=== PATIENT | male | born 1935 | race Caucasian/White ===

== ENCOUNTER 2016-11-30 18:18 | Emergency (ER) | payer OTHER ==
[~2016-11-30] VITALS: Ht 177.8 cm; Wt 53.7 kg
[~2016-11-30 18:18] MED LIST: ASPI81TA82 PO; BUPR150T3 PO; CARV6.252 PO; CITA20TA4 PO; COQ-100C2 PO; GLIM4TAB PO; LANTINJ SC; LEVA250T14 PO; LEVO50TA4 PO; LIOT25TA PO; LISI-363 PO; OMEGCAP19 PO; PROS5TAB2 PO; TAMS0.4C4 PO; VITA-13 PO
[2016-11-30 18:28] VITALS: BP 129/68; PULSE 60; RESP 18; TEMP 98.3; O2SAT 99
[2016-11-30] MEDS ORDERED: CARV25TA PO (19:03)
[2016-11-30] MEDS ORDERED: TAMS0.4C4 PO (19:03)
[2016-11-30] MEDS ORDERED: FISH120014 PO (19:03)
[2016-11-30] MEDS ORDERED: LOVA20TA PO (19:03)
[2016-11-30] MEDS ORDERED: LEVO75TA3 PO (19:03)
[2016-11-30] MEDS ORDERED: LISI10TA3 PO (19:03)
[2016-11-30] MEDS ORDERED: CHOL50006 PO (19:03)
[2016-11-30] MEDS ORDERED: COQ-100C2 PO (19:03)
[2016-11-30] MEDS ORDERED: ASPI81TA81 PO (19:05)
--- NOTE | 2016-11-30 19:06 | PD ---
HPI Chief Complaint: Skin Problem Time Seen by Provider: 19:06 Travel History International Travel<30 days: No Contact w/Intl Traveler<30days: No Traveled to known affect area: No History of Present Illness HPI 80-year-old male with history of DM presents to the ED for evaluation of pain in the left foot. Patient states he has neuropathy and normally does not have any sensation in the foot. He states that 2 days ago he began to have pain. However this resolved. He states that today when he removed his sock the fourth digit of the left foot nail came out and he noticed that the toe was red. He denies fevers, chills, weakness, limitations to range of motion or loss of strength of the extremity. He states that he sees a continuous towel roller (Dr. Joaquin) for diabetic foot check, last seen approximately 6 months ago. PFSH Past Medical History Cardiac Catheterization: Yes Cardiovascular Problems: Yes High Cholesterol: Yes Chest Pain: Yes Coronary Artery Disease: Yes Diabetes: Yes Patient Takes Glucophage: No Genitourinary: Yes (enlarged prostate) Hypertension: Yes Neurologic: Yes (neuropathy) Myocardial Infarction: Yes (x1) Thyroid Disease: Yes Tetanus Vaccination: > 5 Years Influenza Vaccination: Yes Past Surgical History AICD: Yes (biotronik) Cardiac Surgery: Yes (defib/pacemaker) Oral Surgery: Yes (polups removed from tongue) Pacemaker: Yes (biotronik) Tonsillectomy: Yes Other Surgery: Yes Social History Alcohol Use: No Tobacco Use: No Substance Use: No Allergies-Medications (Allergen,Severity, Reaction): Coded Allergies: Amoxicillin (Unverified Allergy, Unknown, 11/30/16) Sulfa (Unverified Allergy, Unknown, 11/30/16) Reported Meds & Prescriptions Reported Meds & Active Scripts Active Clindamycin (Clindamycin HCl) 150 Mg Cap 300 Mg PO Q6H 10 Days Reported Aubrey Solostar Pen Inj (Insulin Glargine) 300 Unit/Ml Pen 20 Units SQ HS Humalog Cartridge Inj (Insulin Lispro (Human) Inj) 300 Unit/3 Ml Soln 8-10 Units SQ TIDAC PRN Aspir-81 (Aspirin) 81 Mg Tabdr 1 Tab PO DAILY Vitamin D (Cholecalciferol) 5,000 Unit Tab 1 Tab PO DAILY Fish Oil ([place]-3 Fatty Acids) 1,200 Mg Cap 1 Cap PO DAILY Tamsulosin (Tamsulosin HCl) 0.4 Mg Cap 0.4 Mg PO HS Lovastatin 20 Mg Tab 20 Mg PO DAILY Coq-10 (Coenzyme Q10 (Ubidecarenone)) 100 Mg Cap 1 Cap PO DAILY Carvedilol 25 Mg Tab 25 Mg PO BID Levothyroxine (Levothyroxine Sodium) 75 Mcg Tab 75 Mcg PO DAILY Lisinopril 10 Mg Tab 10 Mg PO DAILY Review of Systems Except as stated in HPI: all other systems reviewed are Neg Physical Exam Narrative GENERAL: Well-nourished, well-developed nontoxic appearing white male in no acute distress. SKIN: Focused skin assessment warm/dry. HEAD: Normocephalic. EYES: No scleral icterus. No injection or drainage. NECK: Supple, trachea midline. No JVD or lymphadenopathy. CARDIOVASCULAR: Regular rate and rhythm without murmurs, gallops, or rubs. RESPIRATORY: Breath sounds equal bilaterally. No accessory muscle use. GASTROINTESTINAL: Abdomen soft, non-tender, nondistended. MUSCULOSKELETAL: No cyanosis. The patient is ambulatory with a cane. FOCUSED LEFT LOWER EXTREMITY EXAM: 2+ radial pulse. The nail of the fourth toe is completely avulsed. The entire digit is erythematous, warm, tender. There is 2+ edema to the mid foot. Patient is able to flex the ankle and toes. Cap refill approximately 2 seconds. BACK: Nontender without obvious deformity. No CVA tenderness. Data Data Last Documented VS Vital Signs Date Time Temp Pulse Resp B/P Pulse Ox O2 Delivery O2 Flow Rate FiO2 11/30/16 19:50 60 16 157/75 97 Room Air 11/30/16 18:28 98.3 Orders Foot, Complete (Cur6isq) (11/30/16 19:10) Basic Metabolic Panel (Bmp) (11/30/16 19:26) Complete Blood Count With Diff (11/30/16 19:26) Iv Access Insert/Monitor (11/30/16 19:26) Westergren Sedimentation Rate (11/30/16 19:26) C-Reactive Protein (Crp) (11/30/16 19:26) Clindamycin Inj (Cleocin Inj) (11/30/16 19:30) Ketorolac Inj (Toradol Inj) (11/30/16 19:30) Labs Laboratory Tests Test 11/30/16 19:45 White Blood Count 13.2 TH/MM3 Red Blood Count 4.08 MIL/MM3 Hemoglobin 12.4 GM/DL Hematocrit 35.3 % Mean Corpuscular Volume 86.5 FL Mean Corpuscular Hemoglobin 30.3 PG Mean Corpuscular Hemoglobin 35.1 % Concent Red Cell Distribution Width 13.0 % Platelet Count 222 TH/MM3 Mean Platelet Volume 7.7 FL Neutrophils (%) (Auto) 66.9 % Lymphocytes (%) (Auto) 21.8 % Monocytes (%) (Auto) 7.3 % Eosinophils (%) (Auto) 3.2 % Basophils (%) (Auto) 0.8 % Neutrophils # (Auto) 8.8 TH/MM3 Lymphocytes # (Auto) 2.9 TH/MM3 Monocytes # (Auto) 1.0 TH/MM3 Eosinophils # (Auto) 0.4 TH/MM3 Basophils # (Auto) 0.1 TH/MM3 CBC Comment DIFF FINAL Differential Comment Erythrocyte Sedimentation Rate 1 mm/hr Sodium Level 143 MEQ/L Potassium Level 4.7 MEQ/L Chloride Level 106 MEQ/L Carbon Dioxide Level 27.4 MEQ/L Anion Gap 10 MEQ/L Blood Urea Nitrogen 35 MG/DL Creatinine 2.30 MG/DL Estimat Glomerular Filtration 27 ML/MIN Rate Random Glucose 78 MG/DL Calcium Level 9.1 MG/DL MDM Medical Decision Making Medical Screen Exam Complete: Yes Emergency Medical Condition: Yes Differential Diagnosis Nail avulsion versus cellulitis versus osteomyelitis versus other Narrative Course 80-year-old male with history of DM presents to the ED for evaluation of pain in the left foot. Patient states he has neuropathy and normally does not have any sensation in the foot. He states that 2 days ago he began to have pain. However this resolved. He states that today when he removed his sock the nail of fourth digit of the left foot came off and he noticed that the toe was red. He denies fevers, chills, weakness, limitations to range of motion or loss of strength of the extremity. He states that he sees a continuous towel roller (Dr. Joaquin) for diabetic foot check, last seen approximately 6 months ago. Vitals reviewed. Physical exam reveals toenail avulsion. The 4th digit of the left foot is edematous, erythematous, warm. There is 2+ edema to the midfoot. Foot is insensate. X rays reveal [id number] osteoarthritis, no acute bony abnormality per radiology read. IV established. Patient was administered 100 mg clindamycin IV. CBC with leukocytosis of 13.2. ESR 1. CRP pending. BMP with elevated BUN and creatinine. Review of the patient's record reveals this is near baseline. Patient denies renal problems. The patient is confident that he'll be able to follow closely with his continuous towel roller. He was provided a prescription for 300 mg clindamycin 4 times a day 10 days. He is instructed to take the medication as prescribed, call for follow-up with Dr. Joaquin on Friday. I marked the area of erythema and instructed the patient to return should symptoms worsen. He indicated understanding of the instructions and is agreeable to the care plan. He stable and discharged home. Diagnosis Primary Impression: Cellulitis of fourth toe, left Additional Impression: Nail avulsion of toe Qualified Code: S91.209A - Nail avulsion of toe, initial encounter Referrals: Referral Coordinator Patient Instructions: Cellulitis (ED), General Instructions, Nail Avulsion (ED) Additional Instructions: Rest, hydrate. Do not change the dressing for 24 hours. You may shower normally. Do not submerge the wound. After bathing pat of wound dry. Allow the wound to air dry for 10-15 minutes. Apply a thin layer of antibiotic ointment and a clean, dry dressing. Take the antibiotics as they are prescribed, even if your symptoms resolve. Utilize [id number] pain medications, as described on the label, as needed. Follow up with Dr. Joaquin as discussed. Return to the ED if redness spreads beyond the marked area. Return to the ED for any urgent or emergent medical condition. Med/Other Pt SpecificInfo: Prescription(s) given Scripts Clindamycin 150 Mg [id number] Mg PO Q6H 10 Days Ref 0 Prov:Thuan Montana MD 11/30/16 Disposition: 01 DISCHARGE HOME Condition: Stable Falguni Hawkins Nov 30, 2016 19:06
[2016-11-30] MEDS ORDERED: HUMA100I2 SQ (19:08)
[2016-11-30] MEDS ORDERED: INSU1.2I SQ (19:11)
[2016-11-30] MEDS ORDERED: CLINDAMYCIN INJ 900 MG in SODIUM CHLORIDE 0.9% INJ 100 ML IV ONE (19:30)
[2016-11-30] MEDS: KETOROLAC TROMETHAMINE 30 MG/ML (IVP) VIAL IV PUSH ONE ×2 (19:30→19:53)
[2016-11-30 19:50] VITALS: BP 157/75; PULSE 60; RESP 16; O2SAT 97
[2016-11-30 19:56] LABS: AUTOMATED NEUTROPHIL # 8.8 TH/MM3 (1.8-7.7); BASOPHIL # 0.1 TH/MM3 (0-0.2); BASOPHIL % 0.8 % (0.0-2.0); EOSINOPHIL # 0.4 TH/MM3 (0-0.4); EOSINOPHIL % 3.2 % (0.0-4.0); HEMATOCRIT 35.3 % (39.0-51.0); HEMO FLAGS DIFF FINAL; LYMPH % 21.8 % (9.0-44.0); LYMPHOCYTE # 2.9 TH/MM3 (1.0-4.8); MEAN CELL VOLUME 86.5 FL (80.0-100.0); MEAN CORPUSCULAR HEMOGLOBIN 30.3 PG (27.0-34.0); MEAN CORPUSCULAR HGB CONC 35.1 % (32.0-36.0); MONO % 7.3 % (0.0-8.0); NEUT % 66.9 % (16.0-70.0); PLATELET COUNT 222 TH/MM3 (150-450); RED BLOOD COUNT 4.08 MIL/MM3 (4.50-5.90); WHITE BLOOD COUNT 13.2 TH/MM3 (4.0-11.0)
[2016-11-30 20:08] LABS: POTASSIUM 4.7 MEQ/L (3.5-5.1)
[2016-11-30 20:11] LABS: BICARBONATE 27.4 MEQ/L (21.0-32.0)
--- NOTE | 2016-11-30 20:14 | RADHPO ---
EXAM DATE/TIME: 11/30/2016 19:28 [facility] COMPARISON: No previous studies available for comparison. INDICATIONS : Left foot fourth digit pain. Fourth digit toe nail came off when patient removed his sock this nate pro. No known injury. MEDICAL HISTORY : None. SURGICAL HISTORY : None. ENCOUNTER: Initial ACUITY: 1 day PAIN SCORE: 4/10 LOCATION: Left foot. FINDINGS: Mild to moderate osteoarthritis. Vascular calcification is present. Bone spur posterior calcaneus. No acute fracture or dislocation. CONCLUSION: 1. Mild to moderate osteoarthritis. Bone spur posterior calcaneus. No acute bony abnormalities. Ry Sanchez MD on November 30, 2016 at 20:10 Board Certified Radiologist. This report was verified electronically.
[2016-11-30] MEDS ORDERED: CLIN1CAP5 PO ×2 (21:20→21:38)
[2016-11-30 21:39] VITALS: BP 170/77
== END 2016-11-30 21:41 | disposition home or self-care (01) ==
LOC: PHEFT 18:18
DX: L03.032 Cellulitis of left toe (principal); S91.205A Unspecified open wound of left lesser toe(s) with damage to nail, initial encounter; G62.9 Polyneuropathy, unspecified; I10 Essential (primary) hypertension; E11.9 Type 2 diabetes mellitus without complications; E07.9 Disorder of thyroid, unspecified; E78.00 Pure hypercholesterolemia, unspecified; X58.XXXA Exposure to other specified factors, initial encounter; Z79.4 Long term (current) use of insulin; Z87.438 Personal history of other diseases of male genital organs; Z86.79 Personal history of other diseases of the circulatory system; Z86.69 Personal history of other diseases of the nervous system and sense organs
CPT/HCPCS: 73630; 80048; 85025; 85652; 86140; 96365; 96375; 99283; J1885

== ENCOUNTER 2018-05-19 15:16 | Inpatient (IN) ==
[2018-05-19] MEDS ORDERED: Sod Chloride 0.9% Inj 1,000 ML IV.SIG SCH ×2 (15:30→16:30)
[2018-05-19 15:56] LABS: Baso # (Auto) 0.6 th/mm3 (0.0-0.2); Baso % (Auto) 2.5 % (0.0-2.0); Hematocrit 36.4 % (39.0-51.0); Hemoglobin 12.4 gm/dL (13.0-17.0); Lymph # (Auto) 1.9 th/mm3 (1.0-4.8); Lymph % (Auto) 8.5 % (9.0-44.0); Mean Corpuscular HGB Conc 34.1 % (32.0-36.0); Mean Corpuscular Hemoglobin 29.6 pg (27.0-34.0); Mean Corpuscular Volume 86.9 fL (80.0-100.0); Mean Platelet Volume 8.7 fL (7.0-11.0); Mono # (Auto) 1.5 th/mm3 (0.0-0.9); Mono % (Auto) 6.5 % (0.0-8.0); Neut # (Auto) 18.7 th/mm3 (1.8-7.7); Neut % (Auto) 82.5 % (16.0-70.0); Platelet Count 166 th/mm3 (150-450); Red Blood Count 4.19 mil/mm3 (4.50-5.90); Red Cell Distribution Width 13.5 % (11.6-17.2); White Blood Count 22.7 th/mm3 (4.0-11.0)
--- NOTE | 2018-05-19 15:59 | ED ---
HPI General Chief Complaint: Fall Stated Complaint: Fall Time Seen by Provider: 05/19/18 15:20 History of Present Illness HPI Narrative: 82-year-old male with a past medical history of heart disease, hypertension, diabetes presents to the emergency room by EMS after he was found on on the floor alert unable to move. Patient states he fell Friday evening on the floor and was unable to get up. Patient denies loss of consciousness. He states he was laying down on his right side mostly. He complains of extreme thirst,left-sided neck pain and right sided body pain. He denies drinking or eating food since the fall. Today his son was worried about him called the police and they found him on the floor. Patient denies chest pain, shortness of breath, abdominal pain, nausea, vomiting or diarrhea. Patient denies hip pain or back pain at this time. Related Data Home Medications Medication Instructions Recorded Confirmed carvedilol [Coreg] 25 mg PO BID 05/19/18 05/19/18 cholecalciferol (vitamin D3) 5,000 units PO DAILY 05/19/18 05/19/18 [Vitamin D3] insulin glargine U-300 conc 20 unit SUBCUT HS 05/19/18 05/19/18 [Toujeo Max U-300 SoloStar] insulin regular human [Novolin R 10 unit SUBCUT TIDAC 05/19/18 05/19/18 Regular U-100 Insuln] levothyroxine 75 mcg PO DAILY 05/19/18 05/19/18 lisinopril 10 mg PO DAILY 05/19/18 05/19/18 lovastatin 40 mg PO QPM 05/19/18 05/19/18 montelukast [Singulair] 10 mg PO QPM 05/19/18 05/19/18 omega 0-bxv-vbe-fish oil [Fish Oil] 1,200 mg PO DAILY 05/19/18 05/19/18 tamsulosin 0.4 mg PO DAILY 05/19/18 05/19/18 Allergies Allergy/AdvReac Type Severity Reaction Status Date / Time amoxicillin Allergy Unknown Hives Verified 05/19/18 15:19 Sulfa (Sulfonamide Allergy Unknown Nausea/Vomi Verified 05/19/18 15:19 Antibiotics) ting Review of Systems Constitutional Reports weakness Eyes Denies change in vision ENT Denies headache(s) and Denies nasal congestion Cardiovascular Denies chest pain Respiratory Denies dyspnea Gastrointestinal Denies abdominal pain Genitourinary Denies difficulty urinating Musculoskeletal Reports myalgias and Reports arthralgias Integumentary/Breasts Denies rash Neurologic Denies focal weakness, Denies numbness and Denies tingling Psychiatric Denies depression Endocrine Denies polyuria Hematologic/Lymphatic Denies easy bruising [facility] Medical History Medical History Diabetes (Acute) Hypertension (Acute) Pacemaker (Acute) Surgical History Surgical History AICD (automatic cardioverter/defibrillator) present (Acute) History of renal stent (Acute) Social History Social History Substance History: No History of Abuse Smoking Status: Never smoker How Often Do You Have a Drink Containing Alcohol: Never Recent Out of Country Travel within the Last 8 Weeks: No Immunization History Tetanus Immunization: Unsure Hx Influenza Vaccine This Season: Yes Exam Narrative Exam Narrative: GENERAL: Patient is alert and oriented -3 SKIN: Focused skin assessment warm/dry. HEAD: Atraumatic. Normocephalic. EYES: Pupils equal and round. No scleral icterus. No injection or drainage. ENT: No nasal bleeding or discharge. Mucous membranes pink and moist. NECK: Trachea midline. No JVD. Left-sided neck tenderness at the lower paraspinal muscles. CARDIOVASCULAR: Regular rate and rhythm. No murmur appreciated. RESPIRATORY: No accessory muscle use. Clear to auscultation. Breath sounds equal bilaterally. GASTROINTESTINAL: Abdomen soft, non-tender, nondistended. Hepatic and splenic margins not palpable. MUSCULOSKELETAL: No obvious deformities. No clubbing. No cyanosis. No edema. NEUROLOGICAL: Awake and alert. No obvious cranial nerve deficits. Motor grossly within normal limits. Normal speech. PSYCHIATRIC: Appropriate mood and affect; insight and judgment normal. Course Reevaluation(s) Reevaluation #1: Patient condition improved during the ER course. I personally reexamined and counseled the patient about his diagnosis and results. Time: 17:23 Initial Documented Vital Signs Pulse Rate 79 05/19/18 15:30 Respiratory Rate 18 05/19/18 15:30 Blood Pressure 178/78 H 05/19/18 15:30 Pulse Oximetry 95 05/19/18 15:30 Last Documented Vital Signs Temperature 98.7 F 05/19/18 17:23 Pulse Rate 78 05/19/18 17:23 Respiratory Rate 18 05/19/18 17:23 Blood Pressure 184/84 H 05/19/18 17:23 Pulse Oximetry 95 05/19/18 17:23 Medical Decision Making MDM Narrative Medical Screen Exam Complete: Yes Emergency Medical Condition: Yes Lab Data Result diagrams: 05/19/18 15:45 05/19/18 15:45 Lab Results 05/19/18 05/19/18 05/19/18 Range/Units 15:22 15:45 15:45 CBC w Diff Slide review pending WBC 22.7 H (4.0-11.0) th/mm3 RBC 4.19 L (4.50-5.90) mil/mm3 Hgb 12.4 L (13.0-17.0) gm/dL Hct 36.4 L (39.0-51.0) % MCV 86.9 (80.0-100.0) fL MCH 29.6 (27.0-34.0) pg MCHC 34.1 (32.0-36.0) % RDW 13.5 (11.6-17.2) % Plt Count 166 (150-450) th/mm3 MPV 8.7 (7.0-11.0) fL Neut % (Auto) 82.5 H (16.0-70.0) % Lymph % (Auto) 8.5 L (9.0-44.0) % [place] % (Auto) 6.5 (0.0-8.0) % Eos % (Auto) 0.0 (0.0-4.0) % Baso % (Auto) 2.5 H (0.0-2.0) % Neut # (Auto) 18.7 H (1.8-7.7) th/mm3 Lymph # (Auto) 1.9 (1.0-4.8) th/mm3 [place] # (Auto) 1.5 H (0.0-0.9) th/mm3 Eos # (Auto) 0.0 (0.0-0.4) th/mm3 Baso # (Auto) 0.6 H (0.0-0.2) th/mm3 WBC Differential . Diff Scan Auto diff confirmed Differential Comment . Sodium 136 (136-145) meq/L Potassium 5.3 H (3.5-5.1) meq/L Chloride 103 (98-107) meq/L Carbon Dioxide 21.1 (21.0-32.0) meq/L Anion Gap 12 (5-15) meq/L BUN 58 H (7-18) mg/dL Creatinine 3.20 H (0.60-1.30) mg/dL Estimated GFR 19 L (>89) mL/min POC Glucose 376 H (68-110) mg/dl Random Glucose 377 H (74-106) mg/dL Lactic Acid (0.4-2.0) mmol/L Calcium 9.0 (8.5-10.1) mg/dL Total Bilirubin 1.0 (0.2-1.0) mg/dL AST 54 H (15-37) U/L ALT 29 (12-78) U/L Alkaline Phosphatase 88 (45-117) U/L Total Creatine Kinase (39-308) U/L CK-MB (CK-2) (0.5-3.6) ng/mL CK-MB (CK-2) % (0.0-4.0) % Troponin I 0.41 H (0.02-0.05) ng/mL B-Natriuretic Peptide (0-100) pg/mL Total Protein 7.2 (6.4-8.2) g/dL Albumin 2.9 L (3.4-5.0) g/dL Urine Color (Yellw/Straw) Urine Clarity (Clear) Urine pH (5.0-8.5) Ur Specific [place] (1.002-1.035) Urine Protein (Neg-Trace) mg/dL Urine Glucose (UA) (Negative) mg/dL Urine Ketones (Negative) mg/dL Urine Occult Blood (Negative) Urine Nitrate (Negative) Urine Bilirubin (Negative) Urine Urobilinogen (Less than 2) mg/dL Ur Leukocyte Esterase (Negative) Urine WBC (0-5) /hpf Urine WBC Clumps (None) Urine Bacteria (None) /hpf Micro UA Comment Ur Microscopic Review Urine Culture Comments 05/19/18 05/19/18 05/19/18 Range/Units 15:45 16:15 16:55 CBC w Diff WBC (4.0-11.0) th/mm3 RBC (4.50-5.90) mil/mm3 Hgb (13.0-17.0) gm/dL Hct (39.0-51.0) % MCV (80.0-100.0) fL MCH (27.0-34.0) pg MCHC (32.0-36.0) % RDW (11.6-17.2) % Plt Count (150-450) th/mm3 MPV (7.0-11.0) fL Neut % (Auto) (16.0-70.0) % Lymph % (Auto) (9.0-44.0) % [place] % (Auto) (0.0-8.0) % Eos % (Auto) (0.0-4.0) % Baso % (Auto) (0.0-2.0) % Neut # (Auto) (1.8-7.7) th/mm3 Lymph # (Auto) (1.0-4.8) th/mm3 [place] # (Auto) (0.0-0.9) th/mm3 Eos # (Auto) (0.0-0.4) th/mm3 Baso # (Auto) (0.0-0.2) th/mm3 WBC Differential Diff Scan Differential Comment Sodium (136-145) meq/L Potassium (3.5-5.1) meq/L Chloride (98-107) meq/L Carbon Dioxide (21.0-32.0) meq/L Anion Gap (5-15) meq/L BUN (7-18) mg/dL Creatinine (0.60-1.30) mg/dL Estimated GFR (>89) mL/min POC Glucose (68-110) mg/dl Random Glucose (74-106) mg/dL Lactic Acid 2.3 H (0.4-2.0) mmol/L Calcium (8.5-10.1) mg/dL Total Bilirubin (0.2-1.0) mg/dL AST (15-37) U/L ALT (12-78) U/L Alkaline Phosphatase (45-117) U/L Total Creatine Kinase 1164 H (39-308) U/L CK-MB (CK-2) 8.4 H (0.5-3.6) ng/mL CK-MB (CK-2) % 0.7 (0.0-4.0) % Troponin I Cancelled (0.02-0.05) ng/mL B-Natriuretic Peptide 1650 H (0-100) pg/mL Total Protein (6.4-8.2) g/dL Albumin (3.4-5.0) g/dL Urine Color (Yellw/Straw) Urine Clarity (Clear) Urine pH (5.0-8.5) Ur Specific [place] (1.002-1.035) Urine Protein (Neg-Trace) mg/dL Urine Glucose (UA) (Negative) mg/dL Urine Ketones (Negative) mg/dL Urine Occult Blood (Negative) Urine Nitrate (Negative) Urine Bilirubin (Negative) Urine Urobilinogen (Less than 2) mg/dL Ur Leukocyte Esterase (Negative) Urine WBC (0-5) /hpf Urine WBC Clumps (None) Urine Bacteria (None) /hpf Micro UA Comment Ur Microscopic Review Urine Culture Comments 05/19/18 05/19/18 Range/Units 17:05 17:31 CBC w Diff WBC (4.0-11.0) th/mm3 RBC (4.50-5.90) mil/mm3 Hgb (13.0-17.0) gm/dL Hct (39.0-51.0) % MCV (80.0-100.0) fL MCH (27.0-34.0) pg MCHC (32.0-36.0) % RDW (11.6-17.2) % Plt Count (150-450) th/mm3 MPV (7.0-11.0) fL Neut % (Auto) (16.0-70.0) % Lymph % (Auto) (9.0-44.0) % [place] % (Auto) (0.0-8.0) % Eos % (Auto) (0.0-4.0) % Baso % (Auto) (0.0-2.0) % Neut # (Auto) (1.8-7.7) th/mm3 Lymph # (Auto) (1.0-4.8) th/mm3 [place] # (Auto) (0.0-0.9) th/mm3 Eos # (Auto) (0.0-0.4) th/mm3 Baso # (Auto) (0.0-0.2) th/mm3 WBC Differential Diff Scan Differential Comment Sodium (136-145) meq/L Potassium (3.5-5.1) meq/L Chloride (98-107) meq/L Carbon Dioxide (21.0-32.0) meq/L Anion Gap (5-15) meq/L BUN (7-18) mg/dL Creatinine (0.60-1.30) mg/dL Estimated GFR (>89) mL/min POC Glucose 395 H (68-110) mg/dl Random Glucose (74-106) mg/dL Lactic Acid (0.4-2.0) mmol/L Calcium (8.5-10.1) mg/dL Total Bilirubin (0.2-1.0) mg/dL AST (15-37) U/L ALT (12-78) U/L Alkaline Phosphatase (45-117) U/L Total Creatine Kinase (39-308) U/L CK-MB (CK-2) (0.5-3.6) ng/mL CK-MB (CK-2) % (0.0-4.0) % Troponin I (0.02-0.05) ng/mL B-Natriuretic Peptide (0-100) pg/mL Total Protein (6.4-8.2) g/dL Albumin (3.4-5.0) g/dL Urine Color Yellow (Yellw/Straw) Urine Clarity Clear (Clear) Urine pH 5.5 (5.0-8.5) Ur Specific [place] 1.025 (1.002-1.035) Urine Protein 300 or greater H (Neg-Trace) mg/dL Urine Glucose (UA) 250 H (Negative) mg/dL Urine Ketones Trace H (Negative) mg/dL Urine Occult Blood Large H (Negative) Urine Nitrate Negative (Negative) Urine Bilirubin Negative (Negative) Urine Urobilinogen 0.2 (Less than 2) mg/dL Ur Leukocyte Esterase Small H (Negative) Urine WBC 21-50 H (0-5) /hpf Urine WBC Clumps Occasional H (None) Urine Bacteria Many H (None) /hpf Micro UA Comment Culture indicated Ur Microscopic Review Microscopic reviewed Urine Culture Comments Culture indicated Imaging Data Radiologist's impression: Chest X-Ray 05/19/18 15:48 CONCLUSION: Clear lungs. Head CT 05/19/18 15:49 CONCLUSION: 1. No acute hemorrhage or mass effect. 2. Moderate atrophic changes again noted. . Cervical Spine CT 05/19/18 15:50 CONCLUSION: 1. Moderate to severe degenerative changes are identified without evidence for acute fracture or listhesis. Discharge Plan Discharge Disposition Patient Disposition: 30 Still Patient Discharge Condition Condition: Fair Discharge Details Discharge Comment: Admission has been discussed and accepted by Dr. Parks Diagnosis: Rhabdomyolysis, Acute UTI, CESIA (acute kidney injury), Acute dehydration, Acute hyperglycemia Physicians Team ED Provider: Ramon Perla Primary Care Provider: Primary Care Laura Byrne Attending Provider: Juan Alberto Parks Status ED Status: Admitted Patient
[2018-05-19 16:04] LABS: Chloride 103 meq/L (98-107); Potassium 5.3 meq/L (3.5-5.1); Sodium 136 meq/L (136-145)
[2018-05-19 16:08] LABS: Albumin 2.9 g/dL (3.4-5.0); Anion Gap 12 meq/L (5-15); Blood Urea Nitrogen 58 mg/dL (7-18); Carbon Dioxide 21.1 meq/L (21.0-32.0); Glucose,Random 377 mg/dL (74-106)
[2018-05-19 16:11] LABS: Alanine Aminotransferase 29 U/L (12-78); Aspartate Aminotransferase 54 U/L (15-37); Glomerular Filtration Rate 19 mL/min (>89)
[2018-05-19 16:13] LABS: Total Protein 7.2 g/dL (6.4-8.2)
[2018-05-19 16:14] LABS: Alkaline Phosphatase 88 U/L (45-117)
[2018-05-19 16:16] LABS: Troponin I 0.41 ng/mL (0.02-0.05)
[2018-05-19] MEDS ORDERED: Sodium Chlor 0.9% Inj 100 ML IV.SIG ONE (16:18)
[2018-05-19] MEDS ORDERED: Vancomycin Inj 1 GM/200 ML PIGGYBACK IV.SIG ONE (16:18)
--- NOTE | 2018-05-19 16:23 | XR ---
EXAM DATE: 05/19/2018 3:48 PM EDT AGE/SEX: 82 years / Male INDICATIONS: Shortness of breath status post fall. CLINICAL DATA: This is the patient's initial encounter. Patient reports that signs and symptoms have been present for 2 days and indicates a pain score of 0/10. MEDICAL/SURGICAL HISTORY: None. Pacemaker. COMPARISON: No prior exams available for comparison. FINDINGS: Remote nonunited right midclavicular fracture deformity. Cardiomegaly. Remote right rib fractures. Tammie ngs are clear. Pacer/ICD device from a left subclavian transvenous approach noted. CONCLUSION: Clear lungs. Electronically signed by: Gaudencio Deluna MD 05/19/2018 4:21 PM EDT
[2018-05-19] MEDS ORDERED: Vancomycin Inj 1,000 MG in Sodium Chlor 0.9% Inj 250 ML IV.SIG ONE (16:30)
--- NOTE | 2018-05-19 16:55 | CT ---
EXAM DATE: 05/19/2018 3:54 PM EDT AGE/SEX: 82 years / Male INDICATIONS: Found on floor alert and unable to move. CLINICAL DATA: This is the patient's initial encounter. Patient reports that signs and symptoms have been present for 1 day and indicates a pain score of 0/10. MEDICAL/SURGICAL HISTORY: Hypertension. Diabetes. Cardiovascular disease. Pacemaker. RADIATION DOSE: 63.91 CTDI (mGy) COMPARISON: PO[facility], CT BRAIN W/O CONTRAST, 11/29/2015. . TECHNIQUE: CT of the head without contrast. Using automated exposure control and adjustment of the mA and/or kV according to patient size, radiation dose was kept as low as reasonably achievable to ob tain optimal diagnostic quality images. DICOM format image data is available electronically for revi ew and comparison. FINDINGS: Cerebrum: The ventricles are normal for age with diffuse moderate atrophic change with sulcal and ve ntricular prominence. No evidence of midline shift, mass lesion, hemorrhage or acute infarction. No extraaxial fluid collections are seen. Posterior Fossa: The cerebellum and brainstem are intact. The 4th ventricle is midline. The cerebe llopontine angle is unremarkable. Extracranial: The visualized portion of the orbits is intact. Skull: The calvaria is intact. No evidence of skull fracture. CONCLUSION: 1. No acute hemorrhage or mass effect. 2. Moderate atrophic changes again noted. . Electronically signed by: Pan Durham MD 05/19/2018 4:54 PM EDT
[2018-05-19 17:01] LABS: CKMB Percent 0.7 % (0.0-4.0); Creatine Kinase MB 8.4 ng/mL (0.5-3.6)
--- NOTE | 2018-05-19 17:06 | CT ---
EXAM DATE: 05/19/2018 3:54 PM EDT AGE/SEX: 82 years / Male INDICATIONS: Found on floor alert and unable to move. CLINICAL DATA: This is the patient's initial encounter. Patient reports that signs and symptoms have been present for 1 day and indicates a pain score of 0/10. MEDICAL/SURGICAL HISTORY: Diabetes. Hypertension. Cardiovascular disease. Pacemaker. RADIATION DOSE: 26.74 CTDI (mGy) COMPARISON: . TECHNIQUE: Contiguous axial images were obtained using helical multirow detector technique. The vol umetric data was post-processed with multiplanar reconstruction in oblique axial, sagittal, and coron al planes. Using automated exposure control and adjustment of the mA and/or kV according to patient s ize, radiation dose was kept as low as reasonably achievable to obtain optimal diagnostic quality faviola ges. DICOM format image data is available electronically for review and comparison. FINDINGS: Alignment normal. Severe disc space narrowing at C3-4 through C7-T1 noted with mild endplate sclerosi s and multilevel osteophytosis. The odontoid process is intact. There is no prevertebral soft tissue swelling. There are no compression deformities. Multilevel uncovertebral hypertrophy is identified at C3-4 through C5-6. There is a remote appearing fracture deformity of the right clavicle identified. There is no evidence for acute fracture. There is incomplete union of the posterior arch of C1. CONCLUSION: 1. Moderate to severe degenerative changes are identified without evidence for acute fracture or lis thesis. Electronically signed by: Gaudencio Deluna MD 05/19/2018 5:04 PM EDT
[2018-05-19 17:11] LABS: Bilirubin,Urine Negative (Negative); Clarity,Urine Clear (Clear); Color,Urine Yellow (Yellw/Straw); Glucose,Urine (UA) 250 mg/dL (Negative); Leukocyte Esterase,Urine Small (Negative); Nitrite,Urine Negative (Negative); PH,Urine 5.5 (5.0-8.5); Specific Gravity,Urine 1.025 (1.002-1.035); Urobilinogen,Urine 0.2 mg/dL (Less than 2)
[2018-05-19 17:18] LABS: Bacteria,Urine Many /hpf; WBC,Urine 21-50 /hpf (0-5)
[2018-05-19] MEDS ORDERED: Vancomycin Consult Pharmacy OTHER PRN (17:41)
[2018-05-19] MEDS: Sod Chloride 0.9% Inj 1,000 ML IV.CONT SCH (17:52)
[2018-05-19] MEDS ORDERED: Dextrose 50% in Water 50 ML Vial IV.PUSH PRN (18:10)
--- NOTE | 2018-05-19 18:12 | P.HPIM ---
History of Present Illness Primary Care Physician: No Primary Care Physician History of Present Illness: Mr. Mccullough is an 82 year old male. He lives alone. He had a fall 3 days ago and has been on the floor of his home since. Today he was found by his son. He is brought into the emergency department. We find that he has a urinary tract infection and severe dehydration with decompensation. Clinical findings include hyperkalemia, acute renal failure, and rhabdomyolysis. Evidence of severe dehydration. Fluid hydration is initiated in the ER and will be continued overnight. Patient does have an elevated troponin and BNP but both of these are likely related to an accentuated by dehydration so they will repeat repeated in the morning for accuracy. Currently the patient gives some history but cannot recollect well and is not at his baseline mental state. He complains of some neck pain but no peripheral joint pains. No fevers. There is leukocytosis. Sepsis is suspected, though official diagnosis of sepsis is not possible due to normal heart rate, normal respiratory rate, and no fever. He does have leukocytosis. Infection source is the urine. Reported baseline medical conditions are hypertension, coronary artery disease, cardiac arrhythmia , and diabetes mellitus type 2. - Diagnosis (1) Hyperkalemia (2) Acute renal failure (3) Elevated troponin (4) Elevated brain natriuretic peptide (BNP) level (5) Rhabdomyolysis (6) Acute UTI (7) CESIA (acute kidney injury) (8) Acute dehydration Inpatient Certification: I certify that the inpatient services were ordered in accordance with Medicare regulations governing the order. This includes certification that hospital inpatient services are reasonable and necessary and in the case of services not specified as inpatient-only under 42 CFR 419.22(n), that they are appropriately provided as inpatient services in accordance to with the 2-midnight benchmark under 43 CFR 412.3(e) Estimated Total Length of Stay (Days): 4 Plans for Post Hospital Care: SNF Review of Systems Constitutional: No fevers, no chills no night sweats, no fatigue, weakness Eyes: No eye pain, no blurry vision, no loss of vision ENT: No sore throat, no ear pain, no rhinorrhea Cardiovascular: No chest pain, no tachycardia, no palpitations, no shortness of breath, no syncope Respiratory: No wheezing, no cough, no shortness of breath Gastrointestinal: No abdominal pain, no black tarry stools, no bright red blood per rectum, no vomiting, no diarrhea Musculoskeletal: No joint pain, no muscle cramps, no stiffness Integumentary: No rash, no ulcers, no drainage Neurologic: No sensory loss, no loss of motor function, no dizziness Psychiatric: No behavioral changes, no hallucinations, no suicidal ideations PMFSH - History History Provided By: Patient - Medical History Medical History: Medical History (Last Updated 05/19/18 @ 17:23 by Alannah Ureña, RN) Diabetes Hypertension Pacemaker - Surgical History Surgical History: Surgical History (Last Updated 05/19/18 @ 17:23 by Alannah Ureña, RN) AICD (automatic cardioverter/defibrillator) present History of renal stent - Tobacco History Smoking Status: Never smoker - Alcohol History How Often Do You Have a Drink Containing Alcohol: Never - Substance Use History Substance History: No History of Abuse - Travel History Recent Travel Out of the Country Within the Last 8 Weeks: No - Immunization History Tetanus Immunization: Unsure Hx Influenza Vaccine This Season: Yes Medications and Allergies Active Medications: Active Medications Sodium Chloride (Ns Inj) 1,000 mls @ 0 mls/hr IV.SIG BOLUS ROJELIO Last Infusion: 05/19/18 17:49 Dose: Infused Sodium Chloride (Ns Inj) 1,000 mls @ 125 mls/hr IV.CONT .Q8H ROJELIO Last Admin: 05/19/18 17:52 Dose: 125 mls/hr Cefepime HCl 1,000 mg/ Sodium (Chloride) 100 mls @ 200 mls/hr IV.SIG Q12H ROJELIO Ondansetron HCl (Zofran Inj) 4 mg IV.PUSH Q6H PRN PRN Reason: NAUSEA OR VOMITING Pharmacy Profile Note (Vancomycin Consult Pharmacy) 1 each OTHER UNSCH PRN PRN Reason: Pharmacy to dose Allergies Allergy/AdvReac Type Severity Reaction Status Date / Time amoxicillin Allergy Unknown Hives Verified 05/19/18 15:19 Sulfa (Sulfonamide Allergy Unknown Nausea/Vomi Verified 05/19/18 15:19 Antibiotics) ting Home Medications Medication Instructions Recorded Confirmed Type carvedilol [Coreg] 25 mg PO BID 05/19/18 05/19/18 History cholecalciferol (vitamin D3) 5,000 units PO DAILY 05/19/18 05/19/18 History [Vitamin D3] insulin glargine U-300 conc 20 unit SUBCUT HS 05/19/18 05/19/18 History [Toujeo Max U-300 SoloStar] insulin regular human [Novolin R 10 unit SUBCUT TIDAC 05/19/18 05/19/18 History Regular U-100 Insuln] levothyroxine 75 mcg PO DAILY 05/19/18 05/19/18 History lisinopril 10 mg PO DAILY 05/19/18 05/19/18 History lovastatin 40 mg PO QPM 05/19/18 05/19/18 History montelukast [Singulair] 10 mg PO QPM 05/19/18 05/19/18 History omega 2-pbw-url-fish oil [Fish Oil] 1,200 mg PO DAILY 05/19/18 05/19/18 History tamsulosin 0.4 mg PO DAILY 05/19/18 05/19/18 History Exam Vital signs: Vital Signs 05/19/18 15:30 05/19/18 17:23 Temperature 98.7 F Pulse Rate 79 78 Respiratory Rate 18 18 Blood Pressure 178/78 H 184/84 H Pulse Oximetry 95 95 Intake & Output 05/18/18 05/19/18 05/19/18 18:59 06:59 18:59 Intake Total 1000 / 1000 Output Total 300 / 300 Balance 700 / 700 Weight 87.09 kg Intake: IV 1000 / 1000 NS Inj 1,000 ML @ Wide Open IV. 1000 / 1000 SIG BOLUS ROJELIO Rx#:[id number] Output: Urine Amount (Catheter) 300 / 300 Straight 300 / 300 Narrative: GENERAL: NAD, A&Ox3, overall dry appearance HEAD: Normocephalic. Mucous membranes dry. NECK: Supple, trachea midline. No lymphadenopathy. EYES: No scleral icterus. No injection or drainage. CARDIOVASCULAR: Regular rate and rhythm without murmurs, gallops, or rubs. RESPIRATORY: Breath sounds equal bilaterally. No accessory muscle use. GASTROINTESTINAL: Abdomen soft, non-tender, nondistended. MUSCULOSKELETAL: No cyanosis, or edema. SKIN: Warm and dry. Dry. NEURO: No focal neurological deficits. Results - Labs CBC & Chem 7: 05/19/18 15:45 05/19/18 15:45 Labs: Short CBC 05/19/18 Range/Units 15:45 WBC 22.7 H (4.0-11.0) th/mm3 Hgb 12.4 L (13.0-17.0) gm/dL Hct 36.4 L (39.0-51.0) % Plt Count 166 (150-450) th/mm3 BMP 05/19/18 15:45 Sodium 136 Potassium 5.3 H Chloride 103 Carbon Dioxide 21.1 BUN 58 H Creatinine 3.20 H Calcium 9.0 Cardiac Enzymes 05/19/18 05/19/18 Range/Units 15:45 15:45 Total Creatine Kinase 1164 H (39-308) U/L CK-MB (CK-2) 8.4 H (0.5-3.6) ng/mL Troponin I 0.41 H Cancelled (0.02-0.05) ng/mL Liver Function 05/19/18 Range/Units 15:45 Total Bilirubin 1.0 (0.2-1.0) mg/dL AST 54 H (15-37) U/L ALT 29 (12-78) U/L Alkaline Phosphatase 88 (45-117) U/L Albumin 2.9 L (3.4-5.0) g/dL Urine 05/19/18 Range/Units 17:05 Urine Color Yellow (Yellw/Straw) Urine Clarity Clear (Clear) Urine pH 5.5 (5.0-8.5) Ur Specific [place] 1.025 (1.002-1.035) Urine Protein 300 or greater H (Neg-Trace) mg/dL Urine Glucose (UA) 250 H (Negative) mg/dL - Imaging Impressions Chest X-Ray 05/19/18 15:48 CONCLUSION: Clear lungs. Head CT 05/19/18 15:49 CONCLUSION: 1. No acute hemorrhage or mass effect. 2. Moderate atrophic changes again noted. . Cervical Spine CT 05/19/18 15:50 CONCLUSION: 1. Moderate to severe degenerative changes are identified without evidence for acute fracture or listhesis. Caprini VTE Risk Assessment Caprini VTE Risk Assessment: Moderate/High Risk (score >= 2) Caprini Risk Assessment Model: Point Value = 1 Point Value = 2 Point Value = 3 Point Value = 5 Age 41-60 Minor surgery BMI > 25 kg/m2 Swollen legs Varicose veins or History of unexplained or recurrent spontaneous Oral contraceptives or hormone replacement Sepsis (< 1 month) Serious lung disease, including pneumonia (< 1 month) Abnormal pulmonary function Acute myocardial infarction Congestive heart failure (< 1 month) History of inflammatory bowel disease Medical patient at bed rest Age 61-74 Arthroscopic surgery Major open surgery (> 45 min) Laparoscopic surgery (> 45 min) Malignancy Confined to bed (> 72 hours) Immobilizing plaster cast Central venous access Age >= 75 History of VTE Family history of VTE Factor V Leiden Prothrombin [id number] Lupus anticoagulant Anticardiolipin antibodies Elevated serum homocysteine Heparin-induced thrombocytopenia Other congenital or acquired thrombophilia Stroke (< 1 month) Elective arthroplasty Hip, pelvis, or leg fracture Acute spinal cord injury (< 1 month) Prophylaxis Regimen: Total Risk Factor Score Risk Level Prophylaxis Regimen 0-1 Low Early ambulation 2 Moderate Order ONE of the following: *Sequential Compression Device (SCD) *Heparin 5000 units SQ BID 3-4 Higher Order ONE of the following medications: *Heparin 5000 units SQ TID *Enoxaparin/Lovenox 40 mg SQ daily (WT < 150 kg, CrCl > 30 mL/min) *Enoxaparin/Lovenox 30 mg SQ daily (WT < 150 kg, CrCl > 10-29 mL/min) *Enoxaparin/Lovenox 30 mg SQ BID (WT < 150 kg, CrCl > 30 mL/min) AND/OR *Sequential Compression Device (SCD) 5 or more Highest Order ONE of the following medications: *Heparin 5000 units SQ TID (Preferred with Epidurals) *Enoxaparin/Lovenox 40 mg SQ daily (WT < 150 kg, CrCl > 30 mL/min) *Enoxaparin/Lovenox 30 mg SQ daily (WT < 150 kg, CrCl > 10-29 mL/min) *Enoxaparin/Lovenox 30 mg SQ BID (WT < 150 kg, CrCl > 30 mL/min) AND *Sequential Compression Device (SCD) Assessment and Plan - Assessment (1) Hyperkalemia Code(s): E87.5 - Hyperkalemia Status: Acute (2) Acute renal failure Code(s): N17.9 - Acute kidney failure, unspecified Status: Acute (3) Elevated troponin Code(s): R74.8 - Abnormal levels of other serum enzymes Status: Acute (4) Elevated brain natriuretic peptide (BNP) level Code(s): R79.89 - Other specified abnormal findings of blood chemistry Status : Acute (5) Rhabdomyolysis Code(s): M62.82 - Rhabdomyolysis Status: Acute (6) Acute UTI Code(s): N39.0 - Urinary tract infection, site not specified Status: Acute (7) CESIA (acute kidney injury) Code(s): N17.9 - Acute kidney failure, unspecified Status: Acute (8) Acute dehydration Code(s): E86.0 - Dehydration Status: Acute - Plan 82-year-old male admitted secondary to severe dehydration and physical metabolic decompensation after being trapped on the floor for 3 days. Acute renal failure Severe dehydration Rhabdomyolysis IV hydration Monitor electrolytes Follow renal function Monitor vital signs closely No prior history of kidney disease so this may all be related to dehydration Consider nephrology consult if this is not improving Elevated troponin Elevated BNP Likely related to dehydration Repeat labs in a.m. Hyperkalemia Likely related to dehydration IV hydration Monitor potassium levels Monitor on telemetry Hypertension Continue baseline treatment Follow blood pressures Adjust treatments as needed As needed Catapres Urinary tract infection Cefepime Vancomycin Follow urine cultures Diabetes mellitus type 2 Follow blood sugars Insulin sliding scale Diabetic diet Weakness Physical therapy evaluation once patient stabilized Prolonged time down on the floor, risk for blood clots Obtain bilateral lower extremity ultrasound DVT prophylaxis SCDs
[2018-05-19] MEDS: Insulin NovoLOG Aspart Correctional Sugar Inj SQ SCH (20:35)
--- NOTE | 2018-05-19 21:22 | P.PN ---
Subjective Interval history: NOT SEEN Physical Exam Vital signs: Vital Signs 05/19/18 15:30 05/19/18 17:23 05/19/18 17:38 Temperature 98.7 F Pulse Rate 79 78 Respiratory Rate 18 18 Blood Pressure 178/78 H 184/84 H 162/73 H Pulse Oximetry 95 95 05/19/18 18:10 05/19/18 18:33 05/19/18 19:04 Temperature 98.7 F Pulse Rate 102 H 78 74 Respiratory Rate 29 H 20 Blood Pressure 155/74 H 162/67 H Pulse Oximetry 94 L Intake & Output 05/19/18 05/19/18 05/20/18 06:59 18:59 06:59 Intake Total 1250 / 1250 200 / 200 Output Total 300 / 300 Balance 950 / 950 200 / 200 Weight 89.6 kg Intake: IV 1250 / 1250 200 / 200 Maxipime Inj 1,000 MG In NS Inj 100 / 100 100 ML @ 200 mls/hr IV.SIG ONCE ONE Rx#:[id number] NS Inj 1,000 ML @ Wide Open IV. 1000 / 1000 SIG BOLUS ROJELIO Rx#:[id number] Vancomycin Inj 1,000 MG In NS 250 / 250 Inj 250 ML @ 200 mls/hr IV.SIG ONCE ONE Rx#:[id number] Vancomycin Inj 500 MG In NS Inj 100 / 100 100 ML @ 200 mls/hr IV.SIG ONCE ONE Rx#:[id number] Output: Urine Amount (Catheter) 300 / 300 Straight 300 / 300 Other: Weight On Admission 89.6 kg Narrative: GENERAL: NAD, A&Ox3, overall dry appearance HEAD: Normocephalic. Mucous membranes dry. NECK: Supple, trachea midline. No lymphadenopathy. EYES: No scleral icterus. No injection or drainage. CARDIOVASCULAR: Regular rate and rhythm without murmurs, gallops, or rubs. RESPIRATORY: Breath sounds equal bilaterally. No accessory muscle use. GASTROINTESTINAL: Abdomen soft, non-tender, nondistended. MUSCULOSKELETAL: No cyanosis, or edema. SKIN: Warm and dry. Dry. NEURO: No focal neurological deficits. - Urinary Catheter Management Straight Cath placed during this visit: no Results - Labs CBC & Chem 7: 05/19/18 15:45 05/19/18 15:45 Laboratory Results - last 24 hr 05/19/18 05/19/18 05/19/18 15:22 15:45 15:45 CBC w Diff Slide review pending WBC 22.7 H RBC 4.19 L Hgb 12.4 L Hct 36.4 L MCV 86.9 MCH 29.6 MCHC 34.1 RDW 13.5 Plt Count 166 MPV 8.7 Neut % (Auto) 82.5 H Lymph % (Auto) 8.5 L [place] % (Auto) 6.5 Eos % (Auto) 0.0 Baso % (Auto) 2.5 H Neut # (Auto) 18.7 H Lymph # (Auto) 1.9 [place] # (Auto) 1.5 H Eos # (Auto) 0.0 Baso # (Auto) 0.6 H WBC Differential . Diff Scan Auto diff confirmed Differential Comment . Sodium 136 Potassium 5.3 H Chloride 103 Carbon Dioxide 21.1 Anion Gap 12 BUN 58 H Creatinine 3.20 H Estimated GFR 19 L POC Glucose 376 H Random Glucose 377 H Lactic Acid Calcium 9.0 Total Bilirubin 1.0 AST 54 H ALT 29 Alkaline Phosphatase 88 Total Creatine Kinase CK-MB (CK-2) CK-MB (CK-2) % Troponin I 0.41 H B-Natriuretic Peptide Total Protein 7.2 Albumin 2.9 L Urine Color Urine Clarity Urine pH Ur Specific [place] Urine Protein Urine Glucose (UA) Urine Ketones Urine Occult Blood Urine Nitrate Urine Bilirubin Urine Urobilinogen Ur Leukocyte Esterase Urine WBC Urine WBC Clumps Urine Bacteria Micro UA Comment Ur Microscopic Review Urine Culture Comments 05/19/18 05/19/18 05/19/18 15:45 16:15 16:55 CBC w Diff WBC RBC Hgb Hct MCV MCH MCHC RDW Plt Count MPV Neut % (Auto) Lymph % (Auto) [place] % (Auto) Eos % (Auto) Baso % (Auto) Neut # (Auto) Lymph # (Auto) [place] # (Auto) Eos # (Auto) Baso # (Auto) WBC Differential Diff Scan Differential Comment Sodium Potassium Chloride Carbon Dioxide Anion Gap BUN Creatinine Estimated GFR POC Glucose Random Glucose Lactic Acid 2.3 H Calcium Total Bilirubin AST ALT Alkaline Phosphatase Total Creatine Kinase 1164 H CK-MB (CK-2) 8.4 H CK-MB (CK-2) % 0.7 Troponin I Cancelled B-Natriuretic Peptide 1650 H Total Protein Albumin Urine Color Urine Clarity Urine pH Ur Specific [place] Urine Protein Urine Glucose (UA) Urine Ketones Urine Occult Blood Urine Nitrate Urine Bilirubin Urine Urobilinogen Ur Leukocyte Esterase Urine WBC Urine WBC Clumps Urine Bacteria Micro UA Comment Ur Microscopic Review Urine Culture Comments 05/19/18 05/19/18 05/19/18 17:05 17:31 19:05 CBC w Diff WBC RBC Hgb Hct MCV MCH MCHC RDW Plt Count MPV Neut % (Auto) Lymph % (Auto) [place] % (Auto) Eos % (Auto) Baso % (Auto) Neut # (Auto) Lymph # (Auto) [place] # (Auto) Eos # (Auto) Baso # (Auto) WBC Differential Diff Scan Differential Comment Sodium Potassium Chloride Carbon Dioxide Anion Gap BUN Creatinine Estimated GFR POC Glucose 395 H Random Glucose Lactic Acid 2.2 H Calcium Total Bilirubin AST ALT Alkaline Phosphatase Total Creatine Kinase CK-MB (CK-2) CK-MB (CK-2) % Troponin I B-Natriuretic Peptide Total Protein Albumin Urine Color Yellow Urine Clarity Clear Urine pH 5.5 Ur Specific [place] 1.025 Urine Protein 300 or greater H Urine Glucose (UA) 250 H Urine Ketones Trace H Urine Occult Blood Large H Urine Nitrate Negative Urine Bilirubin Negative Urine Urobilinogen 0.2 Ur Leukocyte Esterase Small H Urine WBC 21-50 H Urine WBC Clumps Occasional H Urine Bacteria Many H Micro UA Comment Culture indicated Ur Microscopic Review Microscopic reviewed Urine Culture Comments Culture indicated 05/19/18 20:23 CBC w Diff WBC RBC Hgb Hct MCV MCH MCHC RDW Plt Count MPV Neut % (Auto) Lymph % (Auto) [place] % (Auto) Eos % (Auto) Baso % (Auto) Neut # (Auto) Lymph # (Auto) [place] # (Auto) Eos # (Auto) Baso # (Auto) WBC Differential Diff Scan Differential Comment Sodium Potassium Chloride Carbon Dioxide Anion Gap BUN Creatinine Estimated GFR POC Glucose 356 H Random Glucose Lactic Acid Calcium Total Bilirubin AST ALT Alkaline Phosphatase Total Creatine Kinase CK-MB (CK-2) CK-MB (CK-2) % Troponin I B-Natriuretic Peptide Total Protein Albumin Urine Color Urine Clarity Urine pH Ur Specific [place] Urine Protein Urine Glucose (UA) Urine Ketones Urine Occult Blood Urine Nitrate Urine Bilirubin Urine Urobilinogen Ur Leukocyte Esterase Urine WBC Urine WBC Clumps Urine Bacteria Micro UA Comment Ur Microscopic Review Urine Culture Comments - Imaging Impressions Chest X-Ray 05/19/18 15:48 CONCLUSION: Clear lungs. Head CT 05/19/18 15:49 CONCLUSION: 1. No acute hemorrhage or mass effect. 2. Moderate atrophic changes again noted. . Cervical Spine CT 05/19/18 15:50 CONCLUSION: 1. Moderate to severe degenerative changes are identified without evidence for acute fracture or listhesis. - Procedures none Assessment and Plan - Assessment (1) Hyperkalemia Code(s): E87.5 - Hyperkalemia Status: Acute (2) Acute renal failure Code(s): N17.9 - Acute kidney failure, unspecified Status: Acute (3) Elevated troponin Code(s): R74.8 - Abnormal levels of other serum enzymes Status: Acute (4) Elevated brain natriuretic peptide (BNP) level Code(s): R79.89 - Other specified abnormal findings of blood chemistry Status : Acute (5) Rhabdomyolysis Code(s): M62.82 - Rhabdomyolysis Status: Acute (6) Acute UTI Code(s): N39.0 - Urinary tract infection, site not specified Status: Acute (7) CESIA (acute kidney injury) Code(s): N17.9 - Acute kidney failure, unspecified Status: Acute (8) Acute dehydration Code(s): E86.0 - Dehydration Status: Acute - Plan 82-year-old male admitted secondary to severe dehydration and physical metabolic decompensation after being trapped on the floor for 3 days. Acute renal failure Severe dehydration Rhabdomyolysis IV hydration Monitor electrolytes Follow renal function Monitor vital signs closely No prior history of kidney disease so this may all be related to dehydration Consider nephrology consult if this is not improving Elevated troponin Elevated BNP Likely related to dehydration Repeat labs in a.m. Hyperkalemia Likely related to dehydration IV hydration Monitor potassium levels Monitor on telemetry Hypertension Continue baseline treatment Follow blood pressures Adjust treatments as needed As needed Catapres Urinary tract infection Cefepime Vancomycin Follow urine cultures Diabetes mellitus type 2 Follow blood sugars Insulin sliding scale Diabetic diet Weakness Physical therapy evaluation once patient stabilized Prolonged time down on the floor, risk for blood clots Obtain bilateral lower extremity ultrasound DVT prophylaxis SCDs
[2018-05-19] MEDS ORDERED: INSULIN GLARGINE SQ SCH (22:15)
[2018-05-19] MEDS: Carvedilol 12.5 MG Tablet PO SCH (22:39)
[2018-05-20] MEDS: Sod Chloride 0.9% Inj 1,000 ML IV.CONT SCH ×3 (01:29→15:34)
[2018-05-20 05:15] LABS: Baso # (Auto) 0.3 th/mm3 (0.0-0.2); Baso % (Auto) 1.8 % (0.0-2.0); Hematocrit 35.3 % (39.0-51.0); Lymph # (Auto) 1.8 th/mm3 (1.0-4.8); Lymph % (Auto) 9.5 % (9.0-44.0); Mean Corpuscular HGB Conc 33.9 % (32.0-36.0); Mean Corpuscular Hemoglobin 30.3 pg (27.0-34.0); Mean Corpuscular Volume 89.3 fL (80.0-100.0); Mean Platelet Volume 9.1 fL (7.0-11.0); Mono # (Auto) 0.8 th/mm3 (0.0-0.9); Neut % (Auto) 84.7 % (16.0-70.0); Platelet Count 131 th/mm3 (150-450); Red Blood Count 3.95 mil/mm3 (4.50-5.90); Red Cell Distribution Width 13.2 % (11.6-17.2); White Blood Count 18.9 th/mm3 (4.0-11.0)
[2018-05-20 05:24] LABS: Chloride 105 meq/L (98-107); Potassium 5.3 meq/L (3.5-5.1); Sodium 135 meq/L (136-145)
[2018-05-20 05:28] LABS: Calcium 8.4 mg/dL (8.5-10.1)
[2018-05-20 05:29] LABS: Albumin 2.4 g/dL (3.4-5.0); Anion Gap 10 meq/L (5-15); Blood Urea Nitrogen 62 mg/dL (7-18); Carbon Dioxide 19.9 meq/L (21.0-32.0); Glucose,Random 306 mg/dL (74-106)
[2018-05-20 05:31] LABS: Alanine Aminotransferase 29 U/L (12-78)
[2018-05-20 05:32] LABS: Aspartate Aminotransferase 41 U/L (15-37); Glomerular Filtration Rate 21 mL/min (>89)
[2018-05-20 05:33] LABS: Total Protein 6.6 g/dL (6.4-8.2)
[2018-05-20 05:34] LABS: Alkaline Phosphatase 80 U/L (45-117); Creatine Kinase 539 U/L (39-308)
[2018-05-20 05:36] LABS: Troponin I 0.55 ng/mL (0.02-0.05)
[2018-05-20 05:40] LABS: Platelet Morphology Normal (Normal); RBC Morphology Normal (Normal)
[2018-05-20] MEDS: Levothyroxine 75 MCG Tablet PO SCH (05:42)
[2018-05-20 05:47] LABS: CKMB Percent 0.8 % (0.0-4.0); Creatine Kinase MB 4.5 ng/mL (0.5-3.6)
[2018-05-20] MEDS: Insulin NovoLOG Aspart Correctional Sugar Inj SQ SCH ×4 (08:30→20:54)
--- NOTE | 2018-05-20 09:25 | US ---
EXAM DATE: 05/20/2018 12:00 AM EDT AGE/SEX: 82 years / Male INDICATIONS: Bilateral leg swelling. CLINICAL DATA: This is the patient's initial encounter. Patient reports that signs and symptoms have been present for 1 day and indicates a pain score of 0/10. MEDICAL/SURGICAL HISTORY: Hypertension. Diabetes. Pacemaker. Renal stent. COMPARISON: No prior exams available for comparison. TECHNIQUE: Venous ultrasound of both lower extremities was performed from the inguinal ligament to t he proximal calf. Real-time, color Doppler and spectral tracing, compression and augmentation techni ques were used. FINDINGS: Right Leg: Normal compression of the deep venous system from the inguinal region to the proximal mildred f. No echogenic clot is seen. Normal response of the venous system to augmentation and respiration. Left Leg: Normal compression of the deep venous system from the inguinal region to the proximal calf . No echogenic clot is seen. Normal response of the venous system to augmentation and respiration. Other: None. CONCLUSION: 1. Negative for deep venous thrombosis Electronically signed by: Clint Rankin MD 05/20/2018 9:23 AM EDT
[2018-05-20 10:20] LABS: Vancomycin,Random 14.2 Comment
[2018-05-20] MEDS: Carvedilol 12.5 MG Tablet PO SCH ×2 (11:15→20:36)
--- NOTE | 2018-05-20 14:42 | P.PN ---
Subjective Interval history: Follow-up rhabdomyolysis. States he is tired. No UTI symptoms. Denies chest pain and shortness of breath. History of cardiomyopathy status post AICD denies history of CAD. Physical Exam Vital signs: Vital Signs 05/19/18 15:30 05/19/18 17:23 05/19/18 17:38 Temperature 98.7 F Pulse Rate 79 78 Respiratory Rate 18 18 Blood Pressure 178/78 H 184/84 H 162/73 H Pulse Oximetry 95 95 05/19/18 18:10 05/19/18 18:33 05/19/18 19:04 Temperature 98.7 F Pulse Rate 102 H 78 74 Respiratory Rate 29 H 20 Blood Pressure 155/74 H 162/67 H Pulse Oximetry 94 L 05/19/18 19:15 05/19/18 20:00 05/20/18 00:00 Temperature 98.4 F Pulse Rate 73 72 70 Respiratory Rate 25 H 51 H Blood Pressure 162/67 H 155/79 H Pulse Oximetry 96 92 L 05/20/18 02:00 05/20/18 03:15 05/20/18 04:00 Temperature Pulse Rate 70 71 72 Respiratory Rate 28 H 48 H Blood Pressure 142/80 H 159/79 H Pulse Oximetry 94 L 92 L 05/20/18 08:00 05/20/18 12:00 Temperature 99.2 F 98.7 F Pulse Rate 65 65 Respiratory Rate 32 H 24 Blood Pressure 157/68 H 155/77 H Pulse Oximetry 95 94 L Intake & Output 05/19/18 05/20/18 05/20/18 18:59 06:59 18:59 Intake Total 1250 / 1250 2664.6 / 2664.6 Output Total 300 / 300 650 / 650 Balance 950 / 950 2013. / 2013. Weight 89.6 kg 88.8 kg Intake: IV 1250 / 1250 2324.6 / 2324.6 NS Inj 1,000 ML @ 70 mls/hr IV. 2023.6 / 2023.6 CONT .[id number] ROJELIO Rx#: [id number] Maxipime Inj 1,000 MG In NS Inj 200 / 200 100 ML @ 200 mls/hr IV.SIG Q12H ROJELIO Rx#:[id number] NS Inj 1,000 ML @ Wide Open IV. 1000 / 1000 SIG BOLUS ROJELIO Rx#:[id number] Vancomycin Inj 1,000 MG In NS 250 / 250 Inj 250 ML @ 200 mls/hr IV.SIG ONCE ONE Rx#:[id number] Vancomycin Inj 500 MG In NS Inj 100 / 100 100 ML @ 200 mls/hr IV.SIG ONCE ONE Rx#:[id number] Oral 340 / 340 Output: Urine 650 / 650 Urine Amount (Catheter) 300 / 300 Straight 300 / 300 Other: Date of Last Bowel Movement 05/19/18 Weight On Admission 89.6 kg Narrative: GENERAL: NAD, A&Ox3 CARDIOVASCULAR: Regular rate and rhythm without murmurs, gallops, or rubs. RESPIRATORY: Breath sounds equal bilaterally. No accessory muscle use. GASTROINTESTINAL: Abdomen soft, non-tender, nondistended. MUSCULOSKELETAL: No cyanosis, or edema. SKIN: Warm and dry. Dry. NEURO: No focal neurological deficits. - Urinary Catheter Management Straight Cath placed during this visit: no Results - Labs CBC & Chem 7: 05/20/18 04:45 05/20/18 04:45 Laboratory Results - last 24 hr 05/19/18 05/19/18 05/19/18 15:22 15:45 15:45 CBC w Diff Slide review pending WBC 22.7 H RBC 4.19 L Hgb 12.4 L Hct 36.4 L MCV 86.9 MCH 29.6 MCHC 34.1 RDW 13.5 Plt Count 166 MPV 8.7 Neut % (Auto) 82.5 H Lymph % (Auto) 8.5 L [place] % (Auto) 6.5 Eos % (Auto) 0.0 Baso % (Auto) 2.5 H Neut # (Auto) 18.7 H Lymph # (Auto) 1.9 [place] # (Auto) 1.5 H Eos # (Auto) 0.0 Baso # (Auto) 0.6 H WBC Differential . Diff Scan Auto diff confirmed Differential Comment . Platelet Estimate Platelet Morphology RBC Morphology Sodium 136 Potassium 5.3 H Chloride 103 Carbon Dioxide 21.1 Anion Gap 12 BUN 58 H Creatinine 3.20 H Estimated GFR 19 L POC Glucose 376 H Random Glucose 377 H Lactic Acid Calcium 9.0 Total Bilirubin 1.0 AST 54 H ALT 29 Alkaline Phosphatase 88 Total Creatine Kinase CK-MB (CK-2) CK-MB (CK-2) % Troponin I 0.41 H B-Natriuretic Peptide Total Protein 7.2 Albumin 2.9 L Urine Color Urine Clarity Urine pH Ur Specific [place] Urine Protein Urine Glucose (UA) Urine Ketones Urine Occult Blood Urine Nitrate Urine Bilirubin Urine Urobilinogen Ur Leukocyte Esterase Urine WBC Urine WBC Clumps Urine Bacteria Micro UA Comment Ur Microscopic Review Urine Culture Comments Random Vancomycin 05/19/18 05/19/18 05/19/18 15:45 16:15 16:55 CBC w Diff WBC RBC Hgb Hct MCV MCH MCHC RDW Plt Count MPV Neut % (Auto) Lymph % (Auto) [place] % (Auto) Eos % (Auto) Baso % (Auto) Neut # (Auto) Lymph # (Auto) [place] # (Auto) Eos # (Auto) Baso # (Auto) WBC Differential Diff Scan Differential Comment Platelet Estimate Platelet Morphology RBC Morphology Sodium Potassium Chloride Carbon Dioxide Anion Gap BUN Creatinine Estimated GFR POC Glucose Random Glucose Lactic Acid 2.3 H Calcium Total Bilirubin AST ALT Alkaline Phosphatase Total Creatine Kinase 1164 H CK-MB (CK-2) 8.4 H CK-MB (CK-2) % 0.7 Troponin I Cancelled B-Natriuretic Peptide 1650 H Total Protein Albumin Urine Color Urine Clarity Urine pH Ur Specific [place] Urine Protein Urine Glucose (UA) Urine Ketones Urine Occult Blood Urine Nitrate Urine Bilirubin Urine Urobilinogen Ur Leukocyte Esterase Urine WBC Urine WBC Clumps Urine Bacteria Micro UA Comment Ur Microscopic Review Urine Culture Comments Random Vancomycin 05/19/18 05/19/18 05/19/18 17:05 17:31 19:05 CBC w Diff WBC RBC Hgb Hct MCV MCH MCHC RDW Plt Count MPV Neut % (Auto) Lymph % (Auto) [place] % (Auto) Eos % (Auto) Baso % (Auto) Neut # (Auto) Lymph # (Auto) [place] # (Auto) Eos # (Auto) Baso # (Auto) WBC Differential Diff Scan Differential Comment Platelet Estimate Platelet Morphology RBC Morphology Sodium Potassium Chloride Carbon Dioxide Anion Gap BUN Creatinine Estimated GFR POC Glucose 395 H Random Glucose Lactic Acid 2.2 H Calcium Total Bilirubin AST ALT Alkaline Phosphatase Total Creatine Kinase CK-MB (CK-2) CK-MB (CK-2) % Troponin I B-Natriuretic Peptide Total Protein Albumin Urine Color Yellow Urine Clarity Clear Urine pH 5.5 Ur Specific [place] 1.025 Urine Protein 300 or greater H Urine Glucose (UA) 250 H Urine Ketones Trace H Urine Occult Blood Large H Urine Nitrate Negative Urine Bilirubin Negative Urine Urobilinogen 0.2 Ur Leukocyte Esterase Small H Urine WBC 21-50 H Urine WBC Clumps Occasional H Urine Bacteria Many H Micro UA Comment Culture indicated Ur Microscopic Review Microscopic reviewed Urine Culture Comments Culture indicated Random Vancomycin 05/19/18 05/20/18 05/20/18 20:23 04:45 04:45 CBC w Diff Slide review pending WBC 18.9 H RBC 3.95 L Hgb 12.0 L Hct 35.3 L MCV 89.3 MCH 30.3 MCHC 33.9 RDW 13.2 Plt Count 131 L MPV 9.1 Neut % (Auto) 84.7 H Lymph % (Auto) 9.5 [place] % (Auto) 4.0 Eos % (Auto) 0.0 Baso % (Auto) 1.8 Neut # (Auto) 16.0 H Lymph # (Auto) 1.8 [place] # (Auto) 0.8 Eos # (Auto) 0.0 Baso # (Auto) 0.3 H WBC Differential . Diff Scan Auto diff confirmed Differential Comment . Platelet Estimate Low L Platelet Morphology Normal RBC Morphology Normal Sodium 135 L Potassium 5.3 H Chloride 105 Carbon Dioxide 19.9 L Anion Gap 10 BUN 62 H Creatinine 2.90 H Estimated GFR 21 L POC Glucose 356 H Random Glucose 306 H Lactic Acid Calcium 8.4 L Total Bilirubin 0.8 AST 41 H ALT 29 Alkaline Phosphatase 80 Total Creatine Kinase 539 H CK-MB (CK-2) 4.5 H CK-MB (CK-2) % 0.8 Troponin I 0.55 H B-Natriuretic Peptide Total Protein 6.6 D Albumin 2.4 L Urine Color Urine Clarity Urine pH Ur Specific [place] Urine Protein Urine Glucose (UA) Urine Ketones Urine Occult Blood Urine Nitrate Urine Bilirubin Urine Urobilinogen Ur Leukocyte Esterase Urine WBC Urine WBC Clumps Urine Bacteria Micro UA Comment Ur Microscopic Review Urine Culture Comments Random Vancomycin 14.2 05/20/18 05/20/18 05/20/18 04:45 05:57 08:02 CBC w Diff WBC RBC Hgb Hct MCV MCH MCHC RDW Plt Count MPV Neut % (Auto) Lymph % (Auto) [place] % (Auto) Eos % (Auto) Baso % (Auto) Neut # (Auto) Lymph # (Auto) [place] # (Auto) Eos # (Auto) Baso # (Auto) WBC Differential Diff Scan Differential Comment Platelet Estimate Platelet Morphology RBC Morphology Sodium Potassium Chloride Carbon Dioxide Anion Gap BUN Creatinine Estimated GFR POC Glucose 325 H 268 H Random Glucose Lactic Acid Calcium Total Bilirubin AST ALT Alkaline Phosphatase Total Creatine Kinase CK-MB (CK-2) CK-MB (CK-2) % Troponin I B-Natriuretic Peptide 1466 H Total Protein Albumin Urine Color Urine Clarity Urine pH Ur Specific [place] Urine Protein Urine Glucose (UA) Urine Ketones Urine Occult Blood Urine Nitrate Urine Bilirubin Urine Urobilinogen Ur Leukocyte Esterase Urine WBC Urine WBC Clumps Urine Bacteria Micro UA Comment Ur Microscopic Review Urine Culture Comments Random Vancomycin 05/20/18 11:11 CBC w Diff WBC RBC Hgb Hct MCV MCH MCHC RDW Plt Count MPV Neut % (Auto) Lymph % (Auto) [place] % (Auto) Eos % (Auto) Baso % (Auto) Neut # (Auto) Lymph # (Auto) [place] # (Auto) Eos # (Auto) Baso # (Auto) WBC Differential Diff Scan Differential Comment Platelet Estimate Platelet Morphology RBC Morphology Sodium Potassium Chloride Carbon Dioxide Anion Gap BUN Creatinine Estimated GFR POC Glucose 270 H Random Glucose Lactic Acid Calcium Total Bilirubin AST ALT Alkaline Phosphatase Total Creatine Kinase CK-MB (CK-2) CK-MB (CK-2) % Troponin I B-Natriuretic Peptide Total Protein Albumin Urine Color Urine Clarity Urine pH Ur Specific [place] Urine Protein Urine Glucose (UA) Urine Ketones Urine Occult Blood Urine Nitrate Urine Bilirubin Urine Urobilinogen Ur Leukocyte Esterase Urine WBC Urine WBC Clumps Urine Bacteria Micro UA Comment Ur Microscopic Review Urine Culture Comments Random Vancomycin Microbiology 05/19/18 16:45 Blood - Peripheral Aerobic Blood Culture - Preliminary No growth in 1 day 05/19/18 16:45 Blood - Peripheral Anaerobic Blood Culture - Preliminary Enterococcus faecalis 05/19/18 17:05 Catheterized Urine Urine Culture - Preliminary gram negative rods 05/19/18 16:55 Blood - Peripheral Aerobic Blood Culture - Preliminary No growth in 1 day 05/19/18 16:55 Blood - Peripheral Anaerobic Blood Culture - Preliminary No growth in 1 day - Imaging Impressions Chest X-Ray 05/19/18 15:48 CONCLUSION: Clear lungs. Head CT 05/19/18 15:49 CONCLUSION: 1. No acute hemorrhage or mass effect. 2. Moderate atrophic changes again noted. . Cervical Spine CT 05/19/18 15:50 CONCLUSION: 1. Moderate to severe degenerative changes are identified without evidence for acute fracture or listhesis. Venous Doppler Study 05/20/18 00:00 CONCLUSION: 1. Negative for deep venous thrombosis - Procedures none Assessment and Plan - Assessment (1) Hyperkalemia Code(s): E87.5 - Hyperkalemia Status: Acute (2) Acute renal failure Code(s): N17.9 - Acute kidney failure, unspecified Status: Acute (3) Elevated troponin Code(s): R74.8 - Abnormal levels of other serum enzymes Status: Acute (4) Elevated brain natriuretic peptide (BNP) level Code(s): R79.89 - Other specified abnormal findings of blood chemistry Status : Acute (5) Rhabdomyolysis Code(s): M62.82 - Rhabdomyolysis Status: Acute (6) Acute UTI Code(s): N39.0 - Urinary tract infection, site not specified Status: Acute (7) CESIA (acute kidney injury) Code(s): N17.9 - Acute kidney failure, unspecified Status: Acute (8) Acute dehydration Code(s): E86.0 - Dehydration Status: Acute - Plan 82-year-old male admitted secondary to severe dehydration and physical metabolic decompensation after being trapped on the floor for 3 days. Acute renal failure history of chronic kidney disease stage IV Severe dehydration Rhabdomyolysis Continue cautious IV hydration Monitor electrolytes Follow renal function Monitor vital signs closely Consider nephrology consult if this is not improving Elevated troponin Elevated BNP Likely related to dehydration and rhabdomyolysis. Patient denies chest pain EKG with ventricular pacing Consider stress test Hyperkalemia Likely related to dehydration IV hydration Monitor potassium levels Monitor on telemetry Hypertension Continue baseline treatment Follow blood pressures Adjust treatments as needed As needed Catapres Urinary tract infection with gram-negative deshawn Enterococcus faecalis bacteremia Severe sepsis Cefepime Vancomycin Follow blood urine cultures Diabetes mellitus type 2, uncontrolled Follow blood sugars Insulin sliding scale restart home medications Diabetic diet Weakness Physical therapy evaluation DVT prophylaxis SCDs and subcu heparin Discharge Planning: Keep patient in ICU
[2018-05-20] MEDS ORDERED: Vancomycin Inj 1 GM/200 ML PIGGYBACK IV.SIG SCH (16:00)
[2018-05-20] MEDS: Montelukast 10 MG Tablet PO SCH ×2 (16:27→19:25)
--- NOTE | 2018-05-20 17:30 | P.PNWCN ---
Wound Care Nurse Consult Description: Wound consult ordered by for wound management. Communicated with: Kaylynn DRIVER, Recommendation: 1. Encourage patient to reposition self every 2 hours for comfort and offloading. 2. Apply thin even layer of Calazime cream to intra gluteal cleft and buttocks. 3. Ensure good moisture control. Additional information: Patient was seen today by newswriter for wound management. Patient alert and oriented resting in bed in no acute distress.Patient was able to independently reposition self to right side for assessment.1 cotton underpad and 2 UltraSorb removed from under patient.Patient incontinent of bladder pericare performed condom cath noted on bed.Guard Manager was able to visualize gluteal folds and surrounding tissue.Patient noted to have intact hypertrophic soft scar tissue to bilateral gluteus all tissue blanchable to touch Calazime applied in thin even layer for moisture protection.
--- NOTE | 2018-05-20 21:12 | ECG ---
Date Performed: 05/19/2018 Time Performed: 22:06:55 PTAGE: 82 years EKG: ELECTRONIC VENTRICULAR PACEMAKER ABNORMAL RHYTHM ECG PREVIOUS TRACING : 04/05/2014 11.19 Since the previous tracing, no significant change noted DOCTOR: Mason Saez Interpretating Date/Time 05/20/2018 21:10:20
[2018-05-20] MEDS: Heparin - SQ 10,000 UNITS/ML Vial SQ SCH (21:49)
[2018-05-21 05:16] LABS: Chloride 109 meq/L (98-107); Potassium 4.6 meq/L (3.5-5.1); Sodium 137 meq/L (136-145)
[2018-05-21 05:20] LABS: Albumin 2.2 g/dL (3.4-5.0); Anion Gap 10 meq/L (5-15); Baso # (Auto) 0.1 th/mm3 (0.0-0.2); Baso % (Auto) 0.4 % (0.0-2.0); Blood Urea Nitrogen 68 mg/dL (7-18); Calcium 8.1 mg/dL (8.5-10.1); Carbon Dioxide 18.2 meq/L (21.0-32.0); Eos # (Auto) 0.1 th/mm3 (0.0-0.4); Eos % (Auto) 0.8 % (0.0-4.0); Glucose,Random 220 mg/dL (74-106); Hematocrit 31.5 % (39.0-51.0); Lymph % (Auto) 12.8 % (9.0-44.0); Magnesium 2.1 mg/dL (1.5-2.5); Mean Corpuscular Hemoglobin 30.6 pg (27.0-34.0); Mean Corpuscular Volume 87.5 fL (80.0-100.0); Mean Platelet Volume 9.8 fL (7.0-11.0); Mono # (Auto) 0.7 th/mm3 (0.0-0.9); Mono % (Auto) 4.6 % (0.0-8.0); Neut % (Auto) 81.4 % (16.0-70.0); Platelet Count 149 th/mm3 (150-450); Red Blood Count 3.61 mil/mm3 (4.50-5.90); Red Cell Distribution Width 13.5 % (11.6-17.2); White Blood Count 15.9 th/mm3 (4.0-11.0)
[2018-05-21 05:23] LABS: Alanine Aminotransferase 38 U/L (12-78); Aspartate Aminotransferase 37 U/L (15-37)
[2018-05-21 05:24] LABS: Glomerular Filtration Rate 21 mL/min (>89)
[2018-05-21 05:25] LABS: Total Protein 6.4 g/dL (6.4-8.2)
[2018-05-21 05:26] LABS: Alkaline Phosphatase 95 U/L (45-117)
[2018-05-21 05:29] LABS: Troponin I 0.38 ng/mL (0.02-0.05)
[2018-05-21] MEDS: Levothyroxine 75 MCG Tablet PO SCH (06:08)
[2018-05-21] MEDS: Heparin - SQ 10,000 UNITS/ML Vial SQ SCH ×3 (06:08→23:58)
[2018-05-21] MEDS: Sod Chloride 0.9% Inj 1,000 ML IV.CONT SCH ×2 (06:11→20:31)
[2018-05-21] MEDS ORDERED: Insulin Detemir Inj 1,000 UNIT/10 ML Vial SQ ONE (06:24)
[2018-05-21] MEDS: Insulin NovoLOG Aspart Correctional Sugar Inj SQ SCH ×4 (08:56→20:34)
[2018-05-21] MEDS: Carvedilol 12.5 MG Tablet PO SCH ×2 (09:44→20:32)
--- NOTE | 2018-05-21 11:39 | P.PN ---
Subjective Interval history: Follow-up UTI and bacteremia. States he is feeling better today. 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 No recent chest pain and shortness of breath. No history of CAD. Physical Exam Vital signs: Vital Signs 05/20/18 12:00 05/20/18 16:00 05/20/18 19:00 Temperature 98.7 F 98.1 F Pulse Rate 65 64 113 H Respiratory Rate 24 21 Blood Pressure 155/77 H 169/84 H Pulse Oximetry 94 L 94 L 05/20/18 20:00 05/20/18 23:59 05/21/18 03:00 Temperature 97.5 F L 98.9 F Pulse Rate 62 61 63 Respiratory Rate 18 19 Blood Pressure 165/81 H 163/73 H Pulse Oximetry 94 L 94 L 05/21/18 04:00 Temperature 98.3 F Pulse Rate 62 Respiratory Rate 30 H Blood Pressure 173/90 H Pulse Oximetry 90 L Intake & Output 05/20/18 05/21/18 05/21/18 18:59 06:59 18:59 Intake Total 1415.4 / 1415.4 1580 / 1580 Output Total 950 / 950 Balance 465.4 / 465.4 1580 / 1580 Weight 91 kg Intake: IV 1075.4 / 1075.4 1100 / 1100 NS Inj 1,000 ML @ 70 mls/hr IV. 975.4 / 975.4 1000 / 1000 CONT .[id number] ROJELIO Rx#: [id number] Maxipime Inj 1,000 MG In NS Inj 100 / 100 100 / 100 100 ML @ 200 mls/hr IV.SIG Q12H ROJELIO Rx#:[id number] Oral 340 / 340 480 / 480 Output: Urine 650 / 650 Urine Amount (Catheter) 300 / 300 Straight 300 / 300 Other: # Urine Diapers 5 Date of Last Bowel Movement 05/19/18 05/21/18 # Bowel Movements 2 Narrative: GENERAL: NAD, A&Ox3 CARDIOVASCULAR: Regular rate and rhythm without murmurs, gallops, or rubs. RESPIRATORY: Breath sounds equal bilaterally. No accessory muscle use. GASTROINTESTINAL: Abdomen soft, non-tender, nondistended. MUSCULOSKELETAL: No cyanosis, or edema. SKIN: Warm and dry. Dry. NEURO: No focal neurological deficits. - Urinary Catheter Management Straight Cath placed during this visit: no Results - Labs CBC & Chem 7: 05/21/18 04:30 05/21/18 04:30 Laboratory Results - last 24 hr 05/19/18 05/20/18 05/20/18 17:05 16:13 20:40 CBC w Diff WBC RBC Hgb Hct MCV MCH MCHC RDW Plt Count MPV Neut % (Auto) Lymph % (Auto) [place] % (Auto) Eos % (Auto) Baso % (Auto) Neut # (Auto) Lymph # (Auto) [place] # (Auto) Eos # (Auto) Baso # (Auto) WBC Differential Diff Scan Differential Comment Sodium Potassium Chloride Carbon Dioxide Anion Gap BUN Creatinine Estimated GFR POC Glucose 298 H 398 H Random Glucose Calcium Magnesium Total Bilirubin AST ALT Alkaline Phosphatase Troponin I Total Protein Albumin Urine Color Yellow Urine Clarity Clear Urine pH 5.5 Ur Specific [place] 1.025 Urine Protein 300 or greater H Urine Glucose (UA) 250 H Urine Ketones Trace H Urine Occult Blood Large H Urine Nitrate Negative Urine Bilirubin Negative Urine Urobilinogen 0.2 Ur Leukocyte Esterase Small H Urine WBC 21-50 H Urine WBC Clumps Occasional H Urine Bacteria Many H Micro UA Comment Culture indicated Ur Microscopic Review Microscopic reviewed Urine Culture Comments Culture indicated 05/21/18 05/21/18 05/21/18 04:30 04:30 06:47 CBC w Diff Slide review pending WBC 15.9 H RBC 3.61 L Hgb 11.0 L Hct 31.5 L MCV 87.5 MCH 30.6 MCHC 35.0 RDW 13.5 Plt Count 149 L MPV 9.8 Neut % (Auto) 81.4 H Lymph % (Auto) 12.8 [place] % (Auto) 4.6 Eos % (Auto) 0.8 Baso % (Auto) 0.4 Neut # (Auto) 13.0 H Lymph # (Auto) 2.0 [place] # (Auto) 0.7 Eos # (Auto) 0.1 Baso # (Auto) 0.1 WBC Differential . Diff Scan Auto diff confirmed Differential Comment . Sodium 137 Potassium 4.6 Chloride 109 H Carbon Dioxide 18.2 L Anion Gap 10 BUN 68 H Creatinine 2.90 H Estimated GFR 21 L POC Glucose 205 H Random Glucose 220 H Calcium 8.1 L Magnesium 2.1 Total Bilirubin 0.6 AST 37 ALT 38 Alkaline Phosphatase 95 Troponin I 0.38 H Total Protein 6.4 Albumin 2.2 L Urine Color Urine Clarity Urine pH Ur Specific [place] Urine Protein Urine Glucose (UA) Urine Ketones Urine Occult Blood Urine Nitrate Urine Bilirubin Urine Urobilinogen Ur Leukocyte Esterase Urine WBC Urine WBC Clumps Urine Bacteria Micro UA Comment Ur Microscopic Review Urine Culture Comments Microbiology 05/19/18 16:55 Blood - Peripheral Aerobic Blood Culture - Preliminary Group D Enterococcus 05/19/18 16:55 Blood - Peripheral Anaerobic Blood Culture - Preliminary No growth in 2 days 05/19/18 16:45 Blood - Peripheral Aerobic Blood Culture - Preliminary gram positive cocci 05/19/18 16:45 Blood - Peripheral Anaerobic Blood Culture - Preliminary Enterococcus faecalis 05/19/18 17:05 Catheterized Urine Urine Culture - Final Escherichia coli - Imaging ITS Impressions Chest X-Ray 05/19/18 15:48 CONCLUSION: Clear lungs. Head CT 05/19/18 15:49 CONCLUSION: 1. No acute hemorrhage or mass effect. 2. Moderate atrophic changes again noted. . Cervical Spine CT 05/19/18 15:50 CONCLUSION: 1. Moderate to severe degenerative changes are identified without evidence for acute fracture or listhesis. Venous Doppler Study 05/20/18 00:00 CONCLUSION: 1. Negative for deep venous thrombosis - Procedures none Assessment and Plan - Assessment (1) Hyperkalemia Code(s): E87.5 - Hyperkalemia Status: Acute (2) Acute renal failure Code(s): N17.9 - Acute kidney failure, unspecified Status: Acute (3) Elevated troponin Code(s): R74.8 - Abnormal levels of other serum enzymes Status: Acute (4) Elevated brain natriuretic peptide (BNP) level Code(s): R79.89 - Other specified abnormal findings of blood chemistry Status : Acute (5) Rhabdomyolysis Code(s): M62.82 - Rhabdomyolysis Status: Acute (6) Acute UTI Code(s): N39.0 - Urinary tract infection, site not specified Status: Acute (7) CESIA (acute kidney injury) Code(s): N17.9 - Acute kidney failure, unspecified Status: Acute (8) Acute dehydration Code(s): E86.0 - Dehydration Status: Acute - Plan 82-year-old male admitted secondary to severe dehydration and physical metabolic decompensation after being trapped on the floor for 3 days. Acute renal failure history of chronic kidney disease stage IV Severe dehydration Rhabdomyolysis Clinically improving continue cautious IV hydration creatinine down to 2.3 Monitor electrolytes Follow renal function Monitor vital signs closely Consider nephrology consult if this is not improving Elevated troponin Elevated BNP Likely related to acute kidney injury, dehydration and rhabdomyolysis. Patient denies chest pain EKG with ventricular pacing Consider stress test Obtain recent cardiac workup from patient's big data engineer Hyperkalemia Likely related to dehydration IV hydration Monitor potassium levels Monitor on telemetry Hypertension Continue baseline treatment Follow blood pressures Adjust treatments as needed As needed Micky Add Norvasc for better control E. coli UTI Bacteremia with group D enterococcus and gram-positive cocci in aerobic bottle and Enterococcus faecalis in anaerobic bottle. Possible Pseudo-bacteremia Severe sepsis Cefepime Vancomycin Follow blood urine cultures Will consult infectious disease and repeat blood cultures today Diabetes mellitus type 2, uncontrolled Follow blood sugars Insulin sliding scale start Levemir 10 units given this morning. Also start 20 units at bedtime Diabetic diet Weakness Physical therapy evaluation, needs rehab Discharge Planning: transfer to med surg
[2018-05-21] MEDS: amLODIPine 5 MG Tablet PO SCH (12:44)
[2018-05-21] MEDS: Montelukast 10 MG Tablet PO SCH (17:52)
--- NOTE | 2018-05-21 20:28 | P.CONID ---
History of Present Illness Service: ID Consult date: 05/21/18 Requesting Physician: Elvin Willson Reason for Consult: E coli UTI and enterococcal bacteremia. Primary Care Provider: No Primary Care Physician Family Provider: No Primary Care Physician History of Present Illness: Pt is a very poor historian, history obtained form the chart and his RN @ b/s 82 yo male with h/o hypertension, coronary artery disease, cardiac arrhythmia, and diabetes mellitus type 2, CHF and sp AICD placement 6 yrs ago. Pt was found down @ home He lives alone. He remained on the floor of his home for 3 days. He was found by his son and was brought into the emergency department. He was diagnosed urinary tract infection and severe dehydration, hyperkalemia, acute renal failure, and rhabdomyolysis. On presentation afebrile, but with WBC of 22 K. UA was abronrmal, cw infection HIs blood clx are growing E.coli in the urine and Enterococcus in 3/4 bottles He was fluid resuscitated Started on broad spectrum abx (vanco+ zosyn) Pt improved, and now with stable afebrile vss Review of Systems All other systems reviewed negative except as stated in HPI, other (poor historian) PMFSH - History History Provided By: Patient - Medical History Medical History: Medical History (Last Reviewed 05/21/18 @ 20:25 by Nayana May MD) Diabetes Hypertension Pacemaker - Surgical History Surgical History: Surgical History (Last Reviewed 05/21/18 @ 20:25 by Nayana May MD) AICD (automatic cardioverter/defibrillator) present History of renal stent - Family History Family History: Family History (Last Updated 05/21/18 @ 20:26 by Nayana May MD) Other Family history non-contributory - Social History I have reviewed the patient's Social History: Yes - Tobacco History Smoking Status: Never smoker - Alcohol History How Often Do You Have a Drink Containing Alcohol: Never - Substance Use History Substance History: No History of Abuse - Travel History Recent Travel in the [place] Within the Last 8 Weeks: No Recent Travel Out of the Country Within the Last 8 Weeks: No - Immunization History Tetanus Immunization: Unsure Hx Influenza Vaccine This Season: Yes Medications and Allergies Active Medications: Active Medications Amlodipine Besylate (Norvasc) 5 mg PO DAILY ROJELIO Last Admin: 10/04/18 12:44 Dose: 5 mg Aspirin (Ecotrin) 325 mg PO DAILY [facility] Last Admin: 05/21/18 12:44 Dose: 325 mg Carvedilol (Coreg) 25 mg PO BID [facility] Last Admin: 05/21/18 09:44 Dose: 25 mg Clonidine HCl (Catapres) 0.1 mg PO Q6H PRN PRN Reason: SYS BP GREATER THAN 160 [facility] Last Admin: 05/21/18 04:54 Dose: 0.1 mg Dextrose (D50w Vial) 50 ml IV.PUSH UNSCH PRN PRN Reason: PER HYPOGLYCEMIA PROTOCOL Glucagon (Glucagon Inj) 1 mg OTHER PRN PRN PRN Reason: for Hypoglycemia Protocol Heparin Sodium (Porcine) (Heparin Inj) 5,000 units SQ Q8HR [facility] Last Admin: 05/21/18 15:41 Dose: 5,000 units Sodium Chloride (Ns Inj) 1,000 mls @ 70 mls/hr IV.CONT .[id number] [facility] Last Infusion: 05/21/18 17:54 Dose: 70 mls/hr Vancomycin HCl 1,500 mg/ (Sodium Chloride) 515 mls @ 250 mls/hr IV.SIG Q48H ROJELIO Cefepime HCl 1,000 mg/ Sodium (Chloride) 100 mls @ 200 mls/hr IV.SIG Q24H ROJELIO Insulin Aspart (Novolog Insulin Correctional Sugar Inj) 0 unit SQ ACHS [facility]; Protocol Last Admin: 05/21/18 17:51 Dose: 3 unit Insulin Detemir (Levemir Inj) 20 unit SQ HS [facility] Insulin Human Regular (Novolin R Inj) 10 units SQ TIDAC [facility] Last Admin: 05/21/18 17:51 Dose: 10 units Levothyroxine Sodium (Synthroid) 75 mcg PO DAILY@0600 [facility] Last Admin: 05/21/18 06:08 Dose: 75 mcg Miscellaneous Information ([facility] Ordered Lab Info) 1 each OTHER ONCE ONE Stop: 05/23/18 20:46 Montelukast Sodium (Singulair) 10 mg PO QPM [facility] Last Admin: 05/21/18 17:52 Dose: 10 mg Ondansetron HCl (Zofran Inj) 4 mg IV.PUSH Q6H PRN PRN Reason: NAUSEA OR VOMITING Pom(Toujeo Max U-300 (/Units/Ml)) 0 each SQ HS [facility] Last Admin: 05/19/18 22:37 Dose: Not Given Pharmacy Profile Note (Vancomycin Consult Pharmacy) 1 each OTHER UNSCH PRN PRN Reason: Pharmacy to dose Tamsulosin HCl (Flomax) 0.4 mg PO DAILY [facility] Last Admin: 05/21/18 09:44 Dose: 0.4 mg Allergies Allergy/AdvReac Type Severity Reaction Status Date / Time amoxicillin Allergy Unknown Hives Verified 05/19/18 15:19 Sulfa (Sulfonamide Allergy Unknown Nausea/Vomi Verified 05/19/18 15:19 Antibiotics) ting Home Medications Medication Instructions Recorded Confirmed Type carvedilol [Coreg] 25 mg PO BID 05/19/18 05/19/18 History cholecalciferol (vitamin D3) 5,000 units PO DAILY 05/19/18 05/19/18 History [Vitamin D3] insulin glargine U-300 conc 20 unit SUBCUT HS 05/19/18 05/19/18 History [Toujeo Max U-300 SoloStar] insulin regular human [Novolin R 10 unit SUBCUT TIDAC 05/19/18 05/19/18 History Regular U-100 Insuln] levothyroxine 75 mcg PO DAILY 05/19/18 05/19/18 History lisinopril 10 mg PO DAILY 05/19/18 05/19/18 History lovastatin 40 mg PO QPM 05/19/18 05/19/18 History montelukast [Singulair] 10 mg PO QPM 05/19/18 05/19/18 History omega 2-ezc-tlj-fish oil [Fish Oil] 1,200 mg PO DAILY 05/19/18 05/19/18 History tamsulosin 0.4 mg PO DAILY 05/19/18 05/19/18 History Exam Vital signs: Vital Signs 05/20/18 23:59 05/21/18 03:00 05/21/18 04:00 Temperature 98.9 F 98.3 F Pulse Rate 61 63 62 Respiratory Rate 19 30 H Blood Pressure 163/73 H 173/90 H Pulse Oximetry 94 L 90 L 05/21/18 06:07 05/21/18 08:00 05/21/18 08:24 Temperature 98.1 F Pulse Rate 64 72 Respiratory Rate 31 H 28 H Blood Pressure 160/74 H 168/78 H Pulse Oximetry 92 L 92 L 05/21/18 11:48 05/21/18 11:59 05/21/18 12:24 Temperature 97.9 F Pulse Rate 64 62 Respiratory Rate 20 19 Blood Pressure 148/71 H 151/71 H Pulse Oximetry 95 94 L 05/21/18 16:00 05/21/18 16:24 05/21/18 20:00 Temperature 97.9 F 98.3 F Pulse Rate 60 63 Respiratory Rate 18 22 Blood Pressure 146/65 H 158/73 H Pulse Oximetry 95 95 Intake & Output 05/21/18 05/21/18 05/22/18 06:59 18:59 06:59 Intake Total 1580 / 1580 1546 / 1546 Output Total 775 / 775 Balance 1580 / 1580 771 / 771 Weight 91 kg Intake: IV 1100 / 1100 826 / 826 NS Inj 1,000 ML @ 70 mls/hr IV. 1000 / 1000 826 / 826 CONT .[id number] ROJELIO Rx#: [id number] Maxipime Inj 1,000 MG In NS Inj 100 / 100 100 ML @ 200 mls/hr IV.SIG Q12H ROJELIO Rx#:[id number] Oral 480 / 480 720 / 720 Output: Urine 775 / 775 Other: # Urine Diapers 5 Date of Last Bowel Movement 05/21/18 05/21/18 # Bowel Movements 2 - Constitutional no acute distress, obese - Routine HEENT Exam Head: Present: normocephalic, atraumatic Eye: Present: EOMI, PERRL ENT: Present: mucous membranes moist. Absent: dentition normal (poor dentition) - Routine Neck Exam Present: supple, full ROM. Absent: JVD - Routine Chest/Breast/Axilla Exam Chest wall: Present: pacemaker (AICD on L chest in place, well healed scar, no redness, no sweelling) - Routine Respiratory Exam Present: CTA bilaterally. Absent: accessory muscle use, rales, respiratory distress, rhonchi - Routine Cardiovascular Exam Present: RRR, S1, S2. Absent: murmur, gallop, rubs - Routine Abdominal Exam Present: soft, normoactive bowel sounds. Absent: tenderness, distended - Routine Extremities Exam Present: full ROM. Absent: cyanosis, clubbing, edema - Routine Skin Exam Present: warm. Absent: intact, rash - Routine Neurological Exam Present: alert, oriented X3, CN II-XII intact, moving all extremities, hearing grossly intact, normal speech - Routine Psychiatric Exam Present: normal affect, cooperative Results - Labs CBC & Chem 7: 05/21/18 04:30 05/21/18 04:30 Labs: Laboratory Results - last 24 hr 05/20/18 05/21/18 05/21/18 20:40 04:30 04:30 CBC w Diff Slide review pending WBC 15.9 H RBC 3.61 L Hgb 11.0 L Hct 31.5 L MCV 87.5 MCH 30.6 MCHC 35.0 RDW 13.5 Plt Count 149 L MPV 9.8 Neut % (Auto) 81.4 H Lymph % (Auto) 12.8 [place] % (Auto) 4.6 Eos % (Auto) 0.8 Baso % (Auto) 0.4 Neut # (Auto) 13.0 H Lymph # (Auto) 2.0 [place] # (Auto) 0.7 Eos # (Auto) 0.1 Baso # (Auto) 0.1 WBC Differential . Diff Scan Auto diff confirmed Differential Comment . Sodium 137 Potassium 4.6 Chloride 109 H Carbon Dioxide 18.2 L Anion Gap 10 BUN 68 H Creatinine 2.90 H Estimated GFR 21 L POC Glucose 398 H Random Glucose 220 H Calcium 8.1 L Magnesium 2.1 Total Bilirubin 0.6 AST 37 ALT 38 Alkaline Phosphatase 95 Troponin I 0.38 H Total Protein 6.4 Albumin 2.2 L 05/21/18 05/21/18 05/21/18 06:47 11:30 16:15 CBC w Diff WBC RBC Hgb Hct MCV MCH MCHC RDW Plt Count MPV Neut % (Auto) Lymph % (Auto) V[place] % (Auto) Eos % (Auto) Baso % (Auto) Neut # (Auto) Lymph # (Auto) [place] # (Auto) Eos # (Auto) Baso # (Auto) WBC Differential Diff Scan Differential Comment Sodium Potassium Chloride Carbon Dioxide Anion Gap BUN Creatinine Estimated GFR POC Glucose 205 H 232 H 235 H Random Glucose Calcium Magnesium Total Bilirubin AST ALT Alkaline Phosphatase Troponin I Total Protein Albumin - Imaging Chest X-Ray 05/19/18 15:48 CONCLUSION: Clear lungs. Head CT 05/19/18 15:49 CONCLUSION: 1. No acute hemorrhage or mass effect. 2. Moderate atrophic changes again noted. . Cervical Spine CT 05/19/18 15:50 CONCLUSION: 1. Moderate to severe degenerative changes are identified without evidence for acute fracture or listhesis. Venous Doppler Study 05/20/18 00:00 CONCLUSION: 1. Negative for deep venous thrombosis Assessment and Plan - Plan Found down Acute rhabdomylisis E.coli UTI ARF Enterococcal high grade bacteremia in AICD settings - r/o pacemaker lead endocarditisi Multiple med problems (HTN, CHF CAD, DM) cont currently zosyn , vanco] repeat BC 2 D echo will likely need KATT matt RN
--- NOTE | 2018-05-21 20:29 | P.PNADD ---
Addendum to Inpatient Note Additional information: pt seen , chart reviewed full note to follow stevie matson RN @ b/[facility]
[2018-05-21] MEDS: Insulin Detemir Inj 1,000 UNIT/10 ML Vial SQ SCH (20:32)
[2018-05-21] MEDS: Vancomycin Inj 1,500 MG in Sodium Chlor 0.9% Inj 500 ML IV.SIG SCH (20:34)
[2018-05-22 06:33] LABS: Potassium 3.9 meq/L (3.5-5.1)
[2018-05-22 06:35] LABS: Calcium 8.3 mg/dL (8.5-10.1)
[2018-05-22 06:36] LABS: Carbon Dioxide 17.1 meq/L (21.0-32.0)
[2018-05-22] MEDS: Levothyroxine 75 MCG Tablet PO SCH (06:44)
[2018-05-22] MEDS: Heparin - SQ 10,000 UNITS/ML Vial SQ SCH ×3 (06:44→21:38)
[2018-05-22 07:02] LABS: Magnesium 2.1 mg/dL (1.5-2.5)
[2018-05-22] MEDS: Insulin NovoLOG Aspart Correctional Sugar Inj SQ SCH ×4 (07:44→21:42)
[2018-05-22] MEDS: amLODIPine 5 MG Tablet PO SCH (09:40)
[2018-05-22] MEDS: Carvedilol 12.5 MG Tablet PO SCH ×2 (09:40→21:38)
--- NOTE | 2018-05-22 10:33 | ECHRPT ---
Indication: Sepsis and Possible Endocarditis CONCLUSIONS Mildly dilated left ventricle. Wall thickness is measured at the upper limits of normal. The left ventricular systolic function is severely reduced with estimated ejection fraction of 25%. Global hypokinesis possibly more pronounced in the mid to basal inferior region. Moderate mitral annular calcification is present. No definite evidence for endocarditis. BP: / HR: Rhythm: MEASUREMENTS (Male / Female) Normal Values Technical Quality:Fair 2D ECHO LV Diastolic Diameter PLAX 4.6 cm 4.2 - 5.9 / 3.9 - 5.3 cm LV Systolic Diameter PLAX 3.7 cm IVS Diastolic Thickness 1.1 cm 0.6 - 1.0 / 0.6 - 0.9 cm LVPW Diastolic Thickness 1.1 cm 0.6 - 1.0 / 0.6 - 0.9 cm LV Relative Wall Thickness 0.5 Aortic Root Diameter 3.0 cm LA Systolic Diameter LX 2.9 cm 3.0 - 4.0 / 2.7 - 3.8 cm FINDINGS LEFT VENTRICLE Mildly dilated left ventricle. Wall thickness is measured at the upper limits of normal. The left ventricular systolic function is severely reduced with estimated ejection fraction of 25%. Global hypokinesis possibly more pronounced in the mid to basal inferior region. RIGHT VENTRICLE A pacemaker wire is noted. Normal right ventricular size and systolic function. LEFT ATRIUM The left atrial size is normal. RIGHT ATRIUM The right atrial size is normal. ATRIAL SEPTUM Normal atrial septal thickness without atrial level shunting by limited color doppler interrogation. AORTA The aortic root and proximal ascending aorta are normal in size on limited imaging. MITRAL VALVE Moderate mitral annular calcification is present. AORTIC VALVE Trileaflet aortic valve. Minimal leaflet sclerosis. TRICUSPID VALVE Structurally normal tricuspid valve. No tricuspid valve stenosis or regurgitation. PULMONARY VALVE The pulmonary valve is not well visualized. PERICARDIUM No pericardial effusion. Albino Benoit MD (Electronically Signed) Final Date:22 May 2018 10:32
[2018-05-22] MEDS: Sod Chloride 0.9% Inj 1,000 ML IV.CONT SCH (10:55)
--- NOTE | 2018-05-22 11:18 | P.PN ---
Subjective Interval history: Follow-up bacteremia and diabetes mellitus. Patient had difficulty breathing last night improved today still on room air. Also was hypoglycemic states noncompliant with insulin at home. Physical Exam Vital signs: Vital Signs 05/21/18 11:48 05/21/18 11:59 05/21/18 12:24 Temperature 97.9 F Pulse Rate 64 62 Respiratory Rate 20 19 Blood Pressure 148/71 H 151/71 H Pulse Oximetry 95 94 L 05/21/18 16:00 05/21/18 16:24 05/21/18 20:00 Temperature 97.9 F 98.3 F Pulse Rate 60 63 Respiratory Rate 18 22 Blood Pressure 146/65 H 158/73 H Pulse Oximetry 95 95 05/22/18 00:00 05/22/18 04:00 05/22/18 08:00 Temperature 97.9 F 96.1 F L 97.9 F Pulse Rate 60 60 112 H Respiratory Rate 18 20 17 Blood Pressure 167/70 H 157/69 H 127/84 Pulse Oximetry 94 L 95 95 05/22/18 10:10 Temperature Pulse Rate Respiratory Rate 18 Blood Pressure Pulse Oximetry Intake & Output 05/21/18 05/22/18 05/22/18 18:59 06:59 18:59 Intake Total 1546 / 1546 909 / 909 1000 / 1000 Output Total 775 / 775 Balance 771 / 771 909 / 909 1000 / 1000 Weight 94 kg Intake: IV 826 / 826 789 / 789 1000 / 1000 NS Inj 1,000 ML @ 70 mls/hr IV. 826 / 826 174 / 174 1000 / 1000 CONT .[id number] ROJELIO Rx#: [id number] Maxipime Inj 1,000 MG In NS Inj 100 / 100 100 ML @ 200 mls/hr IV.SIG Q24H ROJELIO Rx#:[id number] Vancomycin Inj 1,500 MG In NS 515 / 515 Inj 500 ML @ 250 mls/hr IV.SIG Q48H ROJELIO Rx#:[id number] Oral 720 / 720 120 / 120 Output: Urine 775 / 775 Other: # Voids 2 Date of Last Bowel Movement 05/21/18 Narrative: GENERAL: NAD, A&Ox3 CARDIOVASCULAR: Regular rate and rhythm without murmurs, gallops, or rubs. RESPIRATORY: Breath sounds equal bilaterally. No accessory muscle use. Mild expiratory wheezes GASTROINTESTINAL: Abdomen soft, non-tender, nondistended. MUSCULOSKELETAL: No cyanosis, or edema. SKIN: Warm and dry. Dry. NEURO: No focal neurological deficits. - Urinary Catheter Management Straight Cath placed during this visit: no Results - Labs CBC & Chem 7: 05/21/18 04:30 05/22/18 05:45 Laboratory Results - last 24 hr 05/21/18 05/21/18 05/21/18 11:30 16:15 20:27 Sodium Potassium Chloride Carbon Dioxide Anion Gap BUN Creatinine Estimated GFR POC Glucose 232 H 235 H 185 H Random Glucose Calcium Magnesium 05/22/18 05/22/18 05/22/18 05:45 07:30 07:41 Sodium 141 Potassium 3.9 Chloride 114 H Carbon Dioxide 17.1 L Anion Gap 10 BUN 70 H Creatinine 2.70 H Estimated GFR 23 L POC Glucose 59 L 65 L Random Glucose 54 L D Calcium 8.3 L Magnesium 2.1 05/22/18 05/22/18 07:50 08:01 Sodium Potassium Chloride Carbon Dioxide Anion Gap BUN Creatinine Estimated GFR POC Glucose 69 75 Random Glucose Calcium Magnesium Microbiology 05/21/18 06:35 Blood - Peripheral Aerobic Blood Culture - Preliminary No growth in 1 day 05/21/18 06:35 Blood - Peripheral Anaerobic Blood Culture - Preliminary No growth in 1 day 05/21/18 06:25 Blood - Peripheral Aerobic Blood Culture - Preliminary No growth in 1 day 05/21/18 06:25 Blood - Peripheral Anaerobic Blood Culture - Preliminary No growth in 1 day 05/19/18 16:55 Blood - Peripheral Aerobic Blood Culture - Final Enterococcus faecalis 05/19/18 16:55 Blood - Peripheral Anaerobic Blood Culture - Preliminary No growth in 3 days 05/19/18 16:45 Blood - Peripheral Aerobic Blood Culture - Final Enterococcus faecalis 05/19/18 16:45 Blood - Peripheral Anaerobic Blood Culture - Final Enterococcus faecalis 05/19/18 17:05 Catheterized Urine Urine Culture - Final Escherichia coli - Imaging ITS Impressions Chest X-Ray 05/19/18 15:48 CONCLUSION: Clear lungs. Head CT 05/19/18 15:49 CONCLUSION: 1. No acute hemorrhage or mass effect. 2. Moderate atrophic changes again noted. . Cervical Spine CT 05/19/18 15:50 CONCLUSION: 1. Moderate to severe degenerative changes are identified without evidence for acute fracture or listhesis. Venous Doppler Study 05/20/18 00:00 CONCLUSION: 1. Negative for deep venous thrombosis - Procedures none Assessment and Plan - Assessment (1) Hyperkalemia Code(s): E87.5 - Hyperkalemia Status: Acute (2) Acute renal failure Code(s): N17.9 - Acute kidney failure, unspecified Status: Acute (3) Elevated troponin Code(s): R74.8 - Abnormal levels of other serum enzymes Status: Acute (4) Elevated brain natriuretic peptide (BNP) level Code(s): R79.89 - Other specified abnormal findings of blood chemistry Status : Acute (5) Rhabdomyolysis Code(s): M62.82 - Rhabdomyolysis Status: Acute (6) Acute UTI Code(s): N39.0 - Urinary tract infection, site not specified Status: Acute (7) CESIA (acute kidney injury) Code(s): N17.9 - Acute kidney failure, unspecified Status: Acute (8) Acute dehydration Code(s): E86.0 - Dehydration Status: Acute - Plan 82-year-old male admitted secondary to severe dehydration and physical metabolic decompensation after being trapped on the floor for 3 days. E. coli UTI High-grade enterococcal bacteremia rule out endocarditis Severe sepsis Echocardiogram negative for endocarditis. Will order KATT consult patient's cement side laster Discussed with infectious disease, switch cefepime to Rocephin and continue vancomycin Follow blood urine cultures Acute renal failure history of chronic kidney disease stage IV Severe dehydration Rhabdomyolysis Clinically improving continue cautious IV hydration creatinine down to 2.7 baseline 2.3. Because of expiratory wheezes will discontinue IV fluids for now. Incentive spirometry and albuterol as needed Monitor electrolytes Follow renal function Monitor vital signs closely Consider nephrology consult if this is not improving Elevated troponin Elevated BNP Likely related to acute kidney injury, dehydration and rhabdomyolysis. Patient denies chest pain EKG with ventricular pacing Consider stress test Obtain recent cardiac workup from patient's cement side laster EF 25% status post AICD unable to start ANNIE or arm secondary to acute kidney injury continue beta- randa Hyperkalemia Likely related to dehydration IV hydration Monitor potassium levels Monitor on telemetry Hypertension Continue baseline treatment Follow blood pressures Adjust treatments as needed As needed Catapres Add Norvasc for better control Diabetes mellitus type 2, labile Follow blood sugars Insulin sliding scale continue Levemir 20 units at bedtime and discontinue preprandial insulin. Hypoglycemia protocol Diabetic diet Weakness Physical therapy evaluation, needs rehab Discharge Planning: Needs IV antibiotic pending clearance of bacteremia
--- NOTE | 2018-05-22 11:46 | P.PNID ---
Subjective Remarks: feels OK afebrile repeat clx P Grew ent fecalis sparrow S with gent synergy S Antibiotics: cefepime vanco Allergies/Adverse Reactions: Allergies amoxicillin Allergy (Unknown, Verified 05/19/18 15:19) Hives Sulfa (Sulfonamide Antibiotics) Allergy (Unknown, Verified 05/19/18 15:19) Nausea/Vomiting Objective Vital Signs 05/21/18 11:48 05/21/18 11:59 05/21/18 12:24 Temperature 97.9 F Pulse Rate 64 62 Respiratory Rate 20 19 Blood Pressure 148/71 H 151/71 H Pulse Oximetry 95 94 L 05/21/18 16:00 05/21/18 16:24 05/21/18 20:00 Temperature 97.9 F 98.3 F Pulse Rate 60 63 Respiratory Rate 18 22 Blood Pressure 146/65 H 158/73 H Pulse Oximetry 95 95 05/22/18 00:00 05/22/18 04:00 05/22/18 08:00 Temperature 97.9 F 96.1 F L 97.9 F Pulse Rate 60 60 112 H Respiratory Rate 18 20 17 Blood Pressure 167/70 H 157/69 H 127/84 Pulse Oximetry 94 L 95 95 05/22/18 10:10 Temperature Pulse Rate Respiratory Rate 18 Blood Pressure Pulse Oximetry Intake & Output 05/21/18 05/22/18 05/22/18 18:59 06:59 18:59 Intake Total 1546 / 1546 909 / 909 1100 / 1100 Output Total 775 / 775 Balance 771 / 771 909 / 909 1100 / 1100 Weight 94 kg Intake: IV 826 / 826 789 / 789 1100 / 1100 NS Inj 1,000 ML @ 70 mls/hr IV. 826 / 826 174 / 174 1100 / 1100 CONT .[id number] ROJELIO Rx#: [id number] Maxipime Inj 1,000 MG In NS Inj 100 / 100 100 ML @ 200 mls/hr IV.SIG Q24H ROJELIO Rx#:[id number] Vancomycin Inj 1,500 MG In NS 515 / 515 Inj 500 ML @ 250 mls/hr IV.SIG Q48H ROJELIO Rx#:[id number] Oral 720 / 720 120 / 120 Output: Urine 775 / 775 Other: # Voids 2 Date of Last Bowel Movement 05/21/18 05/21/18 06:35 Blood - Peripheral Aerobic Blood Culture - Preliminary No growth in 1 day 05/21/18 06:35 Blood - Peripheral Anaerobic Blood Culture - Preliminary No growth in 1 day 05/21/18 06:25 Blood - Peripheral Aerobic Blood Culture - Preliminary No growth in 1 day 05/21/18 06:25 Blood - Peripheral Anaerobic Blood Culture - Preliminary No growth in 1 day 05/19/18 16:55 Blood - Peripheral Aerobic Blood Culture - Final Enterococcus faecalis 05/19/18 16:55 Blood - Peripheral Anaerobic Blood Culture - Preliminary No growth in 3 days 05/19/18 16:45 Blood - Peripheral Aerobic Blood Culture - Final Enterococcus faecalis 05/19/18 16:45 Blood - Peripheral Anaerobic Blood Culture - Final Enterococcus faecalis 05/19/18 17:05 Catheterized Urine Urine Culture - Final Escherichia coli Lab - Hematology Results 05/21/18 04:30 CBC w Diff Slide review pending WBC 15.9 H RBC 3.61 L Hgb 11.0 L Hct 31.5 L MCV 87.5 MCH 30.6 MCHC 35.0 RDW 13.5 Plt Count 149 L MPV 9.8 Neut % (Auto) 81.4 H Lymph % (Auto) 12.8 [place] % (Auto) 4.6 Eos % (Auto) 0.8 Baso % (Auto) 0.4 Neut # (Auto) 13.0 H Lymph # (Auto) 2.0 [place] # (Auto) 0.7 Eos # (Auto) 0.1 Baso # (Auto) 0.1 WBC Differential . Diff Scan Auto diff confirmed Differential Comment . Lab - Chemistry Results 05/20/18 05/20/18 05/21/18 16:13 20:40 04:30 Sodium 137 Potassium 4.6 Chloride 109 H Carbon Dioxide 18.2 L Anion Gap 10 BUN 68 H Creatinine 2.90 H Estimated GFR 21 L POC Glucose 298 H 398 H Random Glucose 220 H Calcium 8.1 L Magnesium 2.1 Total Bilirubin 0.6 AST 37 ALT 38 Alkaline Phosphatase 95 Troponin I 0.38 H Total Protein 6.4 Albumin 2.2 L 05/21/18 05/21/18 05/21/18 06:47 11:30 16:15 Sodium Potassium Chloride Carbon Dioxide Anion Gap BUN Creatinine Estimated GFR POC Glucose 205 H 232 H 235 H Random Glucose Calcium Magnesium Total Bilirubin AST ALT Alkaline Phosphatase Troponin I Total Protein Albumin 05/21/18 05/22/18 05/22/18 20:27 05:45 07:30 Sodium 141 Potassium 3.9 Chloride 114 H Carbon Dioxide 17.1 L Anion Gap 10 BUN 70 H Creatinine 2.70 H Estimated GFR 23 L POC Glucose 185 H 59 L Random Glucose 54 L D Calcium 8.3 L Magnesium 2.1 Total Bilirubin AST ALT Alkaline Phosphatase Troponin I Total Protein Albumin 05/22/18 05/22/18 05/22/18 07:41 07:50 08:01 Sodium Potassium Chloride Carbon Dioxide Anion Gap BUN Creatinine Estimated GFR POC Glucose 65 L 69 75 Random Glucose Calcium Magnesium Total Bilirubin AST ALT Alkaline Phosphatase Troponin I Total Protein Albumin 05/22/18 11:36 Sodium Potassium Chloride Carbon Dioxide Anion Gap BUN Creatinine Estimated GFR POC Glucose 253 H Random Glucose Calcium Magnesium Total Bilirubin AST ALT Alkaline Phosphatase Troponin I Total Protein Albumin Imaging: ITS Impressions Chest X-Ray 05/19/18 15:48 CONCLUSION: Clear lungs. Head CT 05/19/18 15:49 CONCLUSION: 1. No acute hemorrhage or mass effect. 2. Moderate atrophic changes again noted. . Cervical Spine CT 05/19/18 15:50 CONCLUSION: 1. Moderate to severe degenerative changes are identified without evidence for acute fracture or listhesis. Venous Doppler Study 05/20/18 00:00 CONCLUSION: 1. Negative for deep venous thrombosis Physical Exam: GENERAL: NAD SKIN: Warm and dry. no rash HEAD: Atraumatic. Normocephalic. EYES: Pupils equal and round. No scleral icterus. No injection or drainage. ENT: No nasal bleeding or discharge. Mucous membranes pink and moist. NECK: Trachea midline. No JVD. CARDIOVASCULAR: Regular rate and rhythm. + L sided AICD, no skin changes over it RESPIRATORY: No accessory muscle use. Clear to auscultation. Breath sounds equal bilaterally. GASTROINTESTINAL: Abdomen soft, non-tender, nondistended. Hepatic and splenic margins not palpable. MUSCULOSKELETAL: Extremities without clubbing, cyanosis, or edema. No obvious deformities. NEUROLOGICAL: Awake and alert. No obvious cranial nerve deficits. Motor grossly within normal limits. Five out of 5 muscle strength in the arms and legs. Normal speech. PSYCHIATRIC: Appropriate mood and affect; insight and judgment normal. Assessment and Plan - Plan Found down Acute rhabdomylisis E.coli UTI, sparrow S including ampicillin ARF Enterococcal high grade bacteremia in AICD settings - r/o pacemaker lead endocarditisi Multiple med problems (HTN, CHF CAD, DM) Amoxicillin allergy (hives reported) change cefepime to CFTX cont vancomycin fu repeat BC 2 D echo will likely need KATT dw Dr Willson
[2018-05-22] MEDS: Montelukast 10 MG Tablet PO SCH (17:02)
[2018-05-22] MEDS: Insulin Detemir Inj 1,000 UNIT/10 ML Vial SQ SCH (21:41)
[2018-05-23] MEDS: Heparin - SQ 10,000 UNITS/ML Vial SQ SCH ×3 (05:44→21:07)
[2018-05-23] MEDS: Levothyroxine 75 MCG Tablet PO SCH (05:46)
[2018-05-23 08:33] LABS: Potassium 4.5 meq/L (3.5-5.1)
[2018-05-23 08:41] LABS: Calcium 8.6 mg/dL (8.5-10.1); Carbon Dioxide 17.3 meq/L (21.0-32.0)
[2018-05-23 08:42] LABS: Baso # (Auto) 0.1 th/mm3 (0.0-0.2); Baso % (Auto) 0.8 % (0.0-2.0); Eos # (Auto) 0.4 th/mm3 (0.0-0.4); Eos % (Auto) 4.4 % (0.0-4.0); Hematocrit 33.6 % (39.0-51.0); Hemoglobin 11.6 gm/dL (13.0-17.0); Lymph # (Auto) 2.3 th/mm3 (1.0-4.8); Lymph % (Auto) 23.5 % (9.0-44.0); Mean Corpuscular HGB Conc 34.5 % (32.0-36.0); Mean Corpuscular Volume 87.2 fL (80.0-100.0); Mean Platelet Volume 9.7 fL (7.0-11.0); Mono # (Auto) 1.1 th/mm3 (0.0-0.9); Neut # (Auto) 6.1 th/mm3 (1.8-7.7); Neut % (Auto) 60.3 % (16.0-70.0); Platelet Count 169 th/mm3 (150-450); Red Blood Count 3.85 mil/mm3 (4.50-5.90); Red Cell Distribution Width 13.9 % (11.6-17.2)
[2018-05-23 08:45] LABS: Magnesium 2.2 mg/dL (1.5-2.5)
[2018-05-23] MEDS: Carvedilol 12.5 MG Tablet PO SCH ×2 (10:59→21:08)
[2018-05-23] MEDS: Insulin NovoLOG Aspart Correctional Sugar Inj SQ SCH ×4 (10:59→21:05)
[2018-05-23] MEDS: amLODIPine 5 MG Tablet PO SCH (10:59)
--- NOTE | 2018-05-23 14:55 | P.PN ---
Subjective Interval history: Follow-up sepsis. States he is doing okay denies shortness of breath currently on room air. He is voiding. Physical Exam Vital signs: Vital Signs 05/22/18 16:00 05/22/18 20:00 05/22/18 22:00 Temperature 97.0 F L 98.8 F Pulse Rate 66 65 63 Respiratory Rate 18 18 Blood Pressure 183/80 H 163/72 H Pulse Oximetry 95 94 L 05/22/18 23:54 05/23/18 04:25 05/23/18 08:00 Temperature 98.6 F 97.8 F Pulse Rate 64 60 63 Respiratory Rate 18 20 19 Blood Pressure 168/74 H 165/73 H 177/79 H Pulse Oximetry 94 L 95 94 L 05/23/18 12:00 05/23/18 14:11 Temperature 97.6 F Pulse Rate 56 L Respiratory Rate 19 19 Blood Pressure 145/67 H Pulse Oximetry 95 Intake & Output 05/22/18 05/23/18 05/23/18 18:59 06:59 18:59 Intake Total 1200 / 1200 240 / 240 Output Total 1250 / 1250 Balance 1200 / 1200 -1010 / -1010 Weight 94.2 kg Intake: IV 1200 / 1200 NS Inj 1,000 ML @ 70 mls/hr IV. 1100 / 1100 CONT .[id number] ROJELIO Rx#: [id number] Rocephin Inj 2,000 MG In NS Inj 100 / 100 100 ML @ 200 mls/hr IV.SIG Q24H ROJELIO Rx#:[id number] Oral 240 / 240 Output: Urine 1250 / 1250 Other: Date of Last Bowel Movement 05/22/18 05/22/18 05/22/18 # Bowel Movements 1 Narrative: GENERAL: NAD, A&Ox3 CARDIOVASCULAR: Regular rate and rhythm without murmurs, gallops, or rubs. RESPIRATORY: Breath sounds equal bilaterally. No accessory muscle use. Mild expiratory wheezes GASTROINTESTINAL: Abdomen soft, non-tender, nondistended. MUSCULOSKELETAL: No cyanosis, or edema. SKIN: Warm and dry. Dry. NEURO: No focal neurological deficits. - Urinary Catheter Management Straight Cath placed during this visit: no Results - Labs CBC & Chem 7: 05/23/18 07:40 05/23/18 07:40 Laboratory Results - last 24 hr 10/01/0205/22/18 05/22/18 05:45 16:08 21:21 CBC w Diff WBC RBC Hgb Hct MCV MCH MCHC RDW Plt Count MPV Neut % (Auto) Lymph % (Auto) [place] % (Auto) Eos % (Auto) Baso % (Auto) Neut # (Auto) Lymph # (Auto) [place] # (Auto) Eos # (Auto) Baso # (Auto) WBC Differential Differential Comment Sodium Potassium Chloride Carbon Dioxide Anion Gap BUN Creatinine Estimated GFR POC Glucose 279 H 220 H Random Glucose Hemoglobin A1c 9.0 H Calcium Magnesium 05/23/18 05/23/18 05/23/18 07:22 07:40 07:40 CBC w Diff Auto diff final WBC 10.0 RBC 3.85 L Hgb 11.6 L Hct 33.6 L MCV 87.2 MCH 30.0 MCHC 34.5 RDW 13.9 Plt Count 169 MPV 9.7 Neut % (Auto) 60.3 Lymph % (Auto) 23.5 [place] % (Auto) 11.0 H Eos % (Auto) 4.4 H Baso % (Auto) 0.8 Neut # (Auto) 6.1 Lymph # (Auto) 2.3 [place] # (Auto) 1.1 H Eos # (Auto) 0.4 Baso # (Auto) 0.1 WBC Differential . Differential Comment . Sodium 140 Potassium 4.5 Chloride 112 H Carbon Dioxide 17.3 L Anion Gap 11 BUN 71 H Creatinine 2.70 H Estimated GFR 23 L POC Glucose 139 H Random Glucose 158 H D Hemoglobin A1c Calcium 8.6 Magnesium 2.2 05/23/18 11:25 CBC w Diff WBC RBC Hgb Hct MCV MCH MCHC RDW Plt Count MPV Neut % (Auto) Lymph % (Auto) [place] % (Auto) Eos % (Auto) Baso % (Auto) Neut # (Auto) Lymph # (Auto) [place] # (Auto) Eos # (Auto) Baso # (Auto) WBC Differential Differential Comment Sodium Potassium Chloride Carbon Dioxide Anion Gap BUN Creatinine Estimated GFR POC Glucose 173 H Random Glucose Hemoglobin A1c Calcium Magnesium Microbiology 05/21/18 06:35 Blood - Peripheral Aerobic Blood Culture - Preliminary No growth in 2 days 05/21/18 06:35 Blood - Peripheral Anaerobic Blood Culture - Preliminary No growth in 2 days 05/21/18 06:25 Blood - Peripheral Aerobic Blood Culture - Preliminary No growth in 2 days 05/21/18 06:25 Blood - Peripheral Anaerobic Blood Culture - Preliminary No growth in 2 days 05/19/18 16:55 Blood - Peripheral Aerobic Blood Culture - Final Enterococcus faecalis 05/19/18 16:55 Blood - Peripheral Anaerobic Blood Culture - Preliminary No growth in 4 days - Procedures none Assessment and Plan - Assessment (1) Hyperkalemia Code(s): E87.5 - Hyperkalemia Status: Acute (2) Acute renal failure Code(s): N17.9 - Acute kidney failure, unspecified Status: Acute (3) Elevated troponin Code(s): R74.8 - Abnormal levels of other serum enzymes Status: Acute (4) Elevated brain natriuretic peptide (BNP) level Code(s): R79.89 - Other specified abnormal findings of blood chemistry Status : Acute (5) Rhabdomyolysis Code(s): M62.82 - Rhabdomyolysis Status: Acute (6) Acute UTI Code(s): N39.0 - Urinary tract infection, site not specified Status: Acute (7) CESIA (acute kidney injury) Code(s): N17.9 - Acute kidney failure, unspecified Status: Acute (8) Acute dehydration Code(s): E86.0 - Dehydration Status: Acute - Plan 82-year-old male admitted secondary to severe dehydration and physical metabolic decompensation after being trapped on the floor for 3 days. E. coli UTI High-grade enterococcal bacteremia rule out endocarditis Severe sepsis Echocardiogram negative for endocarditis. 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 Because of expiratory wheezes will discontinue IV fluids for now. BNP 900 improved from previous. Continue incentive spirometry and albuterol as needed. Will add scheduled albuterol for 2 days. Repeat chest x- ray today Monitor electrolytes Follow renal function Monitor vital signs closely Consider nephrology consult if this is not improving Elevated troponin Elevated BNP Likely related to acute kidney injury, dehydration and rhabdomyolysis. Patient denies chest pain EKG with ventricular pacing Consider stress test EF 25% status post AICD unable to start ANNIE or arb secondary to acute kidney injury continue beta-randa Hyperkalemia Likely related to dehydration IV hydration Monitor potassium levels Monitor on telemetry Hypertension Continue baseline treatment Follow blood pressures Adjust treatments as needed As needed Micky Added Norvasc for better control Diabetes mellitus type 2, improving hyperglycemia Follow blood sugars Insulin sliding scale continue Levemir 20 units at bedtime and discontinue preprandial insulin secondary to hypoglycemia. Hypoglycemia protocol Diabetic diet Weakness Physical therapy evaluation, needs rehab Discharge Planning: Needs IV antibiotic pending clearance of bacteremia
--- NOTE | 2018-05-23 15:41 | XR ---
EXAM DATE: 05/23/2018 12:00 AM EDT AGE/SEX: 82 years / Male INDICATIONS: Congestive heart failure. CLINICAL DATA: This is the patient's subsequent encounter. Patient reports that signs and symptoms h ave been present for 4 - 6 days and indicates a pain score of 0/10. MEDICAL/SURGICAL HISTORY: None. Pacemaker. COMPARISON: [facility]PO, CHEST 1V SINGLE AP, 05/19/2018. . FINDINGS: There is some prominence of pulmonary vasculature suggestive of venous congestion. Otherwise the lung s are grossly clear. The heart size is stable. No evidence of any significant pleural effusions. Ther e are multiple old right-sided rib fractures. There is old fracture involving the right clavicle. The re is a pacemaker overlying the left chest. There has been no significant changes compared to the luis armando or exam. CONCLUSION: Pulmonary venous congestion. Otherwise, stable exam compared to the prior study. Electronically signed by: Evan Patel MD 05/23/2018 3:40 PM EDT
[2018-05-23] MEDS: Montelukast 10 MG Tablet PO SCH (17:31)
[2018-05-23] MEDS ORDERED: Pharmacy Ordered Lab Info OTHER ONE (20:45)
[2018-05-23] MEDS: Insulin Detemir Inj 1,000 UNIT/10 ML Vial SQ SCH (21:05)
[2018-05-23] MEDS: Vancomycin Inj 1,500 MG in Sodium Chlor 0.9% Inj 500 ML IV.SIG SCH (21:08)
[2018-05-24] MEDS: Heparin - SQ 10,000 UNITS/ML Vial SQ SCH ×3 (06:17→22:00)
[2018-05-24] MEDS: Levothyroxine 75 MCG Tablet PO SCH (06:17)
[2018-05-24 08:34] LABS: Calcium 8.5 mg/dL (8.5-10.1); Carbon Dioxide 19.6 meq/L (21.0-32.0); Magnesium 2.2 mg/dL (1.5-2.5); Potassium 4.4 meq/L (3.5-5.1)
[2018-05-24] MEDS: Insulin NovoLOG Aspart Correctional Sugar Inj SQ SCH ×4 (09:00→20:58)
[2018-05-24] MEDS: amLODIPine 5 MG Tablet PO SCH (09:01)
[2018-05-24] MEDS: Carvedilol 12.5 MG Tablet PO SCH ×2 (09:01→20:57)
[2018-05-24] MEDS ORDERED: amLODIPine 5 MG Tablet PO ONE (11:30)
--- NOTE | 2018-05-24 11:41 | P.PNIM ---
Subjective Interval history: Follow-up sepsis, UTI, bacteremia. Patient laying in bed, seen and examined, patient stated he is feeling better, denies any chest pain, pain or shortness of breath or wheezes. Patient stated he laid on the floor for 3 days stated he fell at home without passing out, stated his legs just gave out and unable to get up. Patient denies any muscle pain. Denies any headache or dizziness, denies any nausea or vomiting, denies any diarrhea or constipation. Patient denies any fever or chills. Physical Exam Vital signs: Vital Signs 05/23/18 12:00 05/23/18 14:11 05/23/18 17:00 Temperature 97.6 F 98.6 F Pulse Rate 56 L 61 Respiratory Rate 19 19 20 Blood Pressure 145/67 H 163/77 H Pulse Oximetry 95 05/23/18 18:00 05/23/18 20:00 05/24/18 00:00 Temperature 97.6 F 98.0 F Pulse Rate 60 62 60 Respiratory Rate 20 20 Blood Pressure 170/81 H 179/91 H Pulse Oximetry 96 98 05/24/18 04:00 05/24/18 07:35 05/24/18 08:00 Temperature 97.5 F L 98.0 F Pulse Rate 61 60 59 L Respiratory Rate 20 16 21 Blood Pressure 189/86 H 183/84 H Pulse Oximetry 96 95 100 Intake & Output 05/23/18 05/24/18 05/24/18 18:59 06:59 18:59 Intake Total 1095 / 1095 Output Total 900 / 900 Balance 195 / 195 Weight 93.5 kg Intake: IV 615 / 615 Vancomycin Inj 1,500 MG In NS 515 / 515 Inj 500 ML @ 250 mls/hr IV.SIG Q48H ROJELIO Rx#:[id number] Rocephin Inj 2,000 MG In NS Inj 100 / 100 100 ML @ 200 mls/hr IV.SIG Q24H ROJELIO Rx#:[id number] Oral 480 / 480 Output: Urine 900 / 900 Other: Date of Last Bowel Movement 05/22/18 05/23/18 Narrative: GENERAL: Well-developed, well-nourished, alert and oriented x3 in no apparent distress SKIN: Warm and dry. HEAD: Atraumatic. Normocephalic. EYES: Pupils equal and round. No scleral icterus. No injection or drainage. ENT: No nasal bleeding or discharge. Mucous membranes pink and moist. NECK: Trachea midline. No JVD. CARDIOVASCULAR: Regular rate and rhythm. RESPIRATORY: No accessory muscle use. Clear to auscultation. Breath sounds equal bilaterally. GASTROINTESTINAL: Abdomen obese soft, non-tender, nondistended. Hepatic and splenic margins not palpable. MUSCULOSKELETAL: Extremities without clubbing, cyanosis, or edema. No obvious deformities. NEUROLOGICAL: Awake and alert. No obvious cranial nerve deficits. Motor grossly within normal limits. Generalized weakness, moving all 4 extremities. Normal speech. PSYCHIATRIC: Appropriate mood and affect; insight and judgment normal. - Urinary Catheter Management Straight Cath placed during this visit: no Results - Labs CBC & Chem 7: 05/23/18 07:40 05/24/18 07:20 Laboratory Results - last 24 hr 05/23/18 05/23/18 05/23/18 11:25 17:38 19:52 Sodium Potassium Chloride Carbon Dioxide Anion Gap BUN Creatinine Estimated GFR POC Glucose 173 H 230 H 198 H Random Glucose Calcium Magnesium Vancomycin Trough 05/23/18 05/24/18 05/24/18 21:20 07:20 08:59 Sodium 144 Potassium 4.4 Chloride 113 H Carbon Dioxide 19.6 L Anion Gap 11 BUN 70 H Creatinine 2.67 H Estimated GFR 23 L POC Glucose 88 Random Glucose 103 Calcium 8.5 Magnesium 2.2 Vancomycin Trough 16.4 H Microbiology 05/21/18 06:35 Blood - Peripheral Aerobic Blood Culture - Preliminary No growth in 2 days 05/21/18 06:35 Blood - Peripheral Anaerobic Blood Culture - Preliminary No growth in 2 days 05/21/18 06:25 Blood - Peripheral Aerobic Blood Culture - Preliminary No growth in 2 days 05/21/18 06:25 Blood - Peripheral Anaerobic Blood Culture - Preliminary No growth in 2 days 05/19/18 16:55 Blood - Peripheral Aerobic Blood Culture - Final Enterococcus faecalis 05/19/18 16:55 Blood - Peripheral Anaerobic Blood Culture - Preliminary No growth in 4 days - Imaging Impressions Chest X-Ray 05/23/18 00:00 CONCLUSION: Pulmonary venous congestion. Otherwise, stable exam compared to the prior study. - Procedures none Assessment and Plan - Assessment (1) Hyperkalemia Code(s): E87.5 - Hyperkalemia Status: Acute (2) Acute renal failure Code(s): N17.9 - Acute kidney failure, unspecified Status: Acute (3) Elevated troponin Code(s): R74.8 - Abnormal levels of other serum enzymes Status: Acute (4) Elevated brain natriuretic peptide (BNP) level Code(s): R79.89 - Other specified abnormal findings of blood chemistry Status : Acute (5) Rhabdomyolysis Code(s): M62.82 - Rhabdomyolysis Status: Acute (6) Acute UTI Code(s): N39.0 - Urinary tract infection, site not specified Status: Acute (7) CESIA (acute kidney injury) Code(s): N17.9 - Acute kidney failure, unspecified Status: Acute (8) Acute dehydration Code(s): E86.0 - Dehydration Status: Acute - Plan 82-year-old male admitted secondary to severe dehydration and physical metabolic decompensation had a fall and was trapped on the floor for 3 days. E. coli UTI High-grade enterococcal bacteremia rule out endocarditis Severe sepsis Echocardiogram negative for endocarditis. KATT ordered, consult patient's news video editor Dr. Vazquez/Dr Benoit injection molding machine setter -continue IV Antbx Rocephin and vancomycin -Blood Cx E. Faecalis, Follow repeat blood Cx no growth x 3 days -urine culture E. Coli -May need extraction of AICD Acute renal failure history of chronic kidney disease stage IV Severe dehydration Rhabdomyolysis Clinically improving continue cautious IV hydration creatinine down to 2.67 baseline 2.3. Because of expiratory wheezes IV fluids was discontinued -BNP 900 improved from previous. -Continue incentive spirometry -continue scheduled albuterol for 2 days and prn -Repeat chest x-ray showed venous congestion, IVF held -Monitor electrolytes -Follow renal function -Monitor vital signs closely -consult nephrology Elevated troponin Elevated BNP -Likely related to acute kidney injury, dehydration and rhabdomyolysis. Patient denies chest pain -EKG with ventricular pacing -Consider stress test -EF 25% on 2D Echo 05/22/18, -status post AICD unable to start ANNIE or Arb secondary to acute kidney injury continue beta-randa Hyperkalemia -Likely related to dehydration, s/p IV hydration -Monitor potassium levels -Monitor on telemetry Hypertension -Bp elevated -Follow blood pressures -Adjust treatments as needed -add prn Catapres -increased Norvasc for better control Diabetes mellitus type 2, improving hyperglycemia -Follow blood sugars -Insulin sliding scale continue Levemir 20 units at bedtime and discontinue preprandial insulin secondary to hypoglycemia. - Hypoglycemia protocol -Diabetic diet Weakness Physical therapy evaluation, needs rehab DVT Prophylaxis: Heparin SQ Code Status: full code Discussed Condition With: patient and nurse
--- NOTE | 2018-05-24 14:48 | MB ---
cc: Albino Benoit MD DATE: 05/24/2018 REASON FOR CONSULTATION: Transesophageal echocardiography. HISTORY OF PRESENT ILLNESS: The patient is an 82-year-old white male, followed in our office by Dr. 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 The patient states about 2 days prior to admission, his legs gave out and he fell to the ground, unable to get up due to severe weakness. He does not believe he ever lost consciousness. He denies any recent dyspnea, chest pain, palpitations, pedal edema, paroxysmal nocturnal dyspnea, fevers. He has not had any surgery or dental work in the last few months. Here in the hospital, blood cultures have revealed evidence for Enterococcus bacteremia. PAST MEDICAL HISTORY: 1. Diabetes. 2. Hyperlipidemia. 3. Severe chronic renal insufficiency. 4. History of biventricular Biotronik AICD implant 04/06/2014. 5. Dilated cardiomyopathy with ejection fraction of 15-20% in 2013 possibly due to coronary artery disease with fixed inferior and lateral defects on a 2013 nuclear stress test. His last echo was 05/22/2018 showing ejection fraction of 25%. 6. Hypothyroidism. 7. Hypertension. 8. Benign prostatic hypertrophy. CARDIAC MEDICATIONS AT HOME: 1. Carvedilol 25 mg b.i.d. 2. Lovastatin 40 mg at bedtime. 3. Lisinopril 10 mg daily. 4. Aspirin 81 mg daily. ALLERGIES: AMOXICILLIN AND SULFA. FAMILY HISTORY: Noncontributory. SOCIAL HISTORY: The patient denies tobacco abuse. He drinks occasional alcohol. REVIEW OF SYSTEMS: As in history of present illness, otherwise negative or noncontributory. He also denies headache, abdominal pain, melena, dyspepsia, bright red blood per rectum. PHYSICAL EXAMINATION: VITAL SIGNS: Blood pressure 183/84 with a pulse of 59, respirations 20. GENERAL: He is a well-developed, well-nourished white male, in no acute distress. NECK: Jugular venous pressure is normal. Carotid pulses are 2+ bilaterally and without bruits. CHEST: Reveals clear lungs [place]ol[place]. CARDIAC: He has a regular rhythm and rate without S3, S4, or murmur. ABDOMEN: He has a soft, nontender abdomen. Bowel sounds are present. There is no definite hepatosplenomegaly. EXTREMITIES: Reveals no clubbing, cyanosis or edema. There are no definite peripheral stigmata of endocarditis. LABORATORY DATA: Includes WBC 10.0 (22.7 on admission), hemoglobin 11.6, platelets 169. Potassium 4.4, BUN 70, creatinine 2.67. Chest x-ray shows no acute disease. EKG from 05/19/2018 shows atrial sensed biventricular paced rhythm. IMPRESSION: Enterococcus faecalis bacteremia in this 82-year-old white male with a history of severe dilated cardiomyopathy, diabetes, severe chronic renal insufficiency, hypertension. I have been asked to see the patient for transesophageal echocardiography. I would agree with the need for this test, given his enterococcal bacteremia. Apparently, his urine culture has grown out Escherichia coli. Otherwise, his cardiac status appears to be stable. There is no evidence for congestive heart failure. RECOMMENDATIONS: 1. Transesophageal echocardiography in the morning. 2. Continue his usual home cardiac medications, except for lisinopril, given his renal insufficiency. MD BOGDAN Clements/venkat , 11:54 AM , 12:03 PM GERARD
--- NOTE | 2018-05-24 15:47 | P.CONNP ---
History of Present Illness Reason for Consult: Acute on chronic renal sufficiency. Primary Care Provider: No Primary Care Physician Family Provider: No Primary Care Physician History of Present Illness: This patient is an 82-year-old male whom I suspect does have a history of chronic kidney disease. His creatinine level was noted to have been 1.March and subsequently 2.18 November 2016. Patient stated that he saw a kidney doctor about 4 years ago but did not follow-up. He also follows with urologist Dr. Raman. He has a history of a severe cardiomyopathy with ejection fraction said to be 25% by echocardiogram this admission with previous AICD placement. Patient was found at home on the floor and admitted on May 19, 2018 to this facility. Duration said to be about 3 days. CPK level was elevated at time of admission at 1064. Creatinine level is 3.2 and has been improving progressively with a level of 2.67 today. Blood cultures have revealed enterococcus and he is being evaluated for a possible infection of his pacemaker lead with plans for KATT tomorrow. Lisinopril as well as diuretic therapy has been held since admission. Patient denies any symptoms suggestive of prostatism. Uses Flomax at home. Review of Systems All other systems reviewed negative except as stated in HPI PMFSH - History History Provided By: Patient - Medical History Medical History: Medical History (Last Reviewed 05/24/18 @ 09:31 by Agapito Sauceda) Diabetes Hypertension Pacemaker - Surgical History Surgical History: Surgical History (Last Reviewed 05/24/18 @ 09:31 by Agapito Sauceda) AICD (automatic cardioverter/defibrillator) present History of renal stent - Family History Family History: Family History (Last Updated 05/21/18 @ 20:26 by Nayana May MD) Other Family history non-contributory - Tobacco History Smoking Status: Never smoker - Alcohol History How Often Do You Have a Drink Containing Alcohol: Never - Substance Use History Substance History: No History of Abuse - Travel History Recent Travel in the [place] Within the Last 8 Weeks: No Recent Travel Out of the Country Within the Last 8 Weeks: No - Immunization History Tetanus Immunization: Unsure Hx Influenza Vaccine This Season: Yes Medications and Allergies Active Medications: Active Medications Albuterol (Albuterol Neb (Prn)) 2.5 mg NEB Q2HR NEB PRN PRN Reason: SHORTNESS OF BREATH/WHEEZING Albuterol (Albuterol Neb (Francisca)) 2.5 mg NEB TID NEB [facility] Last Admin: 05/24/18 13:58 Dose: 2.5 mg Amlodipine Besylate (Norvasc) 10 mg PO DAILY [facility] Aspirin (Ecotrin) 325 mg PO DAILY [facility] Last Admin: 05/24/18 09:01 Dose: 325 mg Carvedilol (Coreg) 25 mg PO BID [facility] Last Admin: 05/24/18 09:01 Dose: 25 mg Clonidine HCl (Catapres) 0.1 mg PO Q6H PRN PRN Reason: SYS BP GREATER THAN 160 [facility] Last Admin: 05/24/18 06:17 Dose: 0.1 mg Clonidine HCl (Catapres) 0.1 mg PO Q6H PRN PRN Reason: SBP>160, DBP>90 Dextrose (D50w Vial) 50 ml IV.PUSH UNSCH PRN PRN Reason: PER HYPOGLYCEMIA PROTOCOL Glucagon (Glucagon Inj) 1 mg OTHER PRN PRN PRN Reason: for Hypoglycemia Protocol Heparin Sodium (Porcine) (Heparin Inj) 5,000 units SQ Q8HR [facility] Last Admin: 05/24/18 15:24 Dose: 5,000 units Vancomycin HCl 1,500 mg/ (Sodium Chloride) 515 mls @ 250 mls/hr IV.SIG Q48H [facility] Last Infusion: 05/24/18 00:18 Dose: Infused Ceftriaxone Sodium 2,000 mg/ (Sodium Chloride) 100 mls @ 200 mls/hr IV.SIG Q24H [facility] Last Infusion: 05/24/18 13:47 Dose: Infused Insulin Aspart (Novolog Insulin Correctional Sugar Inj) 0 unit SQ ACHS [facility]; Protocol Last Admin: 05/24/18 12:53 Dose: Not Given Insulin Detemir (Levemir Inj) 20 unit SQ HS [facility] Last Admin: 05/23/18 21:05 Dose: 20 unit Levothyroxine Sodium (Synthroid) 75 mcg PO DAILY@0600 [facility] Last Admin: 05/24/18 06:17 Dose: 75 mcg Montelukast Sodium (Singulair) 10 mg PO QPM [facility] Last Admin: 05/23/18 17:31 Dose: 10 mg Ondansetron HCl (Zofran Inj) 4 mg IV.PUSH Q6H PRN PRN Reason: NAUSEA OR VOMITING Pom(Toujeo Max U-300 (/Units/Ml)) 0 each SQ HS [facility] Last Admin: 05/19/18 22:37 Dose: Not Given Pharmacy Profile Note (Vancomycin Consult Pharmacy) 1 each OTHER UNSCH PRN PRN Reason: Pharmacy to dose Tamsulosin HCl (Flomax) 0.4 mg PO DAILY [facility] Last Admin: 05/24/18 09:01 Dose: 0.4 mg Allergies Allergy/AdvReac Type Severity Reaction Status Date / Time amoxicillin Allergy Unknown Hives Verified 05/19/18 15:19 Sulfa (Sulfonamide Allergy Unknown Nausea/Vomi Verified 05/19/18 15:19 Antibiotics) ting Home Medications Medication Instructions Recorded Confirmed Type carvedilol [Coreg] 25 mg PO BID 05/19/18 05/19/18 History cholecalciferol (vitamin D3) 5,000 units PO DAILY 05/19/18 05/19/18 History [Vitamin D3] insulin glargine U-300 conc 20 unit SUBCUT HS 05/19/18 05/19/18 History [Toujeo Max U-300 SoloStar] insulin regular human [Novolin R 10 unit SUBCUT TIDAC 05/19/18 05/19/18 History Regular U-100 Insuln] levothyroxine 75 mcg PO DAILY 05/19/18 05/19/18 History lisinopril 10 mg PO DAILY 05/19/18 05/19/18 History lovastatin 40 mg PO QPM 05/19/18 05/19/18 History montelukast [Singulair] 10 mg PO QPM 05/19/18 05/19/18 History omega 6-bcu-iff-fish oil [Fish Oil] 1,200 mg PO DAILY 05/19/18 05/19/18 History tamsulosin 0.4 mg PO DAILY 05/19/18 05/19/18 History Exam Vital signs: Vital Signs 05/23/18 17:00 05/23/18 18:00 05/23/18 20:00 Temperature 98.6 F 97.6 F Pulse Rate 61 60 62 Respiratory Rate 20 20 Blood Pressure 163/77 H 170/81 H Pulse Oximetry 96 05/24/18 00:00 05/24/18 04:00 05/24/18 07:35 Temperature 98.0 F 97.5 F L Pulse Rate 60 61 60 Respiratory Rate 20 20 16 Blood Pressure 179/91 H 189/86 H Pulse Oximetry 98 96 95 05/24/18 08:00 05/24/18 12:00 05/24/18 13:58 Temperature 98.0 F 98.0 F Pulse Rate 59 L 61 61 Respiratory Rate 21 20 16 Blood Pressure 183/84 H 168/92 H Pulse Oximetry 100 96 Intake & Output 05/23/18 05/24/18 05/24/18 18:59 06:59 18:59 Intake Total 1095 / 1095 100 / 100 Output Total 900 / 900 Balance 195 / 195 100 / 100 Weight 93.5 kg Intake: IV 615 / 615 100 / 100 Vancomycin Inj 1,500 MG In NS 515 / 515 Inj 500 ML @ 250 mls/hr IV.SIG Q48H [facility] Rx#:[id number] Rocephin Inj 2,000 MG In NS Inj 100 / 100 100 / 100 100 ML @ 200 mls/hr IV.SIG Q24H [facility] Rx#:[id number] Oral 480 / 480 Output: Urine 900 / 900 Other: Date of Last Bowel Movement 05/22/18 05/23/18 Narrative: GENERAL: Pleasant elderly gentleman lying in bed not in respiratory distress. Able to give a fairly accurate history. SKIN: Warm and dry. HEAD: Normocephalic. EYES: No scleral icterus. No injection or drainage. NECK: Supple, trachea midline. No JVD or lymphadenopathy. CARDIOVASCULAR: Regular rate and rhythm without murmurs, gallops, or rubs. RESPIRATORY: Breath sounds equal bilaterally. No accessory muscle use. GASTROINTESTINAL: Abdomen soft, non-tender, nondistended. MUSCULOSKELETAL: No cyanosis, trace edema upper thighs. BACK: Nontender without obvious deformity. No CVA tenderness. Results - Lab Results 05/23/18 07:40 05/24/18 07:20 Most recent lab results Calcium 8.5 mg/dL (8.5-10.1) 05/24/18 07:20 Magnesium 2.2 mg/dL (1.5-2.5) 05/24/18 07:20 Assessment and Plan - Assessment (1) CESIA (acute kidney injury) Code(s): N17.9 - Acute kidney failure, unspecified Status: Acute Plan: Most likely related to dehydration on presentation with a possible component of rhabdomyolysis contributing as well as sepsis with bacteremia. Suspect patient's creatinine level is approaching his baseline range. Renal ultrasound. Serological screening as ordered. Screening for secondary hyperparathyroidism renal disease. Medications should be adjusted for the patient's estimated GFR if clinically indicated. Avoid agents with significant potential for nephrotoxicity possible including NSAIDs for analgesia, iodine contrast agents. Gadolinium is contraindicated if the GFR is below 30. (2) CKD (chronic kidney disease) stage 4, GFR 15-29 ml/min Code(s): N18.4 - Chronic kidney disease, stage 4 (severe) Status: Acute Plan: History suggesting chronic CKD with elevated creatinine level in the past and previous visit to I believe a community health program coordinator with no follow-up however. (3) Cardiomyopathy, ischemic Code(s): I25.5 - Ischemic cardiomyopathy Status: Acute Plan: Patient will likely require resumption of diuretic therapy soon. Continue to monitor volume status. (4) Acidosis, metabolic Code(s): E87.2 - Acidosis Status: Acute Plan: Bicarbonate below normal range on BMP. Will repeat tomorrow and if still low consider adding sodium bicarbonate orally. (5) Bacteremia due to Enterococcus Code(s): R78.81 - Bacteremia; B95.2 - Enterococcus as the cause of diseases classified elsewhere Status: Acute Plan: Defer management and antibiotic therapy to primary care nurse/infectious disease.
[2018-05-24] MEDS: Montelukast 10 MG Tablet PO SCH (17:37)
--- NOTE | 2018-05-24 18:22 | US ---
EXAM DATE: 05/24/2018 3:54 PM EDT AGE/SEX: 82 years / Male INDICATIONS: Increased lab values. CLINICAL DATA: This is the patient's initial encounter. Patient reports that signs and symptoms have been present for 1 day and indicates a pain score of 0/10. MEDICAL/SURGICAL HISTORY: Diabetes. Hypertension. Pacemaker. . AICD. Renal stent. COMPARISON: No prior exams available for comparison. MEASUREMENTS: Right Kidney:__9.9 x 4.6 x 5.8 cm Left Kidney:__10.1 x 3.4 x 5.2 cm FINDINGS: Right Kidney: Increased echotexture. No mass or hydronephrosis. Left Kidney: Increased echotexture. No mass or hydronephrosis. Small 1.9 by 1.5 cm cyst along the mid pole. Bladder: There is a stone along the base the urinary bladder measuring 1.4 x 0.7 cm. Otherwise the ur inary bladder is unremarkable. Other: The prostate measures 6.0 by 4.6 x 4.2 cm. CONCLUSION: 1. No evidence of hydronephrosis. 2. There is increased echogenicity of the renal parenchyma bilaterally characteristic of chronic med ical renal disease. 3. 1.9 cm left renal cyst. 4. 1.4 cm stone along the base the urinary bladder. 5. Diffuse enlargement of the prostate gland at 6 cm. Electronically signed by: Evan Patel MD 05/24/2018 6:21 PM EDT
[2018-05-24 18:32] LABS: Protein/Creatinine Ratio,Urine 2.33 (0.00-0.14)
[2018-05-24] MEDS: Insulin Detemir Inj 1,000 UNIT/10 ML Vial SQ SCH (20:58)
[2018-05-25] MEDS: Levothyroxine 75 MCG Tablet PO SCH (05:19)
[2018-05-25] MEDS: Heparin - SQ 10,000 UNITS/ML Vial SQ SCH ×3 (05:20→22:07)
[2018-05-25 06:02] LABS: Baso # (Auto) 0.1 th/mm3 (0.0-0.2); Baso % (Auto) 0.5 % (0.0-2.0); Eos # (Auto) 0.5 th/mm3 (0.0-0.4); Eos % (Auto) 4.9 % (0.0-4.0); Hemoglobin 11.3 gm/dL (13.0-17.0); Lymph # (Auto) 2.8 th/mm3 (1.0-4.8); Lymph % (Auto) 25.1 % (9.0-44.0); Mean Corpuscular HGB Conc 34.3 % (32.0-36.0); Mean Corpuscular Hemoglobin 29.2 pg (27.0-34.0); Mean Corpuscular Volume 85.4 fL (80.0-100.0); Mean Platelet Volume 8.7 fL (7.0-11.0); Mono # (Auto) 1.1 th/mm3 (0.0-0.9); Mono % (Auto) 9.8 % (0.0-8.0); Neut # (Auto) 6.6 th/mm3 (1.8-7.7); Neut % (Auto) 59.7 % (16.0-70.0); Platelet Count 214 th/mm3 (150-450); Red Blood Count 3.87 mil/mm3 (4.50-5.90); Red Cell Distribution Width 14.1 % (11.6-17.2); White Blood Count 11.1 th/mm3 (4.0-11.0)
[2018-05-25 06:26] LABS: Calcium 8.7 mg/dL (8.5-10.1); Carbon Dioxide 21.2 meq/L (21.0-32.0); Potassium 4.8 meq/L (3.5-5.1)
[2018-05-25 06:29] LABS: Vancomycin,Random 20.9 Comment
[2018-05-25] MEDS ORDERED: Lidocaine PF 1% Inj 5 ML Vial ONE (07:27)
[2018-05-25 07:58] LABS: Hepatitits B Surface Antigen Nonreactive (Nonreactive)
--- NOTE | 2018-05-25 08:36 | P.PNCA ---
Subjective Interval history: Feels "fine". No CP, dyspnea, dizziness, palpitations, chills. Slept well. Medications and Allergies Active Medications: Active Medications Albuterol (Albuterol Neb (Prn)) 2.5 mg NEB Q2HR NEB PRN PRN Reason: SHORTNESS OF BREATH/WHEEZING Albuterol (Albuterol Neb (Francisca)) 2.5 mg NEB TID NEB [facility] Last Admin: 05/24/18 19:48 Dose: 2.5 mg Amlodipine Besylate (Norvasc) 10 mg PO DAILY [facility] Aspirin (Ecotrin) 325 mg PO DAILY [facility] Last Admin: 05/24/18 09:01 Dose: 325 mg Carvedilol (Coreg) 25 mg PO BID [facility] Last Admin: 05/24/18 20:57 Dose: 25 mg Clonidine HCl (Catapres) 0.1 mg PO Q6H PRN PRN Reason: SYS BP GREATER THAN 160 [facility] Last Admin: 05/25/18 05:19 Dose: 0.1 mg Clonidine HCl (Catapres) 0.1 mg PO Q6H PRN PRN Reason: SBP>160, DBP>90 Dextrose (D50w Vial) 50 ml IV.PUSH UNSCH PRN PRN Reason: PER HYPOGLYCEMIA PROTOCOL Glucagon (Glucagon Inj) 1 mg OTHER PRN PRN PRN Reason: for Hypoglycemia Protocol Heparin Sodium (Porcine) (Heparin Inj) 5,000 units SQ Q8HR [facility] Last Admin: 05/25/18 05:20 Dose: Not Given Vancomycin HCl 1,500 mg/ (Sodium Chloride) 515 mls @ 250 mls/hr IV.SIG Q48H [facility] Last Infusion: 05/24/18 00:18 Dose: Infused Ceftriaxone Sodium 2,000 mg/ (Sodium Chloride) 100 mls @ 200 mls/hr IV.SIG Q24H [facility] Last Infusion: 05/24/18 13:47 Dose: Infused Insulin Aspart (Novolog Insulin Correctional Sugar Inj) 0 unit SQ ACHS [facility]; Protocol Last Admin: 05/24/18 20:58 Dose: 3 unit Insulin Detemir (Levemir Inj) 20 unit SQ HS [facility] Last Admin: 05/24/18 20:58 Dose: 20 unit Levothyroxine Sodium (Synthroid) 75 mcg PO DAILY@0600 [facility] Last Admin: 05/25/18 05:19 Dose: 75 mcg Montelukast Sodium (Singulair) 10 mg PO QPM [facility] Last Admin: 05/24/18 17:37 Dose: 10 mg Ondansetron HCl (Zofran Inj) 4 mg IV.PUSH Q6H PRN PRN Reason: NAUSEA OR VOMITING Pom(Toujeo Max U-300 (/Units/Ml)) 0 each SQ HS [facility] Last Admin: 05/19/18 22:37 Dose: Not Given Pharmacy Profile Note (Vancomycin Consult Pharmacy) 1 each OTHER UNSCH PRN PRN Reason: Pharmacy to dose Tamsulosin HCl (Flomax) 0.4 mg PO DAILY [facility] Last Admin: 05/24/18 09:01 Dose: 0.4 mg Allergies Allergy/AdvReac Type Severity Reaction Status Date / Time amoxicillin Allergy Unknown Hives Verified 05/19/18 15:19 Sulfa (Sulfonamide Allergy Unknown Nausea/Vomi Verified 05/19/18 15:19 Antibiotics) ting Home Medications Medication Instructions Recorded Confirmed Type carvedilol [Coreg] 25 mg PO BID 05/19/18 05/19/18 History cholecalciferol (vitamin D3) 5,000 units PO DAILY 05/19/18 05/19/18 History [Vitamin D3] insulin glargine U-300 conc 20 unit SUBCUT HS 05/19/18 05/19/18 History [Toujeo Max U-300 SoloStar] insulin regular human [Novolin R 10 unit SUBCUT TIDAC 05/19/18 05/19/18 History Regular U-100 Insuln] levothyroxine 75 mcg PO DAILY 05/19/18 05/19/18 History lisinopril 10 mg PO DAILY 05/19/18 05/19/18 History lovastatin 40 mg PO QPM 05/19/18 05/19/18 History montelukast [Singulair] 10 mg PO QPM 05/19/18 05/19/18 History omega 4-wns-jgq-fish oil [Fish Oil] 1,200 mg PO DAILY 05/19/18 05/19/18 History tamsulosin 0.4 mg PO DAILY 05/19/18 05/19/18 History Physical Exam Vital signs: Vital Signs 05/24/18 12:00 05/24/18 13:58 05/24/18 15:15 Temperature 98.0 F 98.3 F Pulse Rate 61 61 60 Respiratory Rate 20 16 20 Blood Pressure 168/92 H 185/79 H Pulse Oximetry 96 100 05/24/18 18:00 05/24/18 19:52 05/24/18 20:00 Temperature 98.3 F Pulse Rate 60 60 61 Respiratory Rate 25 H 19 Blood Pressure 160/72 H Pulse Oximetry 96 05/25/18 00:00 05/25/18 04:00 05/25/18 08:00 Temperature 98.0 F 98.0 F 97.5 F L Pulse Rate 60 86 61 Respiratory Rate 18 18 20 Blood Pressure 182/81 H 174/75 H 195/70 H Pulse Oximetry 96 96 96 Intake & Output 05/24/18 05/25/18 05/25/18 18:59 06:59 18:59 Intake Total 580 / 580 Output Total 1200 / 1200 1300 / 1300 Balance -620 / -620 -1300 / -1300 Weight 93.3 kg Intake: IV 100 / 100 Rocephin Inj 2,000 MG In NS Inj 100 / 100 100 ML @ 200 mls/hr IV.SIG Q24H [facility] Rx#:[id number] Oral 480 / 480 Output: Urine 1200 / 1200 1300 / 1300 Other: Date of Last Bowel Movement 05/23/18 # Bowel Movements 1 - Constitutional no acute distress - Routine Neck Exam Absent: JVD - Routine Respiratory Exam Present: CTA bilaterally - Routine Cardiovascular Exam Present: RRR, S1, S2. Absent: murmur, gallop - Routine Abdominal Exam Present: soft, normoactive bowel sounds. Absent: tenderness, organomegaly - Routine Extremities Exam Absent: cyanosis, clubbing, edema - Urinary Catheter Management Straight Cath placed during this visit: no Results 05/25/18 03:44 05/25/18 03:44 CBC 05/23/18 05/25/18 Range/Units 07:40 03:44 WBC 10.0 11.1 H (4.0-11.0) th/mm3 RBC 3.85 L 3.87 L (4.50-5.90) mil/mm3 Hgb 11.6 L 11.3 L (13.0-17.0) gm/dL Hct 33.6 L 33.0 L (39.0-51.0) % Plt Count 169 214 (150-450) th/mm3 Neut # (Auto) 6.1 6.6 (1.8-7.7) th/mm3 Lymph # (Auto) 2.3 2.8 (1.0-4.8) th/mm3 Sherman # (Auto) 1.1 H 1.1 H (0.0-0.9) th/mm3 Eos # (Auto) 0.4 0.5 H (0.0-0.4) th/mm3 Baso # (Auto) 0.1 0.1 (0.0-0.2) th/mm3 Comprehensive Metabolic Panel 05/23/18 05/24/18 05/25/18 Range/Units 07:40 07:20 03:44 Sodium 140 144 144 (136-145) meq/L Potassium 4.5 4.4 4.8 (3.5-5.1) meq/L Chloride 112 H 113 H 112 H (98-107) meq/L Carbon Dioxide 17.3 L 19.6 L 21.2 (21.0-32.0) meq/L BUN 71 H 70 H 60 H (7-18) mg/dL Creatinine 2.70 H 2.67 H 2.43 H (0.60-1.30) mg/dL Calcium 8.6 8.5 8.7 (8.5-10.1) mg/dL Intake and Output 05/24/18 05/25/18 05/25/18 22:59 06:59 14:59 Intake Total 480 / 480 Output Total 1200 / 1200 1300 / 1300 Balance -720 / -720 -1300 / -1300 Intake: Oral 480 / 480 Output: Urine 1200 / 1200 1300 / 1300 Other: Date of Last Bowel Movement 05/23/18 # Bowel Movements 1 Weight 93.3 kg - Imaging and Cardiology Imaging: Impressions Chest X-Ray 05/23/18 00:00 CONCLUSION: Pulmonary venous congestion. Otherwise, stable exam compared to the prior study. Abdomen/Bladder Ultrasound 05/24/18 15:54 CONCLUSION: 1. No evidence of hydronephrosis. 2. There is increased echogenicity of the renal parenchyma bilaterally characteristic of chronic medical renal disease. 3. 1.9 cm left renal cyst. 4. 1.4 cm stone along the base the urinary bladder. 5. Diffuse enlargement of the prostate gland at 6 cm. Assessment and Plan - Assessment (1) Bacteremia due to Enterococcus Code(s): R78.81 - Bacteremia; B95.2 - Enterococcus as the cause of diseases classified elsewhere Status: Acute Plan: Stable. No evidence for endocarditis on KATT today. ICD leads not well visualized. (2) Dilated cardiomyopathy Code(s): I42.0 - Dilated cardiomyopathy Status: Chronic Plan: Stable. Compensated. No CHF. Continue beta randa, no ANNIE-I or ARB with renal insufficiency. - Plan Code Status: full code Discussed Condition With: patient
[2018-05-25] MEDS: Insulin NovoLOG Aspart Correctional Sugar Inj SQ SCH ×4 (10:30→20:11)
--- NOTE | 2018-05-25 12:01 | P.PNIM ---
Subjective Interval history: Mr. Mccullough is an 82 year old male. He lives alone. He had a fall 3 days ago and has been on the floor of his home since. Today he was found by his son. He is brought into the emergency department. We find that he has a urinary tract infection and severe dehydration with decompensation. Clinical findings include hyperkalemia, acute renal failure, and rhabdomyolysis. Evidence of severe dehydration. Fluid hydration is initiated in the ER and will be continued overnight. Patient does have an elevated troponin and BNP but both of these are likely related to an accentuated by dehydration so they will repeat repeated in the morning for accuracy. Currently the patient gives some history but cannot recollect well and is not at his baseline mental state. He complains of some neck pain but no peripheral joint pains. No fevers. There is leukocytosis. Sepsis is suspected, though official diagnosis of sepsis is not possible due to normal heart rate, normal respiratory rate, and no fever. He does have leukocytosis. Infection source is the urine. Reported baseline medical conditions are hypertension, coronary artery disease, cardiac arrhythmia , and diabetes mellitus type 2. 10-3 Follow-up rhabdomyolysis. States he is tired. No UTI symptoms. Denies chest pain and shortness of breath. History of cardiomyopathy status post AICD denies history of CAD. 10-4 Follow-up UTI and bacteremia. States he is feeling better today. Had echocardiogram within the last 6 months from his case manager office. No recent chest pain and shortness of breath. No history of CAD. 10-5 Follow-up bacteremia and diabetes mellitus. Patient had difficulty breathing last night improved today still on room air. Also was hypoglycemic states noncompliant with insulin at home. ECHO Mildly dilated left ventricle. Wall thickness is measured at the upper limits of normal. The left ventricular systolic function is severely reduced with estimated ejection fraction of 25%. Global hypokinesis possibly more pronounced in the mid to basal inferior region. Moderate mitral annular calcification is present. No definite evidence for endocarditis. 10-6 Follow-up sepsis. States he is doing okay denies shortness of breath currently on room air. He is voiding. 10-7 Follow-up sepsis, UTI, bacteremia. Patient laying in bed, seen and examined, patient stated he is feeling better, denies any chest pain, pain or shortness of breath or wheezes. Patient stated he laid on the floor for 3 days stated he fell at home without passing out, stated his legs just gave out and unable to get up. Patient denies any muscle pain. Denies any headache or dizziness, denies any nausea or vomiting, denies any diarrhea or constipation. Patient denies any fever or chills. KATT ON 05-25 HAD KATT-NEGATIVE FOR ENDOCARDITIS WANTS A DIET ENLARGED PROSTATE ON ULTRASOUND DW RN AND PT AND CM CONTINUE ANTIBIOTICS PER ID Physical Exam Vital signs: Vital Signs 05/24/18 12:00 05/24/18 13:58 05/24/18 15:15 Temperature 98.0 F 98.3 F Pulse Rate 61 61 60 Respiratory Rate 20 16 20 Blood Pressure 168/92 H 185/79 H Pulse Oximetry 96 100 05/24/18 18:00 05/24/18 19:52 05/24/18 20:00 Temperature 98.3 F Pulse Rate 60 60 61 Respiratory Rate 25 H 19 Blood Pressure 160/72 H Pulse Oximetry 96 05/25/18 00:00 05/25/18 04:00 05/25/18 08:00 Temperature 98.0 F 98.0 F 97.5 F L Pulse Rate 60 86 61 Respiratory Rate 18 18 20 Blood Pressure 182/81 H 174/75 H 195/70 H Pulse Oximetry 96 96 96 Intake & Output 05/24/18 05/25/18 05/25/18 18:59 06:59 18:59 Intake Total 580 / 580 Output Total 1200 / 1200 1300 / 1300 Balance -620 / -620 -1300 / -1300 Weight 93.3 kg Intake: IV 100 / 100 Rocephin Inj 2,000 MG In NS Inj 100 / 100 100 ML @ 200 mls/hr IV.SIG Q24H ROJELIO Rx#:[id number] Oral 480 / 480 Output: Urine 1200 / 1200 1300 / 1300 Other: Date of Last Bowel Movement 05/23/18 # Bowel Movements 1 Narrative: GENERAL: Pleasant elderly gentleman lying in bed not in respiratory distress. Awake alert and oriented x3 in no acute distress SKIN: Warm and dry. HEAD: Normocephalic. Atraumatic EYES: No scleral icterus. No injection or drainage. PERRLA EOMI Tongue is midline oral mucosa is moist NECK: Supple, trachea midline. No JVD or lymphadenopathy. CARDIOVASCULAR: Regular rate and rhythm without murmurs, gallops, or rubs. RESPIRATORY: Breath sounds equal bilaterally. No accessory muscle use. GASTROINTESTINAL: Abdomen soft, non-tender, nondistended. MUSCULOSKELETAL: No cyanosis, trace edema upper thighs. BACK: Nontender without obvious deformity. No CVA tenderness. Appropriate mood and affect, insight and judgment is good - Urinary Catheter Management Straight Cath placed during this visit: no Results - Labs CBC & Chem 7: 05/25/18 03:44 05/25/18 03:44 Laboratory Results - last 24 hr 05/24/18 05/24/18 05/24/18 12:52 17:38 18:00 WBC RBC Hgb Hct MCV MCH MCHC RDW Plt Count MPV Prelim Diff (Auto) Neut % (Auto) Lymph % (Auto) [place] % (Auto) Eos % (Auto) Baso % (Auto) Neut # (Auto) Lymph # (Auto) [place] # (Auto) Eos # (Auto) Baso # (Auto) WBC Differential Diff Scan Differential Comment Sodium Potassium Chloride Carbon Dioxide Anion Gap BUN Creatinine Estimated GFR POC Glucose 141 H 165 H Random Glucose Calcium Total Protein (PEP) Vitamin D 25-Hydroxy PTH Intact Urine Eosinophils None seen Ur Random Creatinine U Random Total Protein Protein/Creatinin Ratio Random Vancomycin Complement C3 Complement C4 Hep Bs Antigen Hep C IgG Ab 05/24/18 05/24/18 05/25/18 18:00 19:46 03:44 WBC RBC Hgb Hct MCV MCH MCHC RDW Plt Count MPV Prelim Diff (Auto) Neut % (Auto) Lymph % (Auto) [place] % (Auto) Eos % (Auto) Baso % (Auto) Neut # (Auto) Lymph # (Auto) [place] # (Auto) Eos # (Auto) Baso # (Auto) WBC Differential Diff Scan Differential Comment Sodium 144 Potassium 4.8 Chloride 112 H Carbon Dioxide 21.2 Anion Gap 11 BUN 60 H Creatinine 2.43 H Estimated GFR 26 L POC Glucose 210 H Random Glucose 125 H Calcium 8.7 Total Protein (PEP) 6.4 Vitamin D 25-Hydroxy PTH Intact Urine Eosinophils Ur Random Creatinine 34 U Random Total Protein 79.1 H Protein/Creatinin Ratio 2.33 H Random Vancomycin 20.9 Complement C3 107 Complement C4 28 Hep Bs Antigen Hep C IgG Ab 05/25/18 05/25/18 05/25/18 03:44 03:44 03:44 WBC 11.1 H RBC 3.87 L Hgb 11.3 L Hct 33.0 L MCV 85.4 MCH 29.2 MCHC 34.3 RDW 14.1 Plt Count 214 MPV 8.7 Prelim Diff (Auto) Slide review pending Neut % (Auto) 59.7 Lymph % (Auto) 25.1 [place] % (Auto) 9.8 H Eos % (Auto) 4.9 H Baso % (Auto) 0.5 Neut # (Auto) 6.6 Lymph # (Auto) 2.8 [place] # (Auto) 1.1 H Eos # (Auto) 0.5 H Baso # (Auto) 0.1 WBC Differential . Diff Scan Auto diff confirmed Differential Comment . Sodium Potassium Chloride Carbon Dioxide Anion Gap BUN Creatinine Estimated GFR POC Glucose Random Glucose Calcium Total Protein (PEP) Vitamin D 25-Hydroxy 20.5 L PTH Intact 173.2 H Urine Eosinophils Ur Random Creatinine U Random Total Protein Protein/Creatinin Ratio Random Vancomycin Complement C3 Complement C4 Hep Bs Antigen Nonreactive Hep C IgG Ab Nonreactive 05/25/18 11:20 WBC RBC Hgb Hct MCV MCH MCHC RDW Plt Count MPV Prelim Diff (Auto) Neut % (Auto) Lymph % (Auto) [place] % (Auto) Eos % (Auto) Baso % (Auto) Neut # (Auto) Lymph # (Auto) [place] # (Auto) Eos # (Auto) Baso # (Auto) WBC Differential Diff Scan Differential Comment Sodium Potassium Chloride Carbon Dioxide Anion Gap BUN Creatinine Estimated GFR POC Glucose 70 Random Glucose Calcium Total Protein (PEP) Vitamin D 25-Hydroxy PTH Intact Urine Eosinophils Ur Random Creatinine U Random Total Protein Protein/Creatinin Ratio Random Vancomycin Complement C3 Complement C4 Hep Bs Antigen Hep C IgG Ab Microbiology 05/21/18 06:35 Blood - Peripheral Aerobic Blood Culture - Preliminary No growth in 4 days 05/21/18 06:35 Blood - Peripheral Anaerobic Blood Culture - Preliminary No growth in 4 days 05/21/18 06:25 Blood - Peripheral Aerobic Blood Culture - Preliminary No growth in 4 days 05/21/18 06:25 Blood - Peripheral Anaerobic Blood Culture - Preliminary No growth in 4 days 05/19/18 16:55 Blood - Peripheral Aerobic Blood Culture - Final Enterococcus faecalis 05/19/18 16:55 Blood - Peripheral Anaerobic Blood Culture - Final No growth in 5 days - Imaging Impressions Abdomen/Bladder Ultrasound 05/24/18 15:54 CONCLUSION: 1. No evidence of hydronephrosis. 2. There is increased echogenicity of the renal parenchyma bilaterally characteristic of chronic medical renal disease. 3. 1.9 cm left renal cyst. 4. 1.4 cm stone along the base the urinary bladder. 5. Diffuse enlargement of the prostate gland at 6 cm. - Procedures KATT negative for any endocarditis May 25 Assessment and Plan - Assessment (1) Hyperkalemia Code(s): E87.5 - Hyperkalemia Status: Acute (2) Acute renal failure Code(s): N17.9 - Acute kidney failure, unspecified Status: Acute (3) Elevated troponin Code(s): R74.8 - Abnormal levels of other serum enzymes Status: Acute (4) Elevated brain natriuretic peptide (BNP) level Code(s): R79.89 - Other specified abnormal findings of blood chemistry Status : Acute (5) Rhabdomyolysis Code(s): M62.82 - Rhabdomyolysis Status: Acute (6) Acute UTI Code(s): N39.0 - Urinary tract infection, site not specified Status: Acute (7) CESIA (acute kidney injury) Code(s): N17.9 - Acute kidney failure, unspecified Status: Acute (8) Acute dehydration Code(s): E86.0 - Dehydration Status: Acute - Plan 82-year-old male admitted secondary to severe dehydration and physical metabolic decompensation had a fall and was trapped on the floor for 3 days. E. coli UTI High-grade enterococcal bacteremia rule out endocarditis Severe sepsis Echocardiogram negative for endocarditis. 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 Faecalis, Follow repeat blood Cx no growth x 3 days -urine culture E. Coli -May need extraction of AICD Status post KATT which shows no endocarditis per Dr. Benoit May 25 Acute renal failure history of chronic kidney disease stage IV Severe dehydration Rhabdomyolysis Clinically improving continue cautious IV hydration creatinine down to 2.67 baseline 2.3. Because of expiratory wheezes IV fluids was discontinued -BNP 900 improved from previous. -Continue incentive spirometry -continue scheduled albuterol for 2 days and prn -Repeat chest x-ray showed venous congestion, IVF held -Monitor electrolytes -Follow renal function -Monitor vital signs closely -consult nephrology Ultrasound of kidney showed medical renal disease and enlarged prostate Elevated troponin Elevated BNP -Likely related to acute kidney injury, dehydration and rhabdomyolysis. Patient denies chest pain -EKG with ventricular pacing -Consider stress test -EF 25% on 2D Echo 05/22/18, -status post AICD unable to start ANNIE or Arb secondary to acute kidney injury continue beta-randa Hyperkalemia -Likely related to dehydration, s/p IV hydration -Monitor potassium levels -Monitor on telemetry Hypertension -Bp elevated -Follow blood pressures -Adjust treatments as needed -add prn Catapres -increased Norvasc for better control Diabetes mellitus type 2, improving hyperglycemia -Follow blood sugars -Insulin sliding scale continue Levemir 20 units at bedtime and discontinue preprandial insulin secondary to hypoglycemia. - Hypoglycemia protocol -Diabetic diet Weakness Physical therapy evaluation, needs rehab DVT Prophylaxis: Heparin SQ Code Status: Full code Discussed Condition With: RN and patient and case management Discharge Planning: Pending infectious disease clearance
--- NOTE | 2018-05-25 12:27 | ECHRPT ---
Indication: SEPSIS ENDOCARDITIS CONCLUSIONS Mildly dilated left ventricle. Wall thickness is normal. The left ventricular systolic function is severely reduced with an estimated ejection fraction of 25 %. Global hypokinesis. Mild mitral annular calcification. Trace mitral regurgitation. No definite evidence for endocarditis. BP: / HR: Rhythm: Technical Quality: Medications Complications Proc. Components FINDINGS LEFT VENTRICLE Mildly dilated left ventricle. Wall thickness is normal. The left ventricular systolic function is severely reduced with an estimated ejection fraction of 25 %. Global hypokinesis. RIGHT VENTRICLE Normal right ventricular size and systolic function. LEFT ATRIUM The left atrial size is normal. RIGHT ATRIUM The right atrial size is normal. ATRIAL SEPTUM Normal atrial septal thickness without atrial level shunting by limited color doppler interrogation. AORTA The aortic root and proximal ascending aorta are normal in size on limited imaging. MITRAL VALVE Mild mitral annular calcification. Trace mitral regurgitation. AORTIC VALVE Trileaflet aortic valve. No aortic valve stenosis or regurgitation. TRICUSPID VALVE Structurally normal tricuspid valve. No tricuspid valve stenosis or regurgitation. VESSELS The inferior vena cava is normal in size. PULMONARY VALVE The pulmonary valve is not well visualized. PERICADIUM No pericardial effusion. Albino Benoit MD (Electronically Signed) Final Date:25 May 2018 12:25
[2018-05-25] MEDS: amLODIPine 10 MG Tablet PO SCH (12:33)
[2018-05-25] MEDS: Carvedilol 12.5 MG Tablet PO SCH ×2 (12:33→20:05)
--- NOTE | 2018-05-25 13:23 | P.PNNP ---
Subjective Interval history: This patient is an 82-year-old male whom I suspect does have a history of chronic kidney disease. His creatinine level was noted to have been 1.March and subsequently 2.18 November 2016. Patient stated that he saw a kidney doctor about 4 years ago but did not follow-up. He also follows with urologist Dr. Raman. He has a history of a severe cardiomyopathy with ejection fraction said to be 25% by echocardiogram this admission with previous AICD placement. Patient was found at home on the floor and admitted on May 19, 2018 to this facility. Duration said to be about 3 days. CPK level was elevated at time of admission at 1064. Creatinine level is 3.2 and has been improving progressively with a level of 2.67 today. Blood cultures have revealed enterococcus and he is being evaluated for a possible infection of his pacemaker lead with plans for KATT tomorrow. Lisinopril as well as diuretic therapy has been held since admission. Patient denies any symptoms suggestive of prostatism. Uses Flomax at home. 05/25/18 Pt says he is feeling well. No specific complaints at the present. Physical Exam Vital signs: Vital Signs 05/24/18 13:58 05/24/18 15:15 05/24/18 18:00 Temperature 98.3 F Pulse Rate 61 60 60 Respiratory Rate 16 20 Blood Pressure 185/79 H Pulse Oximetry 100 05/24/18 19:52 05/24/18 20:00 05/25/18 00:00 Temperature 98.3 F 98.0 F Pulse Rate 60 61 60 Respiratory Rate 25 H 19 18 Blood Pressure 160/72 H 182/81 H Pulse Oximetry 96 96 05/25/18 04:00 05/25/18 08:00 05/25/18 12:00 Temperature 98.0 F 97.5 F L 97.4 F L Pulse Rate 86 61 60 Respiratory Rate 18 20 20 Blood Pressure 174/75 H 195/70 H 177/83 H Pulse Oximetry 96 96 97 05/25/18 12:17 Temperature Pulse Rate 82 Respiratory Rate 18 Blood Pressure Pulse Oximetry Intake & Output 05/24/18 05/25/18 05/25/18 18:59 06:59 18:59 Intake Total 580 / 580 Output Total 1200 / 1200 1300 / 1300 Balance -620 / -620 -1300 / -1300 Weight 93.3 kg Intake: IV 100 / 100 Rocephin Inj 2,000 MG In NS Inj 100 / 100 100 ML @ 200 mls/hr IV.SIG Q24H ROJELIO Rx#:[id number] Oral 480 / 480 Output: Urine 1200 / 1200 1300 / 1300 Other: Date of Last Bowel Movement 05/23/18 # Bowel Movements 1 - Constitutional no acute distress - Routine HEENT Exam Head: Present: normocephalic - Routine Neck Exam Present: supple - Routine Respiratory Exam Present: CTA bilaterally - Routine Cardiovascular Exam Present: RRR, S1, S2 - Routine Abdominal Exam Present: soft - Routine Extremities Exam Absent: edema - Routine Skin Exam Present: intact - Routine Neurological Exam Present: alert, oriented X3 - Urinary Catheter Management Straight Cath placed during this visit: no Assessment and Plan - Assessment (1) CESIA (acute kidney injury) Code(s): N17.9 - Acute kidney failure, unspecified Status: Acute Plan: Most likely related to dehydration on presentation with a possible component of rhabdomyolysis contributing as well as sepsis with bacteremia. Suspect patient's creatinine level is approaching his baseline range. Renal functions improving. No signs of volume overload at the present. Will resume Lasix in the upcoming day or so. Renal US showed no signs of obstruction, but large bladder stone at 1.9cm and enlarged prostate. Will need f/u with urology as outpatient. Good UOP---continue to monitor. Serology pending. Will continue to follow. Medications should be adjusted for the patient's estimated GFR if clinically indicated. Avoid agents with significant potential for nephrotoxicity possible including NSAIDs for analgesia, iodine contrast agents. Gadolinium is contraindicated if the GFR is below 30. 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 (3) Cardiomyopathy, ischemic Code(s): I25.5 - Ischemic cardiomyopathy Status: Acute Plan: Patient will likely require resumption of diuretic therapy soon. Continue to monitor volume status. (4) Acidosis, metabolic Code(s): E87.2 - Acidosis Status: Acute Plan: Improved. Likely related to renal insufficiency. 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 Repeat BCx negative.
[2018-05-25] MEDS: Montelukast 10 MG Tablet PO SCH (17:17)
[2018-05-25] MEDS: Insulin Detemir Inj 1,000 UNIT/10 ML Vial SQ SCH (20:12)
[2018-05-26] MEDS: Levothyroxine 75 MCG Tablet PO SCH (05:11)
[2018-05-26] MEDS: Heparin - SQ 10,000 UNITS/ML Vial SQ SCH ×3 (05:11→22:04)
[2018-05-26 07:43] LABS: Baso # (Auto) 0.1 th/mm3 (0.0-0.2); Baso % (Auto) 0.9 % (0.0-2.0); Eos # (Auto) 0.6 th/mm3 (0.0-0.4); Eos % (Auto) 4.9 % (0.0-4.0); Hematocrit 34.9 % (39.0-51.0); Hemoglobin 11.8 gm/dL (13.0-17.0); Lymph # (Auto) 3.3 th/mm3 (1.0-4.8); Lymph % (Auto) 25.8 % (9.0-44.0); Mean Corpuscular HGB Conc 33.7 % (32.0-36.0); Mean Corpuscular Hemoglobin 29.5 pg (27.0-34.0); Mean Corpuscular Volume 87.6 fL (80.0-100.0); Mean Platelet Volume 8.4 fL (7.0-11.0); Mono # (Auto) 0.9 th/mm3 (0.0-0.9); Neut # (Auto) 7.8 th/mm3 (1.8-7.7); Neut % (Auto) 61.4 % (16.0-70.0); Platelet Count 234 th/mm3 (150-450); Red Blood Count 3.99 mil/mm3 (4.50-5.90); Red Cell Distribution Width 14.2 % (11.6-17.2); White Blood Count 12.6 th/mm3 (4.0-11.0)
[2018-05-26 08:09] LABS: Albumin 2.4 g/dL (3.4-5.0); Anion Gap 8 meq/L (5-15); Aspartate Aminotransferase 30 U/L (15-37); Blood Urea Nitrogen 56 mg/dL (7-18); Calcium 9.2 mg/dL (8.5-10.1); Carbon Dioxide 21.6 meq/L (21.0-32.0); Chloride 112 meq/L (98-107); Glomerular Filtration Rate 27 mL/min (>89); Glucose,Random 60 mg/dL (74-106); Potassium 4.8 meq/L (3.5-5.1); Sodium 142 meq/L (136-145)
[2018-05-26 08:10] LABS: Alanine Aminotransferase 38 U/L (12-78)
[2018-05-26 08:19] LABS: Alkaline Phosphatase 98 U/L (45-117); Free T4 (Free Thyroxine) 1.45 ng/dL (0.76-1.46); Phosphorus 3.7 mg/dL (2.5-4.9); Total Protein 6.6 g/dL (6.4-8.2)
[2018-05-26] MEDS: Insulin NovoLOG Aspart Correctional Sugar Inj SQ SCH ×4 (09:43→22:02)
[2018-05-26] MEDS: amLODIPine 10 MG Tablet PO SCH (09:43)
[2018-05-26] MEDS: Carvedilol 12.5 MG Tablet PO SCH ×2 (09:43→22:03)
--- NOTE | 2018-05-26 12:17 | P.PNIM ---
Subjective Interval history: Mr. Mccullough is an 82 year old male. He lives alone. He had a fall 3 days ago and has been on the floor of his home since. Today he was found by his son. He is brought into the emergency department. We find that he has a urinary tract infection and severe dehydration with decompensation. Clinical findings include hyperkalemia, acute renal failure, and rhabdomyolysis. Evidence of severe dehydration. Fluid hydration is initiated in the ER and will be continued overnight. Patient does have an elevated troponin and BNP but both of these are likely related to an accentuated by dehydration so they will repeat repeated in the morning for accuracy. Currently the patient gives some history but cannot recollect well and is not at his baseline mental state. He complains of some neck pain but no peripheral joint pains. No fevers. There is leukocytosis. Sepsis is suspected, though official diagnosis of sepsis is not possible due to normal heart rate, normal respiratory rate, and no fever. He does have leukocytosis. Infection source is the urine. Reported baseline medical conditions are hypertension, coronary artery disease, cardiac arrhythmia , and diabetes mellitus type 2. 10-3 Follow-up rhabdomyolysis. States he is tired. No UTI symptoms. Denies chest pain and shortness of breath. History of cardiomyopathy status post AICD denies history of CAD. 10-4 Follow-up UTI and bacteremia. States he is feeling better today. Had echocardiogram within the last 6 months from his production lead office. No recent chest pain and shortness of breath. No history of CAD. 10-5 Follow-up bacteremia and diabetes mellitus. Patient had difficulty breathing last night improved today still on room air. Also was hypoglycemic states noncompliant with insulin at home. ECHO Mildly dilated left ventricle. Wall thickness is measured at the upper limits of normal. The left ventricular systolic function is severely reduced with estimated ejection fraction of 25%. Global hypokinesis possibly more pronounced in the mid to basal inferior region. Moderate mitral annular calcification is present. No definite evidence for endocarditis. 10-6 Follow-up sepsis. States he is doing okay denies shortness of breath currently on room air. He is voiding. 10-7 Follow-up sepsis, UTI, bacteremia. Patient laying in bed, seen and examined, patient stated he is feeling better, denies any chest pain, pain or shortness of breath or wheezes. Patient stated he laid on the floor for 3 days stated he fell at home without passing out, stated his legs just gave out and unable to get up. Patient denies any muscle pain. Denies any headache or dizziness, denies any nausea or vomiting, denies any diarrhea or constipation. Patient denies any fever or chills. KATT ON 05-25 HAD KATT-NEGATIVE FOR ENDOCARDITIS WANTS A DIET ENLARGED PROSTATE ON ULTRASOUND DW RN AND PT AND CM CONTINUE ANTIBIOTICS PER ID [id number] ANTIBIOTICS PER ID COMPLAINS OF ITCHING WILL NEED SNF IN FUTURE DW RN AND PT AND CM AND ID Physical Exam Vital signs: Vital Signs 05/25/18 12:17 05/25/18 16:00 05/25/18 20:00 Temperature 97.4 F L 98.3 F Pulse Rate 82 60 59 L Respiratory Rate 18 20 20 Blood Pressure 163/75 H 160/92 H Pulse Oximetry 95 94 L 05/25/18 20:40 05/26/18 00:00 05/26/18 04:00 Temperature 98 F 98.3 F Pulse Rate 60 60 59 L Respiratory Rate 16 18 18 Blood Pressure 160/75 H 164/77 H Pulse Oximetry 97 94 L 94 L 05/26/18 05:30 05/26/18 07:56 05/26/18 08:00 Temperature 97.0 F L Pulse Rate 60 60 60 Respiratory Rate 12 20 Blood Pressure 180/83 H Pulse Oximetry 100 Intake & Output 05/25/18 05/26/18 05/26/18 18:59 06:59 18:59 Intake Total 100 / 100 210 / 210 Balance 100 / 100 210 / 210 Weight 93.3 kg Intake: IV 100 / 100 Rocephin Inj 2,000 MG In NS Inj 100 / 100 100 ML @ 200 mls/hr IV.SIG Q24H ROJELIO Rx#:[id number] Oral 210 / 210 Other: # Voids 1 Date of Last Bowel Movement 05/25/18 05/25/18 05/25/18 Narrative: GENERAL: Pleasant elderly gentleman lying in bed not in respiratory distress. Awake alert and oriented x3 in no acute distress SKIN: Warm and dry. HEAD: Normocephalic. Atraumatic EYES: No scleral icterus. No injection or drainage. PERRLA EOMI Tongue is midline oral mucosa is moist NECK: Supple, trachea midline. No JVD or lymphadenopathy. CARDIOVASCULAR: Regular rate and rhythm without murmurs, gallops, or rubs. RESPIRATORY: Breath sounds equal bilaterally. No accessory muscle use. GASTROINTESTINAL: Abdomen soft, non-tender, nondistended. MUSCULOSKELETAL: No cyanosis, trace edema upper thighs. BACK: Nontender without obvious deformity. No CVA tenderness. Appropriate mood and affect, insight and judgment is good - Urinary Catheter Management Straight Cath placed during this visit: no Results - Labs CBC & Chem 7: 05/26/18 07:13 05/26/18 07:13 Laboratory Results - last 24 hr 05/25/18 05/25/18 05/26/18 17:12 20:03 07:13 WBC 12.6 H RBC 3.99 L Hgb 11.8 L Hct 34.9 L MCV 87.6 MCH 29.5 MCHC 33.7 RDW 14.2 Plt Count 234 MPV 8.4 Neut % (Auto) 61.4 Lymph % (Auto) 25.8 [place] % (Auto) 7.0 Eos % (Auto) 4.9 H Baso % (Auto) 0.9 Neut # (Auto) 7.8 H Lymph # (Auto) 3.3 [place] # (Auto) 0.9 Eos # (Auto) 0.6 H Baso # (Auto) 0.1 WBC Differential . Differential Comment Auto diff final Sodium Potassium Chloride Carbon Dioxide Anion Gap BUN Creatinine Estimated GFR POC Glucose 181 H 201 H Random Glucose Calcium Phosphorus Magnesium Total Bilirubin AST ALT Alkaline Phosphatase Total Protein Albumin TSH Free T4 05/26/18 05/26/18 05/26/18 07:13 08:28 09:01 WBC RBC Hgb Hct MCV MCH MCHC RDW Plt Count MPV Neut % (Auto) Lymph % (Auto) [place] % (Auto) Eos % (Auto) Baso % (Auto) Neut # (Auto) Lymph # (Auto) [place] # (Auto) Eos # (Auto) Baso # (Auto) WBC Differential Differential Comment Sodium 142 Potassium 4.8 Chloride 112 H Carbon Dioxide 21.6 Anion Gap 8 BUN 56 H Creatinine 2.32 H Estimated GFR 27 L POC Glucose 63 L 89 Random Glucose 60 L Calcium 9.2 Phosphorus 3.7 Magnesium 2.0 Total Bilirubin 0.2 AST 30 ALT 38 Alkaline Phosphatase 98 Total Protein 6.6 Albumin 2.4 L TSH 3.690 Free T4 1.45 05/26/18 10:26 WBC RBC Hgb Hct MCV MCH MCHC RDW Plt Count MPV Neut % (Auto) Lymph % (Auto) [place] % (Auto) Eos % (Auto) Baso % (Auto) Neut # (Auto) Lymph # (Auto) [place] # (Auto) Eos # (Auto) Baso # (Auto) WBC Differential Differential Comment Sodium Potassium Chloride Carbon Dioxide Anion Gap BUN Creatinine Estimated GFR POC Glucose 177 H Random Glucose Calcium Phosphorus Magnesium Total Bilirubin AST ALT Alkaline Phosphatase Total Protein Albumin TSH Free T4 Microbiology 05/21/18 06:35 Blood - Peripheral Aerobic Blood Culture - Final No growth in 5 days 05/21/18 06:35 Blood - Peripheral Anaerobic Blood Culture - Final No growth in 5 days 05/21/18 06:25 Blood - Peripheral Aerobic Blood Culture - Final No growth in 5 days 05/21/18 06:25 Blood - Peripheral Anaerobic Blood Culture - Final No growth in 5 days - Imaging ITS Impressions Head CT 05/19/18 15:49 CONCLUSION: 1. No acute hemorrhage or mass effect. 2. Moderate atrophic changes again noted. . Cervical Spine CT 05/19/18 15:50 CONCLUSION: 1. Moderate to severe degenerative changes are identified without evidence for acute fracture or listhesis. Venous Doppler Study 05/20/18 00:00 CONCLUSION: 1. Negative for deep venous thrombosis Chest X-Ray 05/23/18 00:00 CONCLUSION: Pulmonary venous congestion. Otherwise, stable exam compared to the prior study. Abdomen/Bladder Ultrasound 05/24/18 15:54 CONCLUSION: 1. No evidence of hydronephrosis. 2. There is increased echogenicity of the renal parenchyma bilaterally characteristic of chronic medical renal disease. 3. 1.9 cm left renal cyst. 4. 1.4 cm stone along the base the urinary bladder. 5. Diffuse enlargement of the prostate gland at 6 cm. - Procedures KATT negative for any endocarditis May 25 Assessment and Plan - Assessment (1) Hyperkalemia Code(s): E87.5 - Hyperkalemia Status: Acute (2) Acute renal failure Code(s): N17.9 - Acute kidney failure, unspecified Status: Acute (3) Elevated troponin Code(s): R74.8 - Abnormal levels of other serum enzymes Status: Acute (4) Elevated brain natriuretic peptide (BNP) level Code(s): R79.89 - Other specified abnormal findings of blood chemistry Status : Acute (5) Rhabdomyolysis Code(s): M62.82 - Rhabdomyolysis Status: Acute (6) Acute UTI Code(s): N39.0 - Urinary tract infection, site not specified Status: Acute (7) CESIA (acute kidney injury) Code(s): N17.9 - Acute kidney failure, unspecified Status: Acute (8) Acute dehydration Code(s): E86.0 - Dehydration Status: Acute - Plan 82-year-old male admitted secondary to severe dehydration and physical metabolic decompensation had a fall and was trapped on the floor for 3 days. E. coli UTI High-grade enterococcal bacteremia rule out endocarditis Severe sepsis Echocardiogram negative for endocarditis. 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 Faecalis, Follow repeat blood Cx no growth x 3 days -urine culture E. Coli -May need extraction of AICD--KATT IS NEGATIVE Status post KATT which shows no endocarditis per Dr. Benoit May 25 Acute renal failure history of chronic kidney disease stage IV Severe dehydration Rhabdomyolysis Clinically improving continue cautious IV hydration creatinine down to 2.67 baseline 2.3. Because of expiratory wheezes IV fluids was discontinued -BNP 900 improved from previous. -Continue incentive spirometry -continue scheduled albuterol for 2 days and prn -Repeat chest x-ray showed venous congestion, IVF held -Monitor electrolytes -Follow renal function -Monitor vital signs closely -consult nephrology Ultrasound of kidney showed medical renal disease and enlarged prostate Elevated troponin Elevated BNP -Likely related to acute kidney injury, dehydration and rhabdomyolysis. Patient denies chest pain -EKG with ventricular pacing -Consider stress test -EF 25% on 2D Echo 05/22/18, -status post AICD unable to start ANNIE or Arb secondary to acute kidney injury continue beta-randa Hyperkalemia -Likely related to dehydration, s/p IV hydration -Monitor potassium levels -Monitor on telemetry Hypertension -Bp elevated -Follow blood pressures -Adjust treatments as needed -add prn Catapres -increased Norvasc for better control Diabetes mellitus type 2, improving hyperglycemia -Follow blood sugars -Insulin sliding scale continue Levemir 20 units at bedtime and discontinue preprandial insulin secondary to hypoglycemia. - Hypoglycemia protocol -Diabetic diet Weakness Physical therapy evaluation, needs rehab ITCHING START ATARAX DVT Prophylaxis: Heparin SQ Code Status: FULL CODE Discussed Condition With: RN AND PT AND CM AND ID Discharge Planning: Pending infectious disease clearance
--- NOTE | 2018-05-26 12:43 | P.PNNP ---
Subjective Interval history: Pt seen sitting up in chair. Says he is feeling better and close to his baseline. <Eliazar Germaina R - Last Filed: 05/26/18 16:28> Physical Exam Vital signs: Vital Signs 05/25/18 16:00 05/25/18 20:00 05/25/18 20:40 Temperature 97.4 F L 98.3 F Pulse Rate 60 59 L 60 Respiratory Rate 20 20 16 Blood Pressure 163/75 H 160/92 H Pulse Oximetry 95 94 L 97 05/26/18 00:00 05/26/18 04:00 05/26/18 05:30 Temperature 98 F 98.3 F Pulse Rate 60 59 L 60 Respiratory Rate 18 18 Blood Pressure 160/75 H 164/77 H Pulse Oximetry 94 L 94 L 05/26/18 07:56 05/26/18 08:00 05/26/18 12:00 Temperature 97.0 F L 98.0 F Pulse Rate 60 60 62 Respiratory Rate 12 20 20 Blood Pressure 180/83 H 169/79 H Pulse Oximetry 100 96 Intake & Output 05/25/18 05/26/18 05/26/18 18:59 06:59 18:59 Intake Total 100 / 100 210 / 210 Balance 100 / 100 210 / 210 Weight 93.3 kg Intake: IV 100 / 100 Rocephin Inj 2,000 MG In NS Inj 100 / 100 100 ML @ 200 mls/hr IV.SIG Q24H ROJELIO Rx#:[id number] Oral 210 / 210 Other: # Voids 1 Date of Last Bowel Movement 05/25/18 05/25/18 05/25/18 - Constitutional no acute distress - Routine HEENT Exam Head: Present: normocephalic, atraumatic - Routine Neck Exam Present: supple - Routine Respiratory Exam Present: CTA bilaterally - Routine Cardiovascular Exam Present: RRR, S1, S2 - Routine Extremities Exam Present: edema (trace BLE ) - Routine Skin Exam Present: intact - Routine Neurological Exam Present: alert, oriented X3 - Urinary Catheter Management Straight Cath placed during this visit: no <GermainEliazar wallskaylan Silva - Last Filed: 05/26/18 16:28> Vital signs: Vital Signs 05/26/18 19:42 05/26/18 20:00 05/27/18 00:00 Temperature 98.1 F 97.8 F Pulse Rate 60 59 L 60 Respiratory Rate 20 18 18 Blood Pressure 172/70 H 176/78 H Pulse Oximetry 94 L 95 05/27/18 04:00 05/27/18 07:42 05/27/18 08:00 Temperature 97.8 F 97.7 F Pulse Rate 60 60 60 Respiratory Rate 18 16 18 Blood Pressure 180/74 H 181/72 H Pulse Oximetry 91 L 93 L 05/27/18 12:00 05/27/18 14:12 05/27/18 16:01 Temperature 98.2 F 98 F Pulse Rate 61 60 60 Respiratory Rate 18 16 18 Blood Pressure 179/83 H 176/72 H Pulse Oximetry 95 94 L 05/27/18 16:41 Temperature Pulse Rate Respiratory Rate Blood Pressure 142/64 H Pulse Oximetry Intake & Output 05/26/18 05/27/18 05/27/18 18:59 06:59 18:59 Intake Total 700 / 700 615 / 615 Output Total 300 / 300 Balance 700 / 700 -300 / -300 615 / 615 Weight 93.3 kg Intake: IV 100 / 100 615 / 615 Vancomycin Inj 1,500 MG In NS 515 / 515 Inj 500 ML @ 250 mls/hr IV.SIG ONCE ONE Rx#:[id number] Rocephin Inj 2,000 MG In NS Inj 100 / 100 100 / 100 100 ML @ 200 mls/hr IV.SIG Q24H ROJELIO Rx#:[id number] Oral 600 / 600 Output: Urine 300 / 300 Other: Date of Last Bowel Movement 05/25/18 - Urinary Catheter Management Straight Cath placed during this visit: no <Rosalba Jones - Last Filed: 05/27/18 17:26> Assessment and Plan - Assessment (1) CESIA (acute kidney injury) Code(s): N17.9 - Acute kidney failure, unspecified Status: Acute Plan: Most likely related to dehydration on presentation with a possible component of rhabdomyolysis contributing as well as sepsis with bacteremia. Suspect patient's creatinine level is approaching his baseline range. Renal functions improving and likely back to baseline. Will resume po Lasix as he is starting to develop some edema. Will see PRN. Please call if needed. Medications should be adjusted for the patient's estimated GFR if clinically indicated. Avoid agents with significant potential for nephrotoxicity possible including NSAIDs for analgesia, iodine contrast agents. Gadolinium is contraindicated if the GFR is below 30. (2) CKD (chronic kidney disease) stage 4, GFR 15-29 ml/min Code(s): N18.4 - Chronic kidney disease, stage 4 (severe) Status: Acute Plan: History suggesting chronic CKD with elevated creatinine level in the past and previous visit to I believe a nitrate operator with no follow-up however. (3) Cardiomyopathy, ischemic Code(s): I25.5 - Ischemic cardiomyopathy Status: Acute Plan: Patient will likely require resumption of diuretic therapy soon. Continue to monitor volume status. (4) Acidosis, metabolic Code(s): E87.2 - Acidosis Status: Acute Plan: Improved. Likely related to renal insufficiency. (5) Bacteremia due to Enterococcus Code(s): R78.81 - Bacteremia; B95.2 - Enterococcus as the cause of diseases classified elsewhere Status: Acute Plan: Defer management and antibiotic therapy to dial marker/infectious disease. Repeat BCx negative. <Nicole Germain - Last Filed: 05/26/18 16:28> - Assessment (1) CESIA (acute kidney injury) Code(s): N17.9 - Acute kidney failure, unspecified Status: Acute (2) CKD (chronic kidney disease) stage 4, GFR 15-29 ml/min Code(s): N18.4 - Chronic kidney disease, stage 4 (severe) Status: Acute (3) Cardiomyopathy, ischemic Code(s): I25.5 - Ischemic cardiomyopathy Status: Acute (4) Acidosis, metabolic Code(s): E87.2 - Acidosis Status: Acute (5) Bacteremia due to Enterococcus Code(s): R78.81 - Bacteremia; B95.2 - Enterococcus as the cause of diseases classified elsewhere Status: Acute - Attending Attestation The exam, history, and the medical decision-making described in the above note were completed with the assistance of the WILTON. I reviewed and agree with the findings presented. <Rosalba Jones - Last Filed: 05/27/18 17:26>
--- NOTE | 2018-05-26 13:10 | P.PNID ---
Subjective Remarks: c/o itching of th e back afebrile repeat clx NGTD Grew ent fecalis sparrow S with gent synergy S Antibiotics: CFTX vanco Allergies/Adverse Reactions: Allergies amoxicillin Allergy (Unknown, Verified 05/19/18 15:19) Hives Sulfa (Sulfonamide Antibiotics) Allergy (Unknown, Verified 05/19/18 15:19) Nausea/Vomiting Objective Vital Signs 05/25/18 16:00 05/25/18 20:00 05/25/18 20:40 Temperature 97.4 F L 98.3 F Pulse Rate 60 59 L 60 Respiratory Rate 20 20 16 Blood Pressure 163/75 H 160/92 H Pulse Oximetry 95 94 L 97 05/26/18 00:00 05/26/18 04:00 05/26/18 05:30 Temperature 98 F 98.3 F Pulse Rate 60 59 L 60 Respiratory Rate 18 18 Blood Pressure 160/75 H 164/77 H Pulse Oximetry 94 L 94 L 05/26/18 07:56 05/26/18 08:00 05/26/18 12:00 Temperature 97.0 F L 98.0 F Pulse Rate 60 60 62 Respiratory Rate 12 20 20 Blood Pressure 180/83 H 169/79 H Pulse Oximetry 100 96 Intake & Output 05/25/18 05/26/18 05/26/18 18:59 06:59 18:59 Intake Total 100 / 100 210 / 210 Balance 100 / 100 210 / 210 Weight 93.3 kg Intake: IV 100 / 100 Rocephin Inj 2,000 MG In NS Inj 100 / 100 100 ML @ 200 mls/hr IV.SIG Q24H [facility] Rx#:[id number] Oral 210 / 210 Other: # Voids 1 Date of Last Bowel Movement 05/25/18 05/25/18 05/25/18 05/21/18 06:35 Blood - Peripheral Aerobic Blood Culture - Final No growth in 5 days 05/21/18 06:35 Blood - Peripheral Anaerobic Blood Culture - Final No growth in 5 days 05/21/18 06:25 Blood - Peripheral Aerobic Blood Culture - Final No growth in 5 days 05/21/18 06:25 Blood - Peripheral Anaerobic Blood Culture - Final No growth in 5 days 05/19/18 16:55 Blood - Peripheral Aerobic Blood Culture - Final Enterococcus faecalis 05/19/18 16:55 Blood - Peripheral Anaerobic Blood Culture - Final No growth in 5 days Lab - Hematology Results 05/25/18 05/26/18 03:44 07:13 WBC 11.1 H 12.6 H RBC 3.87 L 3.99 L Hgb 11.3 L 11.8 L Hct 33.0 L 34.9 L MCV 85.4 87.6 MCH 29.2 29.5 MCHC 34.3 33.7 RDW 14.1 14.2 Plt Count 214 234 MPV 8.7 8.4 Prelim Diff (Auto) Slide review pending Neut % (Auto) 59.7 61.4 Lymph % (Auto) 25.1 25.8 [place] % (Auto) 9.8 H 7.0 Eos % (Auto) 4.9 H 4.9 H Baso % (Auto) 0.5 0.9 Neut # (Auto) 6.6 7.8 H Lymph # (Auto) 2.8 3.3 [place] # (Auto) 1.1 H 0.9 Eos # (Auto) 0.5 H 0.6 H Baso # (Auto) 0.1 0.1 WBC Differential . . Diff Scan Auto diff confirmed Differential Comment . Auto diff final Lab - Chemistry Results 05/24/18 05/24/18 05/25/18 17:38 19:46 03:44 Sodium 144 Potassium 4.8 Chloride 112 H Carbon Dioxide 21.2 Anion Gap 11 BUN 60 H Creatinine 2.43 H Estimated GFR 26 L POC Glucose 165 H 210 H Random Glucose 125 H Calcium 8.7 Phosphorus Magnesium Total Bilirubin AST ALT Alkaline Phosphatase Total Protein Total Protein (PEP) 6.4 Albumin Vitamin D 25-Hydroxy TSH Free T4 PTH Intact 05/25/18 05/25/18 05/25/18 03:44 03:44 11:20 Sodium Potassium Chloride Carbon Dioxide Anion Gap BUN Creatinine Estimated GFR POC Glucose 70 Random Glucose Calcium Phosphorus Magnesium Total Bilirubin AST ALT Alkaline Phosphatase Total Protein Total Protein (PEP) Albumin Vitamin D 25-Hydroxy 20.5 L TSH Free T4 PTH Intact 173.2 H 05/25/18 05/25/18 05/26/18 17:12 20:03 07:13 Sodium 142 Potassium 4.8 Chloride 112 H Carbon Dioxide 21.6 Anion Gap 8 BUN 56 H Creatinine 2.32 H Estimated GFR 27 L POC Glucose 181 H 201 H Random Glucose 60 L Calcium 9.2 Phosphorus 3.7 Magnesium 2.0 Total Bilirubin 0.2 AST 30 ALT 38 Alkaline Phosphatase 98 Total Protein 6.6 Total Protein (PEP) Albumin 2.4 L Vitamin D 25-Hydroxy TSH 3.690 Free T4 1.45 PTH Intact 05/26/18 05/26/18 05/26/18 08:28 09:01 10:26 Sodium Potassium Chloride Carbon Dioxide Anion Gap BUN Creatinine Estimated GFR POC Glucose 63 L 89 177 H Random Glucose Calcium Phosphorus Magnesium Total Bilirubin AST ALT Alkaline Phosphatase Total Protein Total Protein (PEP) Albumin Vitamin D 25-Hydroxy TSH Free T4 PTH Intact 05/26/18 12:21 Sodium Potassium Chloride Carbon Dioxide Anion Gap BUN Creatinine Estimated GFR POC Glucose 178 H Random Glucose Calcium Phosphorus Magnesium Total Bilirubin AST ALT Alkaline Phosphatase Total Protein Total Protein (PEP) Albumin Vitamin D 25-Hydroxy TSH Free T4 PTH Intact Imaging: ITS Impressions Head CT 05/19/18 15:49 CONCLUSION: 1. No acute hemorrhage or mass effect. 2. Moderate atrophic changes again noted. . Cervical Spine CT 05/19/18 15:50 CONCLUSION: 1. Moderate to severe degenerative changes are identified without evidence for acute fracture or listhesis. Venous Doppler Study 05/20/18 00:00 CONCLUSION: 1. Negative for deep venous thrombosis Chest X-Ray 05/23/18 00:00 CONCLUSION: Pulmonary venous congestion. Otherwise, stable exam compared to the prior study. Abdomen/Bladder Ultrasound 05/24/18 15:54 CONCLUSION: 1. No evidence of hydronephrosis. 2. There is increased echogenicity of the renal parenchyma bilaterally characteristic of chronic medical renal disease. 3. 1.9 cm left renal cyst. 4. 1.4 cm stone along the base the urinary bladder. 5. Diffuse enlargement of the prostate gland at 6 cm. Physical Exam: GENERAL: NAD SKIN: Warm and dry. Excoriations on the back. Few small papulas also present, cw heat rash HEAD: Atraumatic. Normocephalic. EYES: Pupils equal and round. No scleral icterus. No injection or drainage. ENT: No nasal bleeding or discharge. Mucous membranes pink and moist. NECK: Trachea midline. No JVD. CARDIOVASCULAR: Regular rate and rhythm. + L sided AICD, no skin changes over it RESPIRATORY: No accessory muscle use. Clear to auscultation. Breath sounds equal bilaterally. GASTROINTESTINAL: Abdomen soft, non-tender, nondistended. Hepatic and splenic margins not palpable. MUSCULOSKELETAL: Extremities without clubbing, cyanosis, or edema. No obvious deformities. NEUROLOGICAL: Awake and alert. No obvious cranial nerve deficits. Motor grossly within normal limits. Five out of 5 muscle strength in the arms and legs. Normal speech. PSYCHIATRIC: calm, cooperative : foely in place with clear yellow urine Assessment and Plan - Plan Found down Acute rhabdomylisis E.coli UTI, sparrow S including ampicillin ARF Enterococcal high grade bacteremia in AICD settings - r/o pacemaker lead endocarditis - KATT negative Multiple med problems (HTN, CHF CAD, DM) Amoxicillin allergy (hives reported) cont CFTX, can be switched to Levaquine 500 mg daily upon dc to complete 14 days course cont vancomycin Because the pt has pacer and the source is not ID'd will treat x 6 with vancomycin Repeat Blood clx 2 weeks after all antibiotics stopped dw Dr Red
--- NOTE | 2018-05-26 13:26 | P.DCO ---
Post Hospital Infusion Therapy - Infusion Therapy Location of Infusion Therapy: [facility] Infusion Therapy Order - Patient Information Patient Weight: 93.3 kg - Diagnosis (1) Bacteremia due to Enterococcus Code(s): R78.81 - Bacteremia; B95.2 - Enterococcus as the cause of diseases classified elsewhere - Administer Medication Vancomycin Dose: 1 gram IV Directions: q 48 hours Start Treatment: 05/27/18 Stop Treatment: 07/01/18 - Additional Information Venous Access: PICC Line Additional Instructions: [x] Peripheral flush and dressing changes per protocol [x] Implanted port and [place] line attendant: * Implanted port: 10 ml Normal Saline followed by 5 ml Heparin 100 units/ml Heparin flush after each use and monthly to maintain. [] May leave port accessed during therapy. [] May leave peripheral site accessed for duration of therapy. [x] If patient has SOB or respiratory distress, check oxygen saturation. If less than 90% or clinical signs of respiratory distress, administer oxygen at 2 L/min. via nasal cannula and notify physician. [x] Anaphylaxis/Reaction orders: * Stop infusion. * Keep IV line open with saline flush. * Notify physician. * Monitor vital signs every 15 minutes until symptoms resolve. * Check Oxygen saturation; Oxygen at 2 L/min. via nasal cannula if less than 90% or clinical signs of respiratory distress. * Administer diphenhydramine (Benadryl) 25 mg IV STAT, (unless patient has received as pre-med). May repeat once, if necessary. * Solu-Cortef 250 mg IVP over 30-60 seconds, use 100 mg vials for each dissolution. * Epinephrine (1mg/1 ml) 0.3 mg subcutaneously or IVP now with any signs of respiratory distress. * Check with physician for new additional pre-med orders if patient is re- challenged or re-treated. [x] May remove PICC line when treatment complete, after confirming with Physician. [x] If the patient is admitted to the hospital, the ED, or transferred via [facility] , complete transfer form including medication reconciliation order sheet. Weekly Labs: CBC w/diff, Creatinine, Vancomycin Trough Additional Information: Blood clx 2 weeks after all anticbiotics completed - Patient Information Allergies amoxicillin Allergy (Unknown, Verified 05/19/18 15:19) Hives Sulfa (Sulfonamide Antibiotics) Allergy (Unknown, Verified 05/19/18 15:19) Nausea/Vomiting
[2018-05-26] MEDS: Furosemide 20 MG Tablet PO SCH (17:21)
[2018-05-26] MEDS: Montelukast 10 MG Tablet PO SCH (18:16)
[2018-05-26] MEDS: Insulin Detemir Inj 1,000 UNIT/10 ML Vial SQ SCH (22:03)
[2018-05-27 03:51] LABS: Free Kappa/Lambda Light Chain 1.19 (0.26-1.65); Kappa Light Chain, Free 49.3 mg/L (3.3-19.4); Lambda Light Chain, Free 41.6 mg/L (5.7-26.3)
[2018-05-27 05:41] LABS: Albumin 2.4 g/dL (3.4-5.0); Calcium 8.8 mg/dL (8.5-10.1); Carbon Dioxide 21.4 meq/L (21.0-32.0); Phosphorus 4.2 mg/dL (2.5-4.9); Potassium 4.8 meq/L (3.5-5.1)
[2018-05-27 05:43] LABS: Vancomycin,Random 15.8 Comment
[2018-05-27] MEDS: Levothyroxine 75 MCG Tablet PO SCH (06:28)
[2018-05-27] MEDS: Heparin - SQ 10,000 UNITS/ML Vial SQ SCH ×3 (06:28→21:24)
[2018-05-27] MEDS: Insulin NovoLOG Aspart Correctional Sugar Inj SQ SCH ×4 (10:03→21:24)
[2018-05-27] MEDS: Carvedilol 12.5 MG Tablet PO SCH ×2 (10:16→21:24)
[2018-05-27] MEDS: Furosemide 20 MG Tablet PO SCH (10:17)
[2018-05-27] MEDS: amLODIPine 10 MG Tablet PO SCH (10:17)
--- NOTE | 2018-05-27 11:53 | P.PNIM ---
Subjective Interval history: Mr. Mccullough is an 82 year old male. He lives alone. He had a fall 3 days ago and has been on the floor of his home since. Today he was found by his son. He is brought into the emergency department. We find that he has a urinary tract infection and severe dehydration with decompensation. Clinical findings include hyperkalemia, acute renal failure, and rhabdomyolysis. Evidence of severe dehydration. Fluid hydration is initiated in the ER and will be continued overnight. Patient does have an elevated troponin and BNP but both of these are likely related to an accentuated by dehydration so they will repeat repeated in the morning for accuracy. Currently the patient gives some history but cannot recollect well and is not at his baseline mental state. He complains of some neck pain but no peripheral joint pains. No fevers. There is leukocytosis. Sepsis is suspected, though official diagnosis of sepsis is not possible due to normal heart rate, normal respiratory rate, and no fever. He does have leukocytosis. Infection source is the urine. Reported baseline medical conditions are hypertension, coronary artery disease, cardiac arrhythmia , and diabetes mellitus type 2. 10-3 Follow-up rhabdomyolysis. States he is tired. No UTI symptoms. Denies chest pain and shortness of breath. History of cardiomyopathy status post AICD denies history of CAD. 10-4 Follow-up UTI and bacteremia. States he is feeling better today. Had echocardiogram within the last 6 months from his rn pool office. No recent chest pain and shortness of breath. No history of CAD. 10-5 Follow-up bacteremia and diabetes mellitus. Patient had difficulty breathing last night improved today still on room air. Also was hypoglycemic states noncompliant with insulin at home. ECHO Mildly dilated left ventricle. Wall thickness is measured at the upper limits of normal. The left ventricular systolic function is severely reduced with estimated ejection fraction of 25%. Global hypokinesis possibly more pronounced in the mid to basal inferior region. Moderate mitral annular calcification is present. No definite evidence for endocarditis. 10-6 Follow-up sepsis. States he is doing okay denies shortness of breath currently on room air. He is voiding. 10-7 Follow-up sepsis, UTI, bacteremia. Patient laying in bed, seen and examined, patient stated he is feeling better, denies any chest pain, pain or shortness of breath or wheezes. Patient stated he laid on the floor for 3 days stated he fell at home without passing out, stated his legs just gave out and unable to get up. Patient denies any muscle pain. Denies any headache or dizziness, denies any nausea or vomiting, denies any diarrhea or constipation. Patient denies any fever or chills. KATT ON 05-25 HAD KATT-NEGATIVE FOR ENDOCARDITIS WANTS A DIET ENLARGED PROSTATE ON ULTRASOUND DW RN AND PT AND CM CONTINUE ANTIBIOTICS PER ID 10-9 ANTIBIOTICS PER ID COMPLAINS OF ITCHING WILL NEED SNF IN FUTURE DW RN AND PT AND CM AND ID 10-10 ANTIBIOTICS PER ID NEEDS PICC LINE BEFORE CAN GO TO SNF HOPEFULLY PICC TODAY AND SNF TOMORROW STILL HAVING SOME ITCHING- HAS ATARAX NEEDED FOR ITCHING DW RN AND PT AND CM Physical Exam Vital signs: Vital Signs 05/26/18 12:00 05/26/18 13:39 05/26/18 16:00 Temperature 98.0 F Pulse Rate 60 63 61 Respiratory Rate 20 16 Blood Pressure 169/79 H Pulse Oximetry 96 05/26/18 16:20 05/26/18 19:42 05/26/18 20:00 Temperature 98.1 F 98.1 F Pulse Rate 60 59 L Respiratory Rate 16 20 18 Blood Pressure 170/76 H 172/70 H Pulse Oximetry 94 L 94 L 05/27/18 00:00 05/27/18 04:00 05/27/18 07:42 Temperature 97.8 F 97.8 F Pulse Rate 60 60 60 Respiratory Rate 18 18 16 Blood Pressure 176/78 H 180/74 H Pulse Oximetry 95 91 L 05/27/18 08:00 Temperature 97.7 F Pulse Rate 60 Respiratory Rate 18 Blood Pressure 181/72 H Pulse Oximetry 93 L Intake & Output 05/26/18 05/27/18 05/27/18 18:59 06:59 18:59 Intake Total 700 / 700 Output Total 300 / 300 Balance 700 / 700 -300 / -300 Weight 93.3 kg Intake: IV 100 / 100 Rocephin Inj 2,000 MG In NS Inj 100 / 100 100 ML @ 200 mls/hr IV.SIG Q24H [facility] Rx#:[id number] Oral 600 / 600 Output: Urine 300 / 300 Other: Date of Last Bowel Movement 05/25/18 Narrative: GENERAL: Pleasant elderly gentleman lying in bed not in respiratory distress. Awake alert and oriented x3 in no acute distress SKIN: Warm and dry. HEAD: Normocephalic. Atraumatic EYES: No scleral icterus. No injection or drainage. PERRLA EOMI Tongue is midline oral mucosa is moist NECK: Supple, trachea midline. No JVD or lymphadenopathy. CARDIOVASCULAR: Regular rate and rhythm without murmurs, gallops, or rubs. RESPIRATORY: Breath sounds equal bilaterally. No accessory muscle use. GASTROINTESTINAL: Abdomen soft, non-tender, nondistended. MUSCULOSKELETAL: No cyanosis, trace edema upper thighs. BACK: Nontender without obvious deformity. No CVA tenderness. Appropriate mood and affect, insight and judgment is good - Urinary Catheter Management Straight Cath placed during this visit: no Results - Labs CBC & Chem 7: 05/26/18 07:13 05/27/18 04:55 Laboratory Results - last 24 hr 05/25/18 05/26/18 05/26/18 03:44 07:13 12:21 Sodium Potassium Chloride Carbon Dioxide Anion Gap BUN Creatinine Estimated GFR POC Glucose 178 H Random Glucose Hemoglobin A1c 9.0 H Calcium Phosphorus Albumin Random Vancomycin Free [place] Light Chains 49.30 H Free Lambda Light Chain 41.60 H Free [place]/Lambda Ratio 1.19 05/26/18 05/26/18 05/27/18 16:35 21:04 04:55 Sodium 142 Potassium 4.8 Chloride 111 H Carbon Dioxide 21.4 Anion Gap 10 BUN 53 H Creatinine 2.62 H Estimated GFR 23 L POC Glucose 226 H 281 H Random Glucose 121 H Hemoglobin A1c Calcium 8.8 Phosphorus 4.2 Albumin 2.4 L Random Vancomycin 15.8 Free [place] Light Chains Free Lambda Light Chain Free [place]/Lambda Ratio 05/27/18 08:43 Sodium Potassium Chloride Carbon Dioxide Anion Gap BUN Creatinine Estimated GFR POC Glucose 80 Random Glucose Hemoglobin A1c Calcium Phosphorus Albumin Random Vancomycin Free [place] Light Chains Free Lambda Light Chain Free [place]/Lambda Ratio Microbiology 05/21/18 06:35 Blood - Peripheral Aerobic Blood Culture - Final No growth in 5 days 05/21/18 06:35 Blood - Peripheral Anaerobic Blood Culture - Final No growth in 5 days 05/21/18 06:25 Blood - Peripheral Aerobic Blood Culture - Final No growth in 5 days 05/21/18 06:25 Blood - Peripheral Anaerobic Blood Culture - Final No growth in 5 days - Imaging ITS Impressions Head CT 05/19/18 15:49 CONCLUSION: 1. No acute hemorrhage or mass effect. 2. Moderate atrophic changes again noted. . Cervical Spine CT 05/19/18 15:50 CONCLUSION: 1. Moderate to severe degenerative changes are identified without evidence for acute fracture or listhesis. Venous Doppler Study 05/20/18 00:00 CONCLUSION: 1. Negative for deep venous thrombosis Chest X-Ray 05/23/18 00:00 CONCLUSION: Pulmonary venous congestion. Otherwise, stable exam compared to the prior study. Abdomen/Bladder Ultrasound 05/24/18 15:54 CONCLUSION: 1. No evidence of hydronephrosis. 2. There is increased echogenicity of the renal parenchyma bilaterally characteristic of chronic medical renal disease. 3. 1.9 cm left renal cyst. 4. 1.4 cm stone along the base the urinary bladder. 5. Diffuse enlargement of the prostate gland at 6 cm. - Procedures KATT negative for any endocarditis May 25 Assessment and Plan - Assessment (1) Hyperkalemia Code(s): E87.5 - Hyperkalemia Status: Acute (2) Acute renal failure Code(s): N17.9 - Acute kidney failure, unspecified Status: Acute (3) Elevated troponin Code(s): R74.8 - Abnormal levels of other serum enzymes Status: Acute (4) Elevated brain natriuretic peptide (BNP) level Code(s): R79.89 - Other specified abnormal findings of blood chemistry Status : Acute (5) Rhabdomyolysis Code(s): M62.82 - Rhabdomyolysis Status: Acute (6) Acute UTI Code(s): N39.0 - Urinary tract infection, site not specified Status: Acute (7) CESIA (acute kidney injury) Code(s): N17.9 - Acute kidney failure, unspecified Status: Acute (8) Acute dehydration Code(s): E86.0 - Dehydration Status: Acute - Plan 82-year-old male admitted secondary to severe dehydration and physical metabolic decompensation had a fall and was trapped on the floor for 3 days. E. coli UTI High-grade enterococcal bacteremia rule out endocarditis Severe sepsis Echocardiogram negative for endocarditis. KATT ordered, consult patient's rn pool Dr. Vazquez/Dr Benoit economic development specialist -continue IV Antbx Rocephin and vancomycin -Blood Cx E. Faecalis, Follow repeat blood Cx no growth x 3 days -urine culture E. Coli -May need extraction of AICD--KATT IS NEGATIVE Status post KATT which shows no endocarditis per Dr. Benoit May 25 ANTIBIOTICS PER ID- NEEDS PICC BEFORE DC Acute renal failure history of chronic kidney disease stage IV Severe dehydration Rhabdomyolysis Clinically improving continue cautious IV hydration creatinine down to 2.67 baseline 2.3. Because of expiratory wheezes IV fluids was discontinued -BNP 900 improved from previous. -Continue incentive spirometry -continue scheduled albuterol for 2 days and prn -Repeat chest x-ray showed venous congestion, IVF held -Monitor electrolytes -Follow renal function -Monitor vital signs closely -consult nephrology Ultrasound of kidney showed medical renal disease and enlarged prostate LABS MAY BE CLOSE TO BASELINE NOW Elevated troponin Elevated BNP -Likely related to acute kidney injury, dehydration and rhabdomyolysis. Patient denies chest pain -EKG with ventricular pacing -Consider stress test -EF 25% on 2D Echo 05/22/18, -status post AICD unable to start ANNIE or Arb secondary to acute kidney injury continue beta-randa Hyperkalemia -Likely related to dehydration, s/p IV hydration -Monitor potassium levels -Monitor on telemetry Hypertension -Bp elevated -Follow blood pressures -Adjust treatments as needed -add prn Catapres -increased Norvasc for better control Diabetes mellitus type 2, improving hyperglycemia -Follow blood sugars -Insulin sliding scale continue Levemir 20 units at bedtime and discontinue preprandial insulin secondary to hypoglycemia. - Hypoglycemia protocol -Diabetic diet Weakness Physical therapy evaluation, needs rehab ITCHING START ATARAX DVT Prophylaxis: Heparin SQ Code Status: FULL CODE Discussed Condition With: RN AND PT AND CM Discharge Planning: Pending infectious disease clearance AND PICC LINE PLACEMENT
[2018-05-27] MEDS ORDERED: Vancomycin Inj 1,500 MG in Sodium Chlor 0.9% Inj 500 ML IV.SIG ONE (12:00)
[2018-05-27] MEDS: Montelukast 10 MG Tablet PO SCH (18:29)
[2018-05-27] MEDS: Insulin Detemir Inj 1,000 UNIT/10 ML Vial SQ SCH (21:24)
[2018-05-28] MEDS: Heparin - SQ 10,000 UNITS/ML Vial SQ SCH ×3 (05:14→21:42)
[2018-05-28] MEDS: Levothyroxine 75 MCG Tablet PO SCH (05:14)
[2018-05-28] MEDS: Insulin NovoLOG Aspart Correctional Sugar Inj SQ SCH ×4 (08:07→20:25)
[2018-05-28] MEDS: Furosemide 20 MG Tablet PO SCH (08:09)
[2018-05-28] MEDS: Carvedilol 12.5 MG Tablet PO SCH ×2 (08:12→20:25)
[2018-05-28] MEDS: amLODIPine 10 MG Tablet PO SCH (08:12)
[2018-05-28 08:42] LABS: Baso # (Auto) 0.1 th/mm3 (0.0-0.2); Eos # (Auto) 0.5 th/mm3 (0.0-0.4); Eos % (Auto) 4.4 % (0.0-4.0); Hematocrit 31.2 % (39.0-51.0); Hemoglobin 10.9 gm/dL (13.0-17.0); Lymph # (Auto) 3.2 th/mm3 (1.0-4.8); Lymph % (Auto) 30.3 % (9.0-44.0); Mean Corpuscular Hemoglobin 30.3 pg (27.0-34.0); Mean Corpuscular Volume 86.5 fL (80.0-100.0); Mean Platelet Volume 8.6 fL (7.0-11.0); Mono # (Auto) 0.6 th/mm3 (0.0-0.9); Neut # (Auto) 6.2 th/mm3 (1.8-7.7); Neut % (Auto) 58.3 % (16.0-70.0); Platelet Count 221 th/mm3 (150-450); Red Cell Distribution Width 14.2 % (11.6-17.2); White Blood Count 10.7 th/mm3 (4.0-11.0)
[2018-05-28 09:05] LABS: INR 1.1 Ratio; Prothrombin Time 10.7 sec (9.8-11.6)
[2018-05-28 09:19] LABS: Albumin 2.4 g/dL (3.4-5.0); Anion Gap 9 meq/L (5-15); Aspartate Aminotransferase 30 U/L (15-37); Blood Urea Nitrogen 50 mg/dL (7-18); Calcium 8.9 mg/dL (8.5-10.1); Carbon Dioxide 22.4 meq/L (21.0-32.0); Chloride 110 meq/L (98-107); Glomerular Filtration Rate 26 mL/min (>89); Magnesium 1.9 mg/dL (1.5-2.5); Potassium 4.5 meq/L (3.5-5.1); Sodium 141 meq/L (136-145)
[2018-05-28 09:26] LABS: Alanine Aminotransferase 39 U/L (12-78); Alkaline Phosphatase 93 U/L (45-117); Phosphorus 3.7 mg/dL (2.5-4.9); Total Protein 6.4 g/dL (6.4-8.2)
[2018-05-28 09:29] LABS: Glucose,Random 45 mg/dL (74-106)
--- NOTE | 2018-05-28 11:48 | P.PNIM ---
Subjective Interval history: Mr. Mccullough is an 82 year old male. He lives alone. He had a fall 3 days ago and has been on the floor of his home since. Today he was found by his son. He is brought into the emergency department. We find that he has a urinary tract infection and severe dehydration with decompensation. Clinical findings include hyperkalemia, acute renal failure, and rhabdomyolysis. Evidence of severe dehydration. Fluid hydration is initiated in the ER and will be continued overnight. Patient does have an elevated troponin and BNP but both of these are likely related to an accentuated by dehydration so they will repeat repeated in the morning for accuracy. Currently the patient gives some history but cannot recollect well and is not at his baseline mental state. He complains of some neck pain but no peripheral joint pains. No fevers. There is leukocytosis. Sepsis is suspected, though official diagnosis of sepsis is not possible due to normal heart rate, normal respiratory rate, and no fever. He does have leukocytosis. Infection source is the urine. Reported baseline medical conditions are hypertension, coronary artery disease, cardiac arrhythmia , and diabetes mellitus type 2. 10-3 Follow-up rhabdomyolysis. States he is tired. No UTI symptoms. Denies chest pain and shortness of breath. History of cardiomyopathy status post AICD denies history of CAD. 10-4 Follow-up UTI and bacteremia. States he is feeling better today. Had echocardiogram within the last 6 months from his coordinate measuring machine operator office. No recent chest pain and shortness of breath. No history of CAD. 10-5 Follow-up bacteremia and diabetes mellitus. Patient had difficulty breathing last night improved today still on room air. Also was hypoglycemic states noncompliant with insulin at home. ECHO Mildly dilated left ventricle. Wall thickness is measured at the upper limits of normal. The left ventricular systolic function is severely reduced with estimated ejection fraction of 25%. Global hypokinesis possibly more pronounced in the mid to basal inferior region. Moderate mitral annular calcification is present. No definite evidence for endocarditis. 10-6 Follow-up sepsis. States he is doing okay denies shortness of breath currently on room air. He is voiding. 10-7 Follow-up sepsis, UTI, bacteremia. Patient laying in bed, seen and examined, patient stated he is feeling better, denies any chest pain, pain or shortness of breath or wheezes. Patient stated he laid on the floor for 3 days stated he fell at home without passing out, stated his legs just gave out and unable to get up. Patient denies any muscle pain. Denies any headache or dizziness, denies any nausea or vomiting, denies any diarrhea or constipation. Patient denies any fever or chills. KATT ON 05-25 HAD KATT-NEGATIVE FOR ENDOCARDITIS WANTS A DIET ENLARGED PROSTATE ON ULTRASOUND DW RN AND PT AND CM CONTINUE ANTIBIOTICS PER ID 10- ANTIBIOTICS PER ID COMPLAINS OF ITCHING WILL NEED SNF IN FUTURE DW RN AND PT AND CM AND ID 10- ANTIBIOTICS PER ID NEEDS PICC LINE BEFORE CAN GO TO SNF HOPEFULLY PICC TODAY AND SNF TOMORROW STILL HAVING SOME ITCHING- HAS ATARAX NEEDED FOR ITCHING DW RN AND PT AND CM 05-28 WILL NEED LINE BEFORE CAN BE DISCHARGED HAVING SOME ITCHING AGAIN- STATES THE ATARAX HELPED YESTERDAY DW RN AND PT AND CM NO PICC PER NEPHROLOGY Physical Exam Vital signs: Vital Signs 05/27/18 12:00 05/27/18 14:12 05/27/18 16:00 Temperature 98.2 F Pulse Rate 61 60 60 Respiratory Rate 18 16 Blood Pressure 179/83 H Pulse Oximetry 95 05/27/18 16:01 05/27/18 16:41 05/27/18 19:36 Temperature 98 F Pulse Rate 60 60 Respiratory Rate 18 18 Blood Pressure 176/72 H 142/64 H Pulse Oximetry 94 L 05/27/18 20:00 05/27/18 23:30 05/28/18 00:00 Temperature 98.1 F Pulse Rate 61 60 61 Respiratory Rate 20 Blood Pressure 171/74 H Pulse Oximetry 96 05/28/18 03:56 05/28/18 04:00 05/28/18 08:00 Temperature 98.2 F 97.8 F Pulse Rate 60 59 L 60 Respiratory Rate 18 18 Blood Pressure 168/77 H 166/74 H Pulse Oximetry 97 97 Intake & Output 05/27/18 05/28/18 05/28/18 18:59 06:59 18:59 Intake Total 615 / 615 2403 / 2403 Output Total 2500 / 2500 700 / 700 Balance -1885 / -1885 1703 / 1703 Weight 91.1 kg Intake: IV 615 / 615 Vancomycin Inj 1,500 MG In NS 515 / 515 Inj 500 ML @ 250 mls/hr IV.SIG ONCE ONE Rx#:[id number] Rocephin Inj 2,000 MG In NS Inj 100 / 100 100 ML @ 200 mls/hr IV.SIG Q24H [facility] Rx#:[id number] Oral 2403 / 2403 Output: Urine 2500 / 2500 700 / 700 Other: # Bowel Movements 1 0 Narrative: GENERAL: Pleasant elderly gentleman lying in bed not in respiratory distress. Awake alert and oriented x3 in no acute distress SKIN: Warm and dry. HEAD: Normocephalic. Atraumatic EYES: No scleral icterus. No injection or drainage. PERRLA EOMI Tongue is midline oral mucosa is moist NECK: Supple, trachea midline. No JVD or lymphadenopathy. CARDIOVASCULAR: Regular rate and rhythm without murmurs, gallops, or rubs. RESPIRATORY: Breath sounds equal bilaterally. No accessory muscle use. GASTROINTESTINAL: Abdomen soft, non-tender, nondistended. MUSCULOSKELETAL: No cyanosis, trace edema upper thighs. BACK: Nontender without obvious deformity. No CVA tenderness. Appropriate mood and affect, insight and judgment is good - Urinary Catheter Management Straight Cath placed during this visit: no Results - Labs CBC & Chem 7: 05/28/18 06:31 05/28/18 06:31 Laboratory Results - last 24 hr 05/25/18 05/27/18 05/27/18 03:44 13:25 20:30 WBC RBC Hgb Hct MCV MCH MCHC RDW Plt Count MPV Neut % (Auto) Lymph % (Auto) [place] % (Auto) Eos % (Auto) Baso % (Auto) Neut # (Auto) Lymph # (Auto) [place] # (Auto) Eos # (Auto) Baso # (Auto) WBC Differential Differential Comment PT INR Sodium Potassium Chloride Carbon Dioxide Anion Gap BUN Creatinine Estimated GFR POC Glucose 163 H 160 H Random Glucose Calcium Phosphorus Magnesium Total Bilirubin AST ALT Alkaline Phosphatase Total Protein Albumin Albumin (PEP) 3.17 L Albumin/Globulin Ratio 0.98 L Ubpzs-6-Rprpqiwef 0.27 Gwwxe-3-Kfssgekli 0.99 Beta Globulins 0.72 Gamma Globulins 1.26 PEP Pathologist Comment 05/28/18 05/28/18 05/28/18 06:31 06:31 08:31 WBC 10.7 RBC 3.60 L Hgb 10.9 L Hct 31.2 L MCV 86.5 MCH 30.3 MCHC 35.0 RDW 14.2 Plt Count 221 MPV 8.6 Neut % (Auto) 58.3 Lymph % (Auto) 30.3 [place] % (Auto) 6.0 Eos % (Auto) 4.4 H Baso % (Auto) 1.0 Neut # (Auto) 6.2 Lymph # (Auto) 3.2 [place] # (Auto) 0.6 Eos # (Auto) 0.5 H Baso # (Auto) 0.1 WBC Differential . Differential Comment Auto diff final PT 10.7 INR 1.1 Sodium 141 Potassium 4.5 Chloride 110 H Carbon Dioxide 22.4 Anion Gap 9 BUN 50 H Creatinine 2.36 H Estimated GFR 26 L POC Glucose Random Glucose 45 L* Calcium 8.9 Phosphorus 3.7 Magnesium 1.9 Total Bilirubin 0.3 AST 30 ALT 39 Alkaline Phosphatase 93 Total Protein 6.4 Albumin 2.4 L Albumin (PEP) Albumin/Globulin Ratio Esnrv-5-Dmmlvdxkj Yosrg-4-Zxzyvwgud Beta Globulins Gamma Globulins PEP Pathologist Comment - Procedures KATT negative for any endocarditis May 25 Assessment and Plan - Assessment (1) Hyperkalemia Code(s): E87.5 - Hyperkalemia Status: Acute (2) Acute renal failure Code(s): N17.9 - Acute kidney failure, unspecified Status: Acute (3) Elevated troponin Code(s): R74.8 - Abnormal levels of other serum enzymes Status: Acute (4) Elevated brain natriuretic peptide (BNP) level Code(s): R79.89 - Other specified abnormal findings of blood chemistry Status : Acute (5) Rhabdomyolysis Code(s): M62.82 - Rhabdomyolysis Status: Acute (6) Acute UTI Code(s): N39.0 - Urinary tract infection, site not specified Status: Acute (7) CESIA (acute kidney injury) Code(s): N17.9 - Acute kidney failure, unspecified Status: Acute (8) Acute dehydration Code(s): E86.0 - Dehydration Status: Acute - Plan 82-year-old male admitted secondary to severe dehydration and physical metabolic decompensation had a fall and was trapped on the floor for 3 days. E. coli UTI High-grade enterococcal bacteremia rule out endocarditis Severe sepsis Echocardiogram negative for endocarditis. KATT ordered, consult patient's coordinate measuring machine operator Dr. Vazquez/Dr Benoit rn provider relations -continue IV Antbx Rocephin and vancomycin -Blood Cx E. Faecalis, Follow repeat blood Cx no growth x 3 days -urine culture E. Coli -May need extraction of AICD--KATT IS NEGATIVE Status post KATT which shows no endocarditis per Dr. Benoit May 25 ANTIBIOTICS PER ID- NEEDS LINE BEFORE DC Acute renal failure history of chronic kidney disease stage IV Severe dehydration Rhabdomyolysis Clinically improving continue cautious IV hydration creatinine down to 2.67 baseline 2.3. Because of expiratory wheezes IV fluids was discontinued -BNP 900 improved from previous. -Continue incentive spirometry -continue scheduled albuterol for 2 days and prn -Repeat chest x-ray showed venous congestion, IVF held -Monitor electrolytes -Follow renal function -Monitor vital signs closely -consult nephrology Ultrasound of kidney showed medical renal disease and enlarged prostate LABS MAY BE CLOSE TO BASELINE NOW Elevated troponin Elevated BNP -Likely related to acute kidney injury, dehydration and rhabdomyolysis. Patient denies chest pain -EKG with ventricular pacing -Consider stress test -EF 25% on 2D Echo 05/22/18, -status post AICD unable to start ANNIE or Arb secondary to acute kidney injury continue beta-randa Hyperkalemia -Likely related to dehydration, s/p IV hydration -Monitor potassium levels -Monitor on telemetry Hypertension -Bp elevated -Follow blood pressures -Adjust treatments as needed -add prn Catapres -increased Norvasc for better control Diabetes mellitus type 2, improving hyperglycemia HYPOGLYCEMIA -Follow blood sugars -Insulin sliding scale continue Levemir 20 units at bedtime and discontinue preprandial insulin secondary to hypoglycemia. - Hypoglycemia protocol -Diabetic diet FOLLOW SUGARS Weakness Physical therapy evaluation, needs rehab ITCHING START ATARAX DVT Prophylaxis: Heparin SQ Code Status: FULL CODE Discussed Condition With: RN AND PT AND CM Discharge Planning: Pending infectious disease clearance AND PICC LINE PLACEMENT
[2018-05-28] MEDS ORDERED: fentaNYL Citrate Inj 250 MCG/5 ML Ampul ONE (13:44)
[2018-05-28] MEDS ORDERED: Lidocaine 1%/Epinephrine 1:100,000 Inj 30 ML Vial ONE (13:54)
[2018-05-28] MEDS ORDERED: Heparin Central Flush 100 UNIT/ML 5 ML Vial IV.FLUSH ONE (13:54)
--- NOTE | 2018-05-28 15:08 | P.PNADD ---
Addendum to Inpatient Note Additional information: attempted to see the pt He is in IR getting Danelle will see later
[2018-05-28] MEDS ORDERED: Heparin Central Flush 100 UNIT/ML 5 ML Vial IV.FLUSH PRN (15:39)
--- NOTE | 2018-05-28 15:43 | P.RAD ---
Post Procedure Progress Note - Procedure Information Procedure Date: 05/28/18 Supervising Radiologist: Cesar Villalba MD Estimated blood loss (mL): 2 Anesthesia: Local, Analgesia, Conscious Sedation - Plan of Activity Patient to Unit: ROPU Patient Condition: Good See PACS Report for procedural detail/treatment. CV[facility] Radiology Procedures right Internal Jugular Tunneled Central Line Placement Device: single lumen [place]: 7
--- NOTE | 2018-05-28 15:55 | IR ---
EXAM DATE: 05/28/2018 10:45 PM EDT AGE/SEX: 82 years / Male INDICATIONS: Patient with bacteremia in need of tunneled Jane catheter placement for antibiotics. CLINICAL DATA: This is the patient's initial encounter. Patient reports that signs and symptoms have been present for 2 weeks and indicates a pain score of 4/10. MEDICAL/SURGICAL HISTORY: Diabetes. Hypertension. Heart disease Pacemaker. Renal stent COMPARISON: No prior exams available for comparison. FLUORO TIME (min): 1.2 IMAGE SERIES: 1 SEDATION TIME (min): 30 MEDICATION(S): 3mg midazolam (Versed) IV 150mcg fentanyl (Sublimaze) IV DEVICE(S): Right 6.6F Broviac Single lumen Jane . . PROCEDURE: 1. Ultrasound-guided puncture of the prescribed vein. 2. Fluoroscopic guidance. 3. Jane catheter placement 4. Conscious sedation with continuous EKG and oximetry monitoring. The risks, benefits and alternatives to the procedure were explained and verbal and written consent w as obtained. The site was prepped in sterile fashion. Full sterile technique was used, including ca p, mask, sterile gloves and gown and a large sterile sheet. Hand hygiene and 2% chlorhexidine Betadi ne was utilized per protocol for cutaneous antisepsis with appropriate dry time for site. Sterile ge l and sterile probe cover were utilized for ultrasound guidance. The skin and subcutaneous tissues w ere infiltrated with local anesthetic solution. With ultrasound and fluoroscopic guidance a dermatotomy was created in the supraclavicular region. A micropuncture set was used to access to the prescribed vein and serial dilatation was performed to a ccept a Jane catheter. A subcutaneous tunnel was created and in antegrade fashion the catheter wa s pulled through the tunnel, cut to the appropriate length and place through the sheath. The cathete r was locked with heparin and sutured in place. Conscious sedation was performed with the prescribed dosages and duration as above in the presence of an independent trained radiology nurse to assist in the monitoring of the patient. EKG and oximetry remained stable throughout the procedure. The patient tolerated the procedure well and there were no complications. The patient was sent to post anesthesia recovery in stable condition. CONCLUSION: 1. Uncomplicated Jane catheter placement as above. 2. Of note, patient has a comminuted fractures of the right clavicular diaphysis. Fracture through t he anterior aspect of the right second rib as well. Electronically signed by: Cesar Villalba MD 05/28/2018 3:53 PM EDT
[2018-05-28] MEDS: Montelukast 10 MG Tablet PO SCH (17:38)
[2018-05-28] MEDS: Insulin Detemir Inj 1,000 UNIT/10 ML Vial SQ SCH (20:24)
[2018-05-29 04:15] LABS: Baso # (Auto) 0.1 th/mm3 (0.0-0.2); Baso % (Auto) 0.8 % (0.0-2.0); Eos # (Auto) 0.3 th/mm3 (0.0-0.4); Eos % (Auto) 3.6 % (0.0-4.0); Hematocrit 30.8 % (39.0-51.0); Hemoglobin 10.7 gm/dL (13.0-17.0); Lymph # (Auto) 2.5 th/mm3 (1.0-4.8); Mean Corpuscular HGB Conc 34.7 % (32.0-36.0); Mean Corpuscular Volume 86.6 fL (80.0-100.0); Mean Platelet Volume 8.2 fL (7.0-11.0); Mono # (Auto) 0.6 th/mm3 (0.0-0.9); Mono % (Auto) 6.6 % (0.0-8.0); Platelet Count 229 th/mm3 (150-450); Red Blood Count 3.56 mil/mm3 (4.50-5.90); Red Cell Distribution Width 13.8 % (11.6-17.2); White Blood Count 9.5 th/mm3 (4.0-11.0)
[2018-05-29 04:16] VITALS: PULSE 60
[2018-05-29 04:51] LABS: Alanine Aminotransferase 37 U/L (12-78); Albumin 2.4 g/dL (3.4-5.0); Alkaline Phosphatase 92 U/L (45-117); Anion Gap 8 meq/L (5-15); Aspartate Aminotransferase 24 U/L (15-37); Blood Urea Nitrogen 55 mg/dL (7-18); Calcium 8.9 mg/dL (8.5-10.1); Carbon Dioxide 25.4 meq/L (21.0-32.0); Chloride 107 meq/L (98-107); Glomerular Filtration Rate 22 mL/min (>89); Glucose,Random 271 mg/dL (74-106); Magnesium 1.7 mg/dL (1.5-2.5); Phosphorus 4.3 mg/dL (2.5-4.9); Potassium 5.2 meq/L (3.5-5.1); Sodium 140 meq/L (136-145); Total Protein 6.1 g/dL (6.4-8.2)
[2018-05-29] MEDS: Heparin - SQ 10,000 UNITS/ML Vial SQ SCH ×2 (05:17→13:50)
[2018-05-29] MEDS: Levothyroxine 75 MCG Tablet PO SCH (05:17)
[2018-05-29] MEDS: Insulin NovoLOG Aspart Correctional Sugar Inj SQ SCH ×2 (08:01→12:57)
[2018-05-29] MEDS: Furosemide 20 MG Tablet PO SCH (08:02)
[2018-05-29] MEDS: amLODIPine 10 MG Tablet PO SCH (08:02)
[2018-05-29] MEDS: Carvedilol 12.5 MG Tablet PO SCH (08:03)
[2018-05-29 08:50] VITALS: RESP 18
[2018-05-29 09:00] VITALS: O2SAT 96
[2018-05-29] MEDS ORDERED: Heparin Central Flush 100 UNIT/ML 5 ML Vial IV.FLUSH SCH (09:00)
--- NOTE | 2018-05-29 10:51 | P.PNIM ---
Subjective Interval history: Mr. Mccullough is an 82 year old male. He lives alone. He had a fall 3 days ago and has been on the floor of his home since. Today he was found by his son. He is brought into the emergency department. We find that he has a urinary tract infection and severe dehydration with decompensation. Clinical findings include hyperkalemia, acute renal failure, and rhabdomyolysis. Evidence of severe dehydration. Fluid hydration is initiated in the ER and will be continued overnight. Patient does have an elevated troponin and BNP but both of these are likely related to an accentuated by dehydration so they will repeat repeated in the morning for accuracy. Currently the patient gives some history but cannot recollect well and is not at his baseline mental state. He complains of some neck pain but no peripheral joint pains. No fevers. There is leukocytosis. Sepsis is suspected, though official diagnosis of sepsis is not possible due to normal heart rate, normal respiratory rate, and no fever. He does have leukocytosis. Infection source is the urine. Reported baseline medical conditions are hypertension, coronary artery disease, cardiac arrhythmia , and diabetes mellitus type 2. 10-3 Follow-up rhabdomyolysis. States he is tired. No UTI symptoms. Denies chest pain and shortness of breath. History of cardiomyopathy status post AICD denies history of CAD. 10-4 Follow-up UTI and bacteremia. States he is feeling better today. Had echocardiogram within the last 6 months from his wearing apparel folder office. No recent chest pain and shortness of breath. No history of CAD. 10-5 Follow-up bacteremia and diabetes mellitus. Patient had difficulty breathing last night improved today still on room air. Also was hypoglycemic states noncompliant with insulin at home. ECHO Mildly dilated left ventricle. Wall thickness is measured at the upper limits of normal. The left ventricular systolic function is severely reduced with estimated ejection fraction of 25%. Global hypokinesis possibly more pronounced in the mid to basal inferior region. Moderate mitral annular calcification is present. No definite evidence for endocarditis. 10-6 Follow-up sepsis. States he is doing okay denies shortness of breath currently on room air. He is voiding. 10-7 Follow-up sepsis, UTI, bacteremia. Patient laying in bed, seen and examined, patient stated he is feeling better, denies any chest pain, pain or shortness of breath or wheezes. Patient stated he laid on the floor for 3 days stated he fell at home without passing out, stated his legs just gave out and unable to get up. Patient denies any muscle pain. Denies any headache or dizziness, denies any nausea or vomiting, denies any diarrhea or constipation. Patient denies any fever or chills. KATT ON 05-25 HAD KATT-NEGATIVE FOR ENDOCARDITIS WANTS A DIET ENLARGED PROSTATE ON ULTRASOUND DW RN AND PT AND CM CONTINUE ANTIBIOTICS PER ID [id number] ANTIBIOTICS PER ID COMPLAINS OF ITCHING WILL NEED SNF IN FUTURE DW RN AND PT AND CM AND ID 10- ANTIBIOTICS PER ID NEEDS PICC LINE BEFORE CAN GO TO SNF [facility] PICC TODAY AND SNF TOMORROW STILL HAVING SOME ITCHING- HAS ATARAX NEEDED FOR ITCHING DW RN AND PT AND CM 05-28 WILL NEED LINE BEFORE CAN BE DISCHARGED HAVING SOME ITCHING AGAIN- STATES THE ATARAX HELPED YESTERDAY DW RN AND PT AND CM NO PICC PER NEPHROLOGY 05-29 HAD JANE CATHETER PLACED CAN DC TO SNF TODAY SEE [id number] SEE MED REC DW RN AND PT AND CM Physical Exam Vital signs: Vital Signs 05/28/18 12:00 05/28/18 15:00 05/28/18 15:30 Temperature 97.7 F Pulse Rate 60 60 60 Respiratory Rate 18 18 18 Blood Pressure 160/74 H 117/65 141/74 H Pulse Oximetry 95 05/28/18 15:57 05/28/18 16:00 05/28/18 20:00 Temperature 97.7 F 97.9 F Pulse Rate 60 58 L 82 Respiratory Rate 18 18 18 Blood Pressure 149/73 H 138/66 157/70 H Pulse Oximetry 95 95 05/29/18 00:00 05/29/18 03:22 05/29/18 04:00 Temperature 97.9 F 97.7 F Pulse Rate 60 77 60 Respiratory Rate 18 16 Blood Pressure 163/71 H 150/72 H Pulse Oximetry 93 L 94 L 05/29/18 08:00 Temperature 98.3 F Pulse Rate 60 Respiratory Rate 18 Blood Pressure 178/81 H Pulse Oximetry 96 Intake & Output 05/28/18 05/29/18 05/29/18 18:59 06:59 18:59 Intake Total 100 / 100 480 / 480 Output Total 1100 / 1100 750 / 750 Balance -1000 / -1000 -270 / -270 Weight 92 kg Intake: IV 100 / 100 Rocephin Inj 2,000 MG In NS Inj 100 / 100 100 ML @ 200 mls/hr IV.SIG Q24H ROJELIO Rx#:[id number] Oral 480 / 480 Output: Urine 1100 / 1100 750 / 750 Other: Date of Last Bowel Movement 05/28/18 05/28/18 # Bowel Movements 0 Narrative: GENERAL: Pleasant elderly gentleman lying in bed not in respiratory distress. Awake alert and oriented x3 in no acute distress SKIN: Warm and dry. HEAD: Normocephalic. Atraumatic EYES: No scleral icterus. No injection or drainage. PERRLA EOMI Tongue is midline oral mucosa is moist NECK: Supple, trachea midline. No JVD or lymphadenopathy. CARDIOVASCULAR: Regular rate and rhythm without murmurs, gallops, or rubs. JANE CATHETER RIGHT SIDE OF CHEST RESPIRATORY: Breath sounds equal bilaterally. No accessory muscle use. GASTROINTESTINAL: Abdomen soft, non-tender, nondistended. MUSCULOSKELETAL: No cyanosis, trace edema upper thighs. BACK: Nontender without obvious deformity. No CVA tenderness. Appropriate mood and affect, insight and judgment is good - Urinary Catheter Management Straight Cath placed during this visit: no Results - Labs CBC & Chem 7: 05/29/18 04:00 05/29/18 04:00 Laboratory Results - last 24 hr 05/29/18 05/29/18 05/29/18 04:00 04:00 07:26 WBC 9.5 RBC 3.56 L Hgb 10.7 L Hct 30.8 L MCV 86.6 MCH 30.0 MCHC 34.7 RDW 13.8 Plt Count 229 MPV 8.2 Neut % (Auto) 63.0 Lymph % (Auto) 26.0 Mcmullen % (Auto) 6.6 Eos % (Auto) 3.6 Baso % (Auto) 0.8 Neut # (Auto) 6.0 Lymph # (Auto) 2.5 Mcmullen # (Auto) 0.6 Eos # (Auto) 0.3 Baso # (Auto) 0.1 WBC Differential . Differential Comment Auto diff final Sodium 140 Potassium 5.2 H Chloride 107 Carbon Dioxide 25.4 Anion Gap 8 BUN 55 H Creatinine 2.74 H Estimated GFR 22 L POC Glucose 206 H Random Glucose 271 H D Calcium 8.9 Phosphorus 4.3 Magnesium 1.7 Total Bilirubin 0.3 AST 24 ALT 37 Alkaline Phosphatase 92 Total Protein 6.1 L Albumin 2.4 L - Imaging Impressions Jane Line Insertion 05/28/18 22:45 CONCLUSION: 1. Uncomplicated Jane catheter placement as above. 2. Of note, patient has a comminuted fractures of the right clavicular diaphysis. Fracture through the anterior aspect of the right second rib as well. - Procedures KATT negative for any endocarditis May 25 JANE PLACEMENT RIGHT SIDE OF CHEST MAY 28 BY IR Assessment and Plan - Assessment (1) Hyperkalemia Code(s): E87.5 - Hyperkalemia Status: Acute (2) Acute renal failure Code(s): N17.9 - Acute kidney failure, unspecified Status: Acute (3) Elevated troponin Code(s): R74.8 - Abnormal levels of other serum enzymes Status: Acute (4) Elevated brain natriuretic peptide (BNP) level Code(s): R79.89 - Other specified abnormal findings of blood chemistry Status : Acute (5) Rhabdomyolysis Code(s): M62.82 - Rhabdomyolysis Status: Acute (6) Acute UTI Code(s): N39.0 - Urinary tract infection, site not specified Status: Acute (7) CESIA (acute kidney injury) Code(s): N17.9 - Acute kidney failure, unspecified Status: Acute (8) Acute dehydration Code(s): E86.0 - Dehydration Status: Acute - Plan 82-year-old male admitted secondary to severe dehydration and physical metabolic decompensation had a fall and was trapped on the floor for 3 days. E. coli UTI High-grade enterococcal bacteremia rule out endocarditis Severe sepsis Echocardiogram negative for endocarditis. KATT ordered, consult patient's wearing apparel folder Dr. Vazquez/Dr Benoti regional economist -continue IV Antbx Rocephin and vancomycin -Blood Cx E. Faecalis, Follow repeat blood Cx no growth x 3 days -urine culture E. Coli -May need extraction of AICD--KATT IS NEGATIVE Status post KATT which shows no endocarditis per Dr. Benoit May 25 ANTIBIOTICS PER ID- NEEDS LINE BEFORE DC HAS JANE NOW Acute renal failure history of chronic kidney disease stage IV Severe dehydration Rhabdomyolysis Clinically improving continue cautious IV hydration creatinine down to 2.67 baseline 2.3. Because of expiratory wheezes IV fluids was discontinued -BNP 900 improved from previous. -Continue incentive spirometry -continue scheduled albuterol for 2 days and prn -Repeat chest x-ray showed venous congestion, IVF held -Monitor electrolytes -Follow renal function -Monitor vital signs closely -consult nephrology Ultrasound of kidney showed medical renal disease and enlarged prostate LABS MAY BE CLOSE TO BASELINE NOW Elevated troponin Elevated BNP -Likely related to acute kidney injury, dehydration and rhabdomyolysis. Patient denies chest pain -EKG with ventricular pacing -Consider stress test -EF 25% on 2D Echo 05/22/18, -status post AICD unable to start ANNIE or Arb secondary to acute kidney injury continue beta-randa Hyperkalemia -Likely related to dehydration, s/p IV hydration -Monitor potassium levels -Monitor on telemetry Hypertension -Bp elevated -Follow blood pressures -Adjust treatments as needed -add prn Catapres -increased Norvasc for better control Diabetes mellitus type 2, improving hyperglycemia HYPOGLYCEMIA -Follow blood sugars -Insulin sliding scale continue Levemir 20 units at bedtime and discontinue preprandial insulin secondary to hypoglycemia. - Hypoglycemia protocol -Diabetic diet FOLLOW SUGARS Weakness Physical therapy evaluation, needs rehab ITCHING START ATARAX DVT Prophylaxis: Heparin SQ Code Status: FULL CODE Discussed Condition With: RN AND PT AND CM Discharge Planning: DC TO SNF TODAY
--- NOTE | 2018-05-29 11:03 | P.DS ---
Date of admission: 05/19/18 17:24 Primary care physician: No Primary Care Physician Attending physician on discharge: Clint Kenny Anticipated date of discharge: 05/29/18 Brief History from admission: Mr. Mccullough is an 82 year old male. He lives alone. He had a fall 3 days ago and has been on the floor of his home since. Today he was found by his son. He is brought into the emergency department. We find that he has a urinary tract infection and severe dehydration with decompensation. Clinical findings include hyperkalemia, acute renal failure, and rhabdomyolysis. Evidence of severe dehydration. Fluid hydration is initiated in the ER and will be continued overnight. Patient does have an elevated troponin and BNP but both of these are likely related to an accentuated by dehydration so they will repeat repeated in the morning for accuracy. Currently the patient gives some history but cannot recollect well and is not at his baseline mental state. He complains of some neck pain but no peripheral joint pains. No fevers. There is leukocytosis. Sepsis is suspected, though official diagnosis of sepsis is not possible due to normal heart rate, normal respiratory rate, and no fever. He does have leukocytosis. Infection source is the urine. Reported baseline medical conditions are hypertension, coronary artery disease, cardiac arrhythmia , and diabetes mellitus type 2. Patient update on day of discharge: Mr. Mccullough is an 82 year old male. He lives alone. He had a fall 3 days ago and has been on the floor of his home since. Today he was found by his son. He is brought into the emergency department. We find that he has a urinary tract infection and severe dehydration with decompensation. Clinical findings include hyperkalemia, acute renal failure, and rhabdomyolysis. Evidence of severe dehydration. Fluid hydration is initiated in the ER and will be continued overnight. Patient does have an elevated troponin and BNP but both of these are likely related to an accentuated by dehydration so they will repeat repeated in the morning for accuracy. Currently the patient gives some history but cannot recollect well and is not at his baseline mental state. He complains of some neck pain but no peripheral joint pains. No fevers. There is leukocytosis. Sepsis is suspected, though official diagnosis of sepsis is not possible due to normal heart rate, normal respiratory rate, and no fever. He does have leukocytosis. Infection source is the urine. Reported baseline medical conditions are hypertension, coronary artery disease, cardiac arrhythmia , and diabetes mellitus type 2. 10-3 Follow-up rhabdomyolysis. States he is tired. No UTI symptoms. Denies chest pain and shortness of breath. History of cardiomyopathy status post AICD denies history of CAD. 10-4 Follow-up UTI and bacteremia. States he is feeling better today. 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 No recent chest pain and shortness of breath. No history of CAD. 10-5 Follow-up bacteremia and diabetes mellitus. Patient had difficulty breathing last night improved today still on room air. Also was hypoglycemic states noncompliant with insulin at home. ECHO Mildly dilated left ventricle. Wall thickness is measured at the upper limits of normal. The left ventricular systolic function is severely reduced with estimated ejection fraction of 25%. Global hypokinesis possibly more pronounced in the mid to basal inferior region. Moderate mitral annular calcification is present. No definite evidence for endocarditis. 10-6 Follow-up sepsis. States he is doing okay denies shortness of breath currently on room air. He is voiding. 10-7 Follow-up sepsis, UTI, bacteremia. Patient laying in bed, seen and examined, patient stated he is feeling better, denies any chest pain, pain or shortness of breath or wheezes. Patient stated he laid on the floor for 3 days stated he fell at home without passing out, stated his legs just gave out and unable to get up. Patient denies any muscle pain. Denies any headache or dizziness, denies any nausea or vomiting, denies any diarrhea or constipation. Patient denies any fever or chills. KATT ON 05-25 HAD KATT-NEGATIVE FOR ENDOCARDITIS WANTS A DIET ENLARGED PROSTATE ON ULTRASOUND DW RN AND PT AND CM CONTINUE ANTIBIOTICS PER ID 10-9 ANTIBIOTICS PER ID COMPLAINS OF ITCHING WILL NEED SNF IN FUTURE DW RN AND PT AND CM AND ID 10-10 ANTIBIOTICS PER ID NEEDS PICC LINE BEFORE CAN GO TO SNF [facility]OP[facility] PICC TODAY AND SNF TOMORROW STILL HAVING SOME ITCHING- HAS ATARAX NEEDED FOR ITCHING DW RN AND PT AND CM 10- WILL NEED LINE BEFORE CAN BE DISCHARGED HAVING SOME ITCHING AGAIN- STATES THE ATARAX HELPED YESTERDAY [place] RN AND PT AND CM NO PICC PER NEPHROLOGY 10 HAD JANE CATHETER PLACED CAN DC TO SNF TODAY SEE 3008 SEE MED REC DW RN AND PT AND CM DS: Diagnosis - Discharge Diagnosis (1) Hyperkalemia Status: Acute (2) Acute renal failure Status: Acute (3) Elevated troponin Status: Acute (4) Elevated brain natriuretic peptide (BNP) level Status: Acute (5) Rhabdomyolysis Status: Acute (6) Acute UTI Status: Acute (7) CESIA (acute kidney injury) Status: Acute (8) Acute dehydration Status: Acute DS: Medications - Discharge Medications Prescriptions: levofloxacin [Levaquin] 500 mg PO DAILY #14 tab DS: Summary Hospital Course: Mr. Mccullough is an 82 year old male. He lives alone. He had a fall 3 days ago and has been on the floor of his home since. Today he was found by his son. He is brought into the emergency department. We find that he has a urinary tract infection and severe dehydration with decompensation. Clinical findings include hyperkalemia, acute renal failure, and rhabdomyolysis. Evidence of severe dehydration. Fluid hydration is initiated in the ER and will be continued overnight. Patient does have an elevated troponin and BNP but both of these are likely related to an accentuated by dehydration so they will repeat repeated in the morning for accuracy. Currently the patient gives some history but cannot recollect well and is not at his baseline mental state. He complains of some neck pain but no peripheral joint pains. No fevers. There is leukocytosis. Sepsis is suspected, though official diagnosis of sepsis is not possible due to normal heart rate, normal respiratory rate, and no fever. He does have leukocytosis. Infection source is the urine. Reported baseline medical conditions are hypertension, coronary artery disease, cardiac arrhythmia , and diabetes mellitus type 2. 10-3 Follow-up rhabdomyolysis. States he is tired. No UTI symptoms. Denies chest pain and shortness of breath. History of cardiomyopathy status post AICD denies history of CAD. 10-4 Follow-up UTI and bacteremia. States he is feeling better today. 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 No recent chest pain and shortness of breath. No history of CAD. 10-5 Follow-up bacteremia and diabetes mellitus. Patient had difficulty breathing last night improved today still on room air. Also was hypoglycemic states noncompliant with insulin at home. ECHO Mildly dilated left ventricle. Wall thickness is measured at the upper limits of normal. The left ventricular systolic function is severely reduced with estimated ejection fraction of 25%. Global hypokinesis possibly more pronounced in the mid to basal inferior region. Moderate mitral annular calcification is present. No definite evidence for endocarditis. 05-23 Follow-up sepsis. States he is doing okay denies shortness of breath currently on room air. He is voiding. 05-24 Follow-up sepsis, UTI, bacteremia. Patient laying in bed, seen and examined, patient stated he is feeling better, denies any chest pain, pain or shortness of breath or wheezes. Patient stated he laid on the floor for 3 days stated he fell at home without passing out, stated his legs just gave out and unable to get up. Patient denies any muscle pain. Denies any headache or dizziness, denies any nausea or vomiting, denies any diarrhea or constipation. Patient denies any fever or chills. KATT ON 05-25 HAD KATT-NEGATIVE FOR ENDOCARDITIS WANTS A DIET ENLARGED PROSTATE ON ULTRASOUND DW RN AND PT AND CM CONTINUE ANTIBIOTICS PER ID 05-26 ANTIBIOTICS PER ID COMPLAINS OF ITCHING WILL NEED SNF IN FUTURE DW RN AND PT AND CM AND ID 10 ANTIBIOTICS PER ID NEEDS PICC LINE BEFORE CAN GO TO SNF HOPEF[facility] PICC TODAY AND SNF TOMORROW STILL HAVING SOME ITCHING- HAS ATARAX NEEDED FOR ITCHING DW RN AND PT AND CM 05-28 WILL NEED LINE BEFORE CAN BE DISCHARGED HAVING SOME ITCHING AGAIN- STATES THE ATARAX HELPED YESTERDAY DW RN AND PT AND CM NO PICC PER NEPHROLOGY 05-29 HAD JANE CATHETER PLACED CAN DC TO SNF TODAY SEE 3008 SEE MED REC DW RN AND PT AND CM CONTINUE LEVAQUIN 500MG PO DAILY FOR 14 DAYS AND VANCO IV PER ID RECOMMENDATIONS - Time Spent with Patient Total time spent providing and/or coordinating discharge services: Greater than 30 minutes Exam Vital signs: Vital Signs 05/28/18 12:00 05/28/18 15:00 05/28/18 15:30 Temperature 97.7 F Pulse Rate 60 60 60 Respiratory Rate 18 18 18 Blood Pressure 160/74 H 117/65 141/74 H Pulse Oximetry 95 05/28/18 15:57 05/28/18 16:00 05/28/18 20:00 Temperature 97.7 F 97.9 F Pulse Rate 60 58 L 82 Respiratory Rate 18 18 18 Blood Pressure 149/73 H 138/66 157/70 H Pulse Oximetry 95 95 05/29/18 00:00 05/29/18 03:22 05/29/18 04:00 Temperature 97.9 F 97.7 F Pulse Rate 60 77 60 Respiratory Rate 18 16 Blood Pressure 163/71 H 150/72 H Pulse Oximetry 93 L 94 L 05/29/18 08:00 Temperature 98.3 F Pulse Rate 60 Respiratory Rate 18 Blood Pressure 178/81 H Pulse Oximetry 96 Intake & Output 05/28/18 05/29/18 05/29/18 18:59 06:59 18:59 Intake Total 100 / 100 480 / 480 Output Total 1100 / 1100 750 / 750 Balance -1000 / -1000 -270 / -270 Weight 92 kg Intake: IV 100 / 100 Rocephin Inj 2,000 MG In NS Inj 100 / 100 100 ML @ 200 mls/hr IV.SIG Q24H ROJELIO Rx#:[id number] Oral 480 / 480 Output: Urine 1100 / 1100 750 / 750 Other: Date of Last Bowel Movement 05/28/18 05/28/18 # Bowel Movements 0 Narrative: GENERAL: Pleasant elderly gentleman lying in bed not in respiratory distress. Awake alert and oriented x3 in no acute distress SKIN: Warm and dry. HEAD: Normocephalic. Atraumatic EYES: No scleral icterus. No injection or drainage. PERRLA EOMI Tongue is midline oral mucosa is moist NECK: Supple, trachea midline. No JVD or lymphadenopathy. CARDIOVASCULAR: Regular rate and rhythm without murmurs, gallops, or rubs. JANE CATHETER RIGHT SIDE OF CHEST RESPIRATORY: Breath sounds equal bilaterally. No accessory muscle use. GASTROINTESTINAL: Abdomen soft, non-tender, nondistended. MUSCULOSKELETAL: No cyanosis, trace edema upper thighs. BACK: Nontender without obvious deformity. No CVA tenderness. Appropriate mood and affect, insight and judgment is good Results Procedures completed during hospitalization: KATT negative for any endocarditis May 25 JANE PLACEMENT RIGHT SIDE OF CHEST MAY 28 BY IR Labs on day of discharge: Labs from last 24 hours 05/29/18 05/29/18 05/29/18 07:26 04:00 04:00 WBC 9.5 RBC 3.56 L Hgb 10.7 L Hct 30.8 L MCV 86.6 MCH 30.0 MCHC 34.7 RDW 13.8 Plt Count 229 MPV 8.2 Neut % (Auto) 63.0 Lymph % (Auto) 26.0 [place] % (Auto) 6.6 Eos % (Auto) 3.6 Baso % (Auto) 0.8 Neut # (Auto) 6.0 Lymph # (Auto) 2.5 [place] # (Auto) 0.6 Eos # (Auto) 0.3 Baso # (Auto) 0.1 WBC Differential . Differential Comment Auto diff final Sodium 140 Potassium 5.2 H Chloride 107 Carbon Dioxide 25.4 Anion Gap 8 BUN 55 H Creatinine 2.74 H Estimated GFR 22 L POC Glucose 206 H Random Glucose 271 H D Calcium 8.9 Phosphorus 4.3 Magnesium 1.7 Total Bilirubin 0.3 AST 24 ALT 37 Alkaline Phosphatase 92 Total Protein 6.1 L Albumin 2.4 L - Impressions ITS Impressions Head CT 05/19/18 15:49 CONCLUSION: 1. No acute hemorrhage or mass effect. 2. Moderate atrophic changes again noted. . Cervical Spine CT 05/19/18 15:50 CONCLUSION: 1. Moderate to severe degenerative changes are identified without evidence for acute fracture or listhesis. Venous Doppler Study 05/20/18 00:00 CONCLUSION: 1. Negative for deep venous thrombosis Chest X-Ray 05/23/18 00:00 CONCLUSION: Pulmonary venous congestion. Otherwise, stable exam compared to the prior study. Abdomen/Bladder Ultrasound 05/24/18 15:54 CONCLUSION: 1. No evidence of hydronephrosis. 2. There is increased echogenicity of the renal parenchyma bilaterally characteristic of chronic medical renal disease. 3. 1.9 cm left renal cyst. 4. 1.4 cm stone along the base the urinary bladder. 5. Diffuse enlargement of the prostate gland at 6 cm. Jane Line Insertion 05/28/18 22:45 CONCLUSION: 1. Uncomplicated Jane catheter placement as above. 2. Of note, patient has a comminuted fractures of the right clavicular diaphysis. Fracture through the anterior aspect of the right second rib as well. Discharge Plan - Discharge Disposition Patient Disposition: Discharge to SNF - Discharge Condition Condition: Fair - Discharge Order Discharge Orders: Discharge Order (Routine); Ordered 05/29/18 Ordered By: Clint Kenny - Discharge Details Anticipated Discharge Date: 05/29/18 Discharge Comment: DC TO SNF - Physicians Team Primary Care Provider: Primary Care Physici,No Attending Provider: Clint Kenny Other Providers: [employer] ; Nayana May MD ; [facility], [place] ; Albino Benoit MD ; Rosalba Jones MD
[2018-05-29 15:01] VITALS: BP 137/62; TEMP 98
== END 2018-05-29 15:41 ==
LOC: PHED 15:16 → PHEDA 17:24 → PHICU 18:28 → PH3 05-21 20:44 → N04 05-23 16:50
PROVIDERS: ADMIT Hospitalist; ATTEND Hospitalist